=== PATIENT | female | born 1985 | race Two or more races ===

== ENCOUNTER 2023-01-12 08:23 | Inpatient (IN) | payer MEDICAID, SELFPAY ==
[2023-01-12] VITALS (8 sets, daily range): BP systolic 103–116; BP diastolic 62–79; PULSE 59–95; RESP 16–25; TEMP 36.4–37.2; O2SAT 98–100; BMI 15.7
--- NOTE | ~2023-01-12 | CT_ITS ---
EXAMINATION: EXAMINATION: CT ABDOMEN AND PELVIS WITH CONTRAST CLINICAL INFORMATION: ABD pain, nausea, diarrhea, hx crohns COMPARISON: None. TECHNIQUE: Multidetector volumetric imaging was performed from the superior aspect of the liver through the pubic symphysis following administration of 85 mL Omnipaque 300 intravenous contrast. Sagittal and coronal reformatted images were obtained on the technologist workstation.. This CT examination was performed using dose optimization techniques as appropriate, variously including the following: *Automated exposure control *Adjustment of mA and/or kV according to patient size (this includes techniques or standardized protocols for targeted exams where dose is matched to indication/reason for exam; i.e. extremities or head) *Use of iterative reconstruction technique DLP: 226 mGy-cm FINDINGS: LUNG BASES: Minimal dependent right basilar atelectasis. LIVER, GALLBLADDER, AND BILIARY TREE: The liver is normal in size, shape, and attenuation. Incidental perfusional change adjacent to the falciform ligament and segment 4 of the liver of no clinical significance. No focal hepatic lesion or biliary ductal dilatation is present. The gallbladder is contracted but otherwise unremarkable with no evidence of radiopaque gallstones, gallbladder wall thickening, or obvious pericholecystic inflammatory changes. PANCREAS: There is subtle heterogeneous hypoattenuation between the head of the pancreas and adjacent duodenum. Sequela of groove pancreatitis could have this appearance and clinical correlation with amylase and lipase levels would be recommended. Pancreatic duct measures up to 4 mm in maximal diameter SPLEEN: Unremarkable. ADRENAL GLANDS: Unremarkable. KIDNEYS AND URETERS: The kidneys are normal in size, shape, and attenuation. No hydronephrosis, hydroureter, or calculi seen. No perinephric stranding. BLADDER: Unremarkable. GASTROINTESTINAL TRACT: Postoperative changes are seen with a right lower quadrant ileostomy. There is some mucosal enhancement within the bowel extending up to the ostomy site for relatively long segment extending from the ostomy into the right pelvis but I do not appreciate any definitive small bowel dilatation or obstructive obstruction. The rectum is not able to be clearly defined suggesting likely prior prostatectomy but this could be clinically correlated. Free fluid and uterus have fallen into the deep pelvis which limits assessment of this area. Patient is likely status post total colectomy and I do not appreciate any definitive: On the study although decompressed bowel loops do limit assessment. Correlation with patient's surgical history would be needed. ABDOMINAL WALL: Right lower quadrant ileostomy. LYMPHOVASCULAR STRUCTURES: No lymphadenopathy. The aorta is unremarkable. Circumaortic left renal vein. PELVIC VISCERA: Unremarkable. OSSEOUS STRUCTURES: Unremarkable. CT/CT abdomen pelvis w IV con IMPRESSION: 1. Patient is status post total colectomy with right lower quadrant ileostomy. There is abnormal mucosal enhancement within the small bowel extending up to the ostomy site but I do not appreciate any evidence for upstream obstruction. Patient is likely status post total colectomy with no definitive residual: Able to be delineated on the study. There is free fluid and uterus in the deep pelvis which limits assessment of this area. 2. There is abnormal heterogeneous hypoattenuation between the head of the pancreas and adjacent duodenum. Sequela of groove pancreatitis could have this appearance and clinical correlation with amylase and lipase levels would be recommended. I do not appreciate any discrete peripancreatic fluid collection or pancreatic parenchymal calcifications. There is mild prominence to the pancreatic duct measuring up to 4 mm in maximal diameter. Unfortunately I do not have prior images to compare to.
--- NOTE | ~2023-01-12 | XR_ITS ---
EXAMINATION: XR CHEST CLINICAL INFORMATION: Port identification COMPARISON: None available. TECHNIQUE: Frontal view of the chest was obtained. FINDINGS: A right-sided CT compatible Port-A-Cath is in place with the deep of the catheter projecting over the expected location of the superior cavoatrial junction. No evidence of pneumothorax. The lungs are symmetrically adequately expanded. The lungs are essentially appear clear without evidence of focal consolidation or changes of congestion. No evidence of pleural effusions. Cardiomediastinal silhouette is normal. Visualized upper abdomen and visualized osseous structures grossly appear unremarkable. XR/XR chest 1V IMPRESSION: Right-sided CT compatible Port-A-Cath tip terminates over the expected location of the superior cavoatrial junction. No pneumothorax. No acute pulmonary process.
--- NOTE | ~2023-01-12 | XR_ITS ---
EXAMINATION: XR ABDOMEN KUB CLINICAL INDICATION: Constipation, evaluate for obstruction. COMPARISON: CT abdomen/pelvis 01/12/2023. TECHNIQUE: AP view of the abdomen. 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 Stable nonspecific prominence of some loops of small bowel in the lower abdomen and pelvis compared to the CT from 01/12/2023. Unchanged gastric distention. No acute osseous findings. No abnormal soft tissue calcifications. Lung bases are clear. XR/XR KUB IMPRESSION: 1. Total colectomy with right lower quadrant ileostomy. 2. Stable nonspecific prominence of some loops of small bowel in the lower abdomen and pelvis. 3. Unchanged gastric distention.
--- NOTE | 2023-01-12 09:08 | ED.ABDPAIN ---
HPI - Abdominal Pain General Chief Complaint: Abdominal Pain Stated Complaint: Surgery post op pain Time Seen by Provider: 01/12/23 08:48 Source: patient Mode of arrival: ambulatory Limitations: language barrier ( Turkish-speaking medical billing manager utilized) History of Present Illness HPI narrative: patient is a 37-year-old female who presents to the emergency department for evaluation of abdominal pain. Patient moved here recently from [facility] where she was previously residing. Her prior care has been at [facility], followed by the gastroenterology office. She has a longstanding history of Crohn's disease with bowel obstructions and a colostomy. States that she has been on Remicade in the past but most recently on Cimzia, although she has not taken this for the past 3-4 months. Reporting that in August and September she was in [place]. She return to [place] in October and states that she underwent a surgery for bowel obstruction on 11/05/2022. She presents with increasing Diffuse abdominal pain, multiple watery stools daily 5-10, chills, nausea, and increasing weight loss though she cannot quantify exact amount or over how much time. Denies hematochezia, melena. denies known fever, sick contacts, chest pain, shortness of breath, difficulty breathing, numbness or tingling of her extremities, genitourinary symptoms. Related Data Home Medications Medication Instructions Recorded Confirmed oxycodone 5 mg tablet 5 mg PO QID PRN PHARMACY 01/12/23 01/12/23 zolpidem 5 mg tablet 5 mg PO BEDTIME PRN Insomnia 01/12/23 Allergies Allergy/AdvReac Type Severity Reaction Status Date / Time vancomycin Allergy Anaphylaxis Verified 01/12/23 08:38 Review of Systems Review of Systems Yes all other systems are reviewed and are negative FORMERLY [facility], [facility] Past Medical History Attestation statement: The following information was validated with the patient. Source: old records reviewed Medical History (Updated 01/12/23 @ 18:14 by Khadra Porter CNP) Colostomy in place History of small bowel obstruction Crohn's disease Social History Social History Patient Tobacco Use Status: Current everyday Tobacco user Advance Directives: No Advance Directives Information Provided: Yes Physical Exam ED Vital Signs: Vital Signs - 24 hr 01/12/23 08:39 01/12/23 11:29 01/12/23 12:58 Temperature 98.1 F 99.0 F 98.4 F Pulse Rate 95 87 70 Respiratory Rate 16 16 16 Blood Pressure 112/69 112/72 103/62 Pulse Oximetry 98 100 99 Oxygen Delivery Method Room Air Room Air Room Air 01/12/23 14:25 Temperature 98.6 F Pulse Rate 77 Respiratory Rate 16 Blood Pressure 116/79 Pulse Oximetry 99 Oxygen Delivery Method Room Air BMI result Body Mass Index 15.7 Appearance: Alert.?Oriented to person, place and time. No acute distress.?Normal affect. Eyes: Pupils equal, round and reactive to light.? ENT: Pharynx normal.?? Neck: Normal inspection.? Neck supple.?? CVS: Heart sounds normal. Normal heart rate and rhythm.? Pulses normal.?? Respiratory: No respiratory distress.? Lung sounds clear to auscultation bilaterally?? Abdomen: Soft flat, with surgical scars. Right-sided ileostomy with watery output. Diffuse tenderness upon palpation. Normoactive bowel sounds. No pulsatile mass.?? Skin: Skin warm and dry.? Normal skin color.? Extremities: No lower extremity edema. Neuro: Moves all extremities spontaneously. Sensation intact bilaterally Ambulates with normal steady gait. Procedures EJ/Peripheral Line Arm R: Time Out Performed: Yes Skin Cleansed in Sterile Fashion: Yes Size (gauge): 20 IV Secured and Dressing Applied: Yes Patient Tolerated Procedure: well Additional Comments: US guided access Course Reevaluation(s) Reevaluation #1: CBC reveals no evidence of leukocytosis, microcytic anemia with hemoglobin and hematocrit 9.9 and 35.2, unaware baseline, no current reports of active bleeding. CMP is overall unremarkable. Lipase within normal limits. HCG is negative. Mildly elevated CRP at 0.82, with ESR normal at 16. No lactic acidosis. CT of the abdomen and pelvis is pending at this time. Time: 13:43 Reevaluation #2: CT of the abdomen and pelvis revealing ileostomy with abnormal closely enhancement within the small bowel a without evidence of obstruction, hypoattenuation between head of the pancreas and adjacent duodenum which may be attributed to sequela of pancreatitis although lipase levels are normal i suspect less likely acute pancreatitis. I consulted with gastroenterology; Dr. Higgins recommends obtaining GI panel, C diff, fecal procal, and single dose of Solu-Medrol pending studies prior to continuing solumedrol and re-evaluation with admission. Time: 15:21 Reevaluation #3: spoke with hospitalist service; Dr. Babcock who accepts patient for admission to medicine service, fore adamaris suh. Patient agreeable with plan of care. Time: 16:07 Medical Decision Making Medical Decision Making MDM Narrative: Patient is a 37-year-old female with past medical history of Crohn's disease and anemia presenting to the emergency department for evaluation of increasing abdominal pain with nausea diarrhea and weight loss. She has recently moved to the area and has not yet established care with a new pipe caulker. Plan to attempt to obtain records from [facility], though with being the weekend I anticipate that there may be some difficulty in obtaining these records today. Will obtain CBC to evaluate for leukocytosis/ anemia, CMP and lipase to evaluate for abnormal electrolytes /abnormal renal function/ abnormal hepatic/biliary function, ESR and CRP, CT of the abdomen and pelvis and Urinalysis. Patient received 1 L normal saline IV fluid, Zofran IV for nausea, Dilaudid IV for pain as she reports that morphine has not previously alleviated her pain. Differential Diagnosis Differential Diagnoses: The differential diagnosis associated with the presentation includes (Crohn's flare, bowel obstruction, colitis, gastroenteritis, viral syndrome) Admission/Observation Consideration of admission/observation: Escalation of care including admission/observation considered (I considered admission for abdominal pain, see course narrative for further detail) Consult Healthcare Provider Management of the patient was discussed with: Hospitalist (see course narrative) and Business Insurance Agent (see course narrative) Lab Data [facility] Lab Attestation statement: I reviewed the patient's lab results. (See course narrative for further detail) 01/12/23 10:54 01/12/23 11:23 Labs: Lab Results 01/12/23 01/12/23 01/12/23 Range/Units 10:54 10:55 11:23 WBC 8.3 (4.8-10.8) X10*3/uL RBC 5.23 (4.20-5.50) X10*6/uL Hgb 9.9 L (12.0-16.0) g/dl Hct 35.2 L (37.0-47.0) % MCV 67.3 L (80.0-98.0) fL MCH 18.9 L (27.0-33.0) pg MCHC 28.1 L (31.0-35.0) g/dl RDW 25.7 H (11.0-16.0) % Plt Count 337 (160-400) X10*3/uL MPV Not Reportable Immature Gran % (Auto) 0.1 (0.0-0.4) % Neut % (Auto) 66.7 (45-73) % Lymph % (Auto) 24.1 (20-40) % [place] % (Auto) 6.6 (2-11) % Eos % (Auto) 2.0 (0-4) % Baso % (Auto) 0.5 (0-2) % Lymph # (Auto) 2.0 (1.2-4.9) X10*3/uL [place] # (Auto) 0.6 (0.1-1.2) X10*3/uL Eos # (Auto) 0.2 (0.0-0.4) X10*3/uL Baso # (Auto) 0.0 (0.0-0.2) X10*3/uL Abs Immat Gran (auto) 0.01 (0.00-0.03) X10*3/uL Absolute Neuts (auto) 5.6 (2.0-8.3) x10*3/uL Absolute Nucleated RBC 0.000 (0.0-0.012) X10*3/uL Nucleated RBC % (auto) 0.0 (0.0-0.2) /100WBC ESR 16 (0-20) MM/HR Sodium 142 (135-145) mmol/L Potassium 3.6 (3.3-5.1) mmol/L Chloride 110 H (96-108) mmol/L Carbon Dioxide 24 (22-29) mmol/L Anion Gap 12 (12-20) BUN 7 L (9-16) mg/dL Creatinine 0.57 (0.5-1.4) mg/dL Estim Creat Clear Calc 84.0 Estimated GFR > 60 Random Glucose 84 (60-115) mg/dL Lactic Acid 1.9 (0.5-2.0) mmol/L Calcium 10.0 (8.4-10.2) mg/dL Total Bilirubin 0.3 (0.0-1.0) mg/dL AST 18 (5-31) U/L ALT 10 (0-31) U/L Alkaline Phosphatase 78 (39-117) U/L C-Reactive Protein 0.82 H (< or = 0.50) mg/dL Total Protein 9.0 H (6.5-8.0) g/dL Albumin 4.5 (3.5-5.0) g/dL Amylase 85 (28-100) U/L Lipase 58 (8-78) U/L Beta HCG, Quant < 2 mIU/mL Independent Interpretation I performed an independent interpretation of an: Plain X-Ray Radiology Impression Discussion of test interpretation with radiology: I have reviewed the radiologist's reading. Radiologist Impression: XR/XR chest 1V IMPRESSION: Right-sided CT compatible Port-A-Cath tip terminates over the expected location of the superior cavoatrial junction. No pneumothorax. No acute pulmonary process. CT/CT abdomen pelvis w IV con IMPRESSION: 1. Patient is status post total colectomy with right lower quadrant ileostomy. There is abnormal mucosal enhancement within the small bowel extending up to the ostomy site but I do not appreciate any evidence for upstream obstruction. Patient is likely status post total colectomy with no definitive residual: Able to be delineated on the study. There is free fluid and uterus in the deep pelvis which limits assessment of this area. 2. There is abnormal heterogeneous hypoattenuation between the head of the pancreas and adjacent duodenum. Sequela of groove pancreatitis could have this appearance and clinical correlation with amylase and lipase levels would be recommended. I do not appreciate any discrete peripancreatic fluid collection or pancreatic parenchymal calcifications. There is mild prominence to the pancreatic duct measuring up to 4 mm in maximal diameter. Unfortunately I do not have prior images to compare to. Medications Administered Generic Name Dose Route Start Last Admin Trade Name Freq PRN Reason Stop Dose Admin Heparin Sodium (Porcine) 5,000 unit 01/12/23 16:30 01/12/23 16:41 Heparin Sodium,Porcine 5,000 Unit/Ml Vial SUBCUT 5,000 unit Q12H MATHIEU Administration Hydromorphone HCl 1 mg 01/12/23 16:26 01/12/23 16:42 Hydromorphone Hcl 1 Mg/Ml Syringe IVPUSH 1 mg Q4H PRN Administration Pain, Severe (Pain Scale 7-10) Protocol Sodium Chloride 1,000 mls @ 75 mls/hr 01/12/23 16:30 01/12/23 16:41 Ns IVCONT 75 mls/hr .[id number] MATHIEU Administration Discontinued Medications Generic Name Dose Route Start Last Admin Trade Name Jose PRN Reason Stop Dose Admin Hydromorphone HCl 1 mg 01/12/23 09:05 01/12/23 11:33 Hydromorphone Hcl 1 Mg/Ml Syringe IVPUSH 01/12/23 09:06 1 mg ONCE ONE Administration Protocol Hydromorphone HCl 0.5 mg 01/12/23 13:52 01/12/23 13:58 Hydromorphone Hcl 0.5 Mg/0.5 Ml Syringe IVPUSH 01/12/23 13:53 0.5 mg ONCE ONE Administration Protocol Sodium Chloride 1,000 mls @ 999 mls/hr 01/12/23 08:45 01/12/23 12:48 Ns IV 01/12/23 09:45 Infused .Q1H1M MATHIEU Infusion Iohexol 85 ml 01/12/23 12:56 01/12/23 12:57 Iohexol 350 Mg/Ml 75 Ml Infus..Btl IV 01/12/23 12:57 85 ml ONCE ONE Administration Methylprednisolone Sodium Succinate 60 mg 01/12/23 15:57 01/12/23 16:41 Methylprednisolone Sod Succ 125 Mg/2 Ml Vial IVPUSH 01/12/23 15:58 60 mg ONCE ONE Administration Ondansetron HCl 4 mg 01/12/23 09:05 01/12/23 11:33 Ondansetron Hcl 4 Mg/2 Ml Vial IVPUSH 01/12/23 09:06 4 mg ONCE ONE Administration Discharge Plan Discharge Clinical Impression: Exacerbation of Crohn's disease Patient Disposition: Admitted As Inpatient
--- NOTE | 2023-01-12 10:10 | PC.NURSE ---
awaiting xray to identify the port, pt is difficult stick.
[2023-01-12 11:02] LABS: MANUAL DIFF FLAG NO
--- NOTE | 2023-01-12 11:07 | PC.NURSE ---
multiple attempts to access port, iv attempt unsuccessful. provider at bedside for ultrasound guided iv
[2023-01-12 11:10] LABS: Basophils Percent Auto 0.5 % (0-2); Eosinophils Absolute Auto 0.2 X10*3/uL (0.0-0.4); Hematocrit 35.2 % (37.0-47.0); Hemoglobin 9.9 g/dl (12.0-16.0); Imm Gran Abs Auto 0.01 X10*3/uL (0.00-0.03); Imm Gran Pct Auto 0.1 % (0.0-0.4); Lymphocytes Percent Auto 24.1 % (20-40); Mean Corpuscular HGB Conc 28.1 g/dl (31.0-35.0); Mean Corpuscular Hemoglobin 18.9 pg (27.0-33.0); Mean Corpuscular Volume 67.3 fL (80.0-98.0); Monocytes Absolute Auto 0.6 X10*3/uL (0.1-1.2); Monocytes Percent Auto 6.6 % (2-11); Neutrophils Absolute Auto 5.6 x10*3/uL (2.0-8.3); Neutrophils Percent Auto 66.7 % (45-73); Platelet Count 337 X10*3/uL (160-400); Red Blood Count 5.23 X10*6/uL (4.20-5.50); Red Cell Distribution Width 25.7 % (11.0-16.0); White Blood Count 8.3 X10*3/uL (4.8-10.8)
[2023-01-12 11:17] LABS: Lactic Acid 1.9 mmol/L (0.5-2.0)
[2023-01-12] MEDS: ondansetron HCL 4 MG/2 ML VIAL IVPUSH (11:33)
[2023-01-12] MEDS: HYDROmorphone HCl 1 MG/ML SYRINGE IVPUSH ×3 (11:33→20:50)
[2023-01-12] MEDS: 0.9 % Sodium Chloride 1,000 ML 999 ML IV (11:33)
--- NOTE | 2023-01-12 11:36 | PC.NURSE ---
ultrasound guided iv established, medicated per the MAR with fluids infusing
[2023-01-12 11:49] LABS: Erythrocyte Sedimentation Rate 16 MM/HR (0-20)
[2023-01-12 11:55] LABS: Alanine Aminotransferase 10 U/L (0-31); Albumin Level 4.5 g/dL (3.5-5.0); Alkaline Phosphatase 78 U/L (39-117); Anion Gap 12 (12-20); Aspartate Amino Transferase 18 U/L (5-31); Bilirubin Total 0.3 mg/dL (0.0-1.0); Blood Urea Nitrogen 7 mg/dL (9-16); C Reactive Protein 0.82 mg/dL (< or = 0.50); Carbon Dioxide 24 mmol/L (22-29); Chloride 110 mmol/L (96-108); Estimated Glomerular Filt Rate > 60; Glucose Random 84 mg/dL (60-115); Lipase 58 U/L (8-78); Potassium 3.6 mmol/L (3.3-5.1); Sodium 142 mmol/L (135-145)
[2023-01-12 11:57] LABS: HCG Quantitative < 2 mIU/mL
--- NOTE | 2023-01-12 12:48 | PC.NURSE ---
fluids have completed infusion. at CT scan at this time
[2023-01-12] MEDS: iohexoL 350 MG/ML 75 ML INFUS..BTL 85 ML IV (12:57)
[2023-01-12] MEDS: HYDROmorphone HCl 0.5 MG/0.5 ML SYRINGE IVPUSH (13:58)
--- NOTE | 2023-01-12 15:46 | PC.NURSE ---
continues to rest quietly in room, pt adamantly requesting to eat - provider stated no food or drinks at this time. call romo within reach.
[2023-01-12 15:54] LABS: Amylase 85 U/L (28-100)
--- NOTE | 2023-01-12 16:16 | PM.IMHP ---
History of Present Illness Date of Service: 01/12/23 Chief Complaint: Abdominal pain and diarrhea 37-year-old woman with a history of Crohn's disease and is status post colectomy and colostomy. She recently moved from [facility] and had been on Remicade at 1 point but most recently Cimzia. She does report that she has not taken it in the last 3 months. Her last surgery was in October where she was diagnosed with a bowel obstruction. Today she reports increased diffuse abdominal pain with at least 5-10 watery stools a day. She also reports chills, nausea and poor appetite with weight loss. She mostly has chronic abd pain. She is also currently homeless. No fever leukocytosis noted, labs within acceptable limits. Abdominal CT showing since possibly some sequela pancreatitis but has a normal lipase. Chest x-ray shows no consolidation or effusion. In the ER she was given a dose of Solu-Medrol, Dilaudid, Zofran and IV fluids. She will be admitted for further management and treatment of acute on chronic Crohn's flare Review of Systems Review of Systems: Denies any recent fever chills or decrease in appetite respiratory denies any shortness of breath coverage production cardiovascular denies chest pain gastrointestinal see HPI genitourinary denies any dysuria frequency or hematuria musculoskeletal denies any joint pain or swelling neuropsych denies any weakness or seizures all other systems reviewed are negative [facility] Medical History (Updated 01/12/23 @ 18:14 by Khadra Porter CNP) Colostomy in place History of small bowel obstruction Crohn's disease Social History Household Members: None Housing: Homeless Do you presently have visiting nurse or other home services: No Patient Tobacco Use Status: Current everyday Tobacco user Cigarettes Per Day: 7 Patient Interested in Nicotine Replacement: No Use of substances other than those prescribed or required for medical reasons: No Substance Use Type: Marijuana Last Used Substance: Weeks (ago) Last Used Substance Other:: 2 weeks ago, marijuana Currently Displaying Signs/Symptoms of Drug Intoxication Withdrawal: No Have you been hit, kicked, punched, or otherwise hurt by someone within the past year? If so, by whom?: No Is there a partner from a previous relationship who is making you feel unsafe now?: No Are you made to feel afraid or neglected: No Advance Directives: No Advance Directives Information Provided: Yes Do you have thoughts of harming others: None Do you have a plan to hurt others: No Plan Nutrition Risks: No Nutritional Risk Patient : No service: No Meds Allergies Allergy/AdvReac Type Severity Reaction Status Date / Time vancomycin Allergy Anaphylaxis Verified 01/12/23 08:38 Home Medications Medication Instructions Recorded Confirmed Last Taken Type oxycodone 5 mg tablet 5 mg PO QID PRN PHARMACY 01/12/23 01/12/23 12/29/22 History zolpidem 5 mg tablet 5 mg PO BEDTIME PRN Insomnia 01/12/23 12/29/22 History Physical Exam Vital Signs and Narrative: Vital Signs: Last Vital Signs Temp 98.6 F 01/12/23 14:25 Pulse 77 01/12/23 14:25 Resp 16 01/12/23 14:25 BP 116/79 01/12/23 14:25 Pulse Ox 99 01/12/23 14:25 O2 Del Method Room Air 01/12/23 14:25 BMI result Body Mass Index 15.7 Appearing in no acute distress head is normocephalic atraumatic eyes pupils are PERRLA sclera is anicteric mouth throat mucous membranes are intact and moist neck is supple no lymphadenopathy, no JVD noted lung sounds are clear to auscultation heart regular rate rhythm, clear S1, S2 positive bowel sounds, abdomen is soft, diffuse tenderness, colostomy neuro patient is alert x3, no focal deficits Results Labs 01/13/23 09:36 01/13/23 09:36 Labs: Laboratory Results - last 24 hr 01/12/23 01/12/23 01/12/23 10:54 10:55 11:23 MCV 67.3 L MCH 18.9 L MCHC 28.1 L RDW 25.7 H Plt Count 337 MPV Not Reportable Immature Gran % (Auto) 0.1 Neut % (Auto) 66.7 Lymph % (Auto) 24.1 [place] % (Auto) 6.6 Eos % (Auto) 2.0 Baso % (Auto) 0.5 Lymph # (Auto) 2.0 [place] # (Auto) 0.6 Eos # (Auto) 0.2 Baso # (Auto) 0.0 Abs Immat Gran (auto) 0.01 Absolute Neuts (auto) 5.6 Absolute Nucleated RBC 0.000 Nucleated RBC % (auto) 0.0 ESR 16 Anion Gap 12 Estim Creat Clear Calc 84.0 Estimated GFR > 60 Random Glucose 84 Lactic Acid 1.9 Calcium 10.0 Total Bilirubin 0.3 AST 18 ALT 10 Alkaline Phosphatase 78 C-Reactive Protein 0.82 H Total Protein 9.0 H Albumin 4.5 Amylase 85 Lipase 58 Beta HCG, Quant < 2 Imaging Radiologist's Impressions: Impressions Chest X-Ray 01/12/23 10:13 IMPRESSION: Right-sided CT compatible Port-A-Cath tip terminates over the expected location of the superior cavoatrial junction. No pneumothorax. No acute pulmonary process. Abdomen/Pelvis CT 01/12/23 12:57 IMPRESSION: 1. Patient is status post total colectomy with right lower quadrant ileostomy. There is abnormal mucosal enhancement within the small bowel extending up to the ostomy site but I do not appreciate any evidence for upstream obstruction. Patient is likely status post total colectomy with no definitive residual: Able to be delineated on the study. There is free fluid and uterus in the deep pelvis which limits assessment of this area. 2. There is abnormal heterogeneous hypoattenuation between the head of the pancreas and adjacent duodenum. Sequela of groove pancreatitis could have this appearance and clinical correlation with amylase and lipase levels would be recommended. I do not appreciate any discrete peripancreatic fluid collection or pancreatic parenchymal calcifications. There is mild prominence to the pancreatic duct measuring up to 4 mm in maximal diameter. Unfortunately I do not have prior images to compare to. Assessment and Plan (1) Exacerbation of Crohn's disease: Status: Acute Plan 37-year-old woman admitted with acute on chronic abdominal pain likely secondary to Crohn's flare Possible acute on chronic Crohn's flare previously on Cimzia, but not for 3 months Continue IV Solu-Medrol 60 mg daily stool studies ordered and results are pending GI consultation pending IV fluids Clear liquid diet so if able to tolerate for now Pain management Microcytic anemia No signs of acute blood loss Monitor H&H DVT prophylaxis with heparin Full code Patient requires 2 inpatient midnights for treatment of acute on chronic Crohn's flare requiring pain management with IV narcotics and IV steroids Time Spent With Patient Time: Total time managing care of this patient today ____ minutes. Quality Stroke Does the patient have a stroke diagnosis?: No VTE Prior VTE?: No VTE Risk Level:: Medical - moderate - high VTE Device Contraindication: Treatment Not Indicated VTE Drug Contraindication: N/A - Med Ordered
[2023-01-12] MEDS: 0.9 % Sodium Chloride 1,000 ML 75 ML IVCONT (16:41)
[2023-01-12] MEDS: Heparin Sodium,Porcine 5,000 UNIT/ML VIAL 5000 UNIT SUBCUT (16:41)
[2023-01-12] MEDS: methylPREDNISolone Sod Succ 125 MG/2 ML VIAL 60 MG IVPUSH (16:41)
--- NOTE | 2023-01-12 17:08 | PC.NURSE ---
medicated per the MAR for pain, normal saline infusing 75ml/hr. pt educated on need to be on clear liquid diets for the time being, refusing and eating a sub that her friend brought her. call romo within reach awaiting bed assignment
--- NOTE | 2023-01-12 17:10 | PHA.MEDREC ---
Pharmacy Consult ? Medication Reconciliation Pharmacy has completed the medication reconciliation.Patient knew medication but said stop most meds months ago and only taking oxycodone and zolpidem now
--- NOTE | 2023-01-12 19:57 | PC.NURSE ---
report given to taiwo Fraser
[2023-01-13] MEDS: HYDROmorphone HCl 1 MG/ML SYRINGE IVPUSH ×4 (00:50→13:11)
--- NOTE | 2023-01-13 01:06 | PC.NURSE ---
Pt reports pyoderma r/t Crohn's disease to RLE extending from below the knee to ankle. Pt states dressing was changed this morning and refusing full assessment or dressing change at this time. Scant drainage noted on dressing. Pt agreeable to dressing change in the morning.
[2023-01-13 03:53] VITALS: BP 112/66; PULSE 60; RESP 18; TEMP 36.6; O2SAT 99
[2023-01-13] MEDS: Heparin Sodium,Porcine 5,000 UNIT/ML VIAL 5000 UNIT SUBCUT (04:59)
[2023-01-13] MEDS: 0.9 % Sodium Chloride 1,000 ML 75 ML IVCONT (05:00)
[2023-01-13 06:20] LABS: CDiff Gene PCR POSITIVE (Negative)
[2023-01-13 06:51] LABS: CDIFF Internal ctrl Dots and bkg OK (V); CDiff Toxin Negative (Negative)
[2023-01-13 07:27] VITALS: BP 112/56; PULSE 61; RESP 20; TEMP 37.3; O2SAT 99
[2023-01-13] MEDS: methylPREDNISolone Sod Succ 125 MG/2 ML VIAL 60 MG IVPUSH (09:08)
[2023-01-13] MEDS: 0.9 % Sodium Chloride Flush 3 ML SYRINGE IVFLUSH ×3 (09:08→23:47)
--- NOTE | 2023-01-13 09:08 | HO.PM.IMPN ---
Subjective Subjective Date of Service: 01/13/23 Review of Systems Follow up crohns flare still with some abd pain and diarrhea no nausea and vomiting Physical Exam Vital Signs: Vital Signs: Last Vital Signs Temp 99.1 F 01/13/23 07:27 Pulse 61 01/13/23 07:27 Resp 20 01/13/23 07:27 BP 112/56 L 01/13/23 07:27 Pulse Ox 99 01/13/23 07:27 O2 Del Method Room Air 01/13/23 07:27 BMI result Body Mass Index 15.7 Appearing in no acute distress lung sounds are clear to auscultation heart regular rate rhythm, clear S1, S2 positive bowel sounds, abdomen is soft, nontender neuro patient is alert x3, no focal deficits Objective Data Active Medications Acetaminophen (Acetaminophen 325 Mg Tablet) 650 mg PO Q6H PRN PRN Reason: Pain, Mild (Pain Scale 1-3) Heparin Sodium (Porcine) (Heparin Sodium,Porcine 5,000 Unit/Ml Vial) 5,000 unit SUBCUT Q12H [facility] Last Admin: 01/13/23 04:59 Dose: 5,000 unit Documented By: FLORENCE Hydromorphone HCl (Hydromorphone Hcl 1 Mg/Ml Syringe) 1 mg IVPUSH Q4H PRN; Protocol PRN Reason: Pain, Severe (Pain Scale 7-10) Last Admin: 01/13/23 09:06 Dose: 1 mg Documented By: VITO Sodium Chloride (Ns) 1,000 mls @ 75 mls/hr IVCONT .[id number] [facility] Last Admin: 01/13/23 05:00 Dose: 75 mls/hr Documented By: FLORENCE Methylprednisolone Sodium Succinate (Methylprednisolone Sod Succ 125 Mg/2 Ml Vial) 60 mg IVPUSH DAILY [facility] Ondansetron HCl (Ondansetron Hcl 4 Mg/2 Ml Vial) 4 mg IVPUSH Q8H PRN PRN Reason: Nausea and Vomiting Sodium Chloride (0.9 % Sodium Chloride Flush 3 Ml Syringe) 3 ml IVFLUSH QSHIFT [facility] Last Admin: 01/13/23 00:04 Dose: Not Given Documented By: FLORENCE Non-Admin Reason: IV Running Labs 01/13/23 09:36 01/13/23 09:36 Labs: Laboratory Results - last 24 hr 01/12/23 01/12/23 01/12/23 10:54 10:55 11:23 MCV 67.3 L MCH 18.9 L MCHC 28.1 L RDW 25.7 H Plt Count 337 MPV Not Reportable Immature Gran % (Auto) 0.1 Neut % (Auto) 66.7 Lymph % (Auto) 24.1 Reynolds % (Auto) 6.6 Eos % (Auto) 2.0 Baso % (Auto) 0.5 Lymph # (Auto) 2.0 [place] # (Auto) 0.6 Eos # (Auto) 0.2 Baso # (Auto) 0.0 Abs Immat Gran (auto) 0.01 Absolute Neuts (auto) 5.6 Absolute Nucleated RBC 0.000 Nucleated RBC % (auto) 0.0 ESR 16 Anion Gap 12 Estim Creat Clear Calc 84.0 Estimated GFR > 60 Random Glucose 84 Lactic Acid 1.9 Calcium 10.0 Total Bilirubin 0.3 AST 18 ALT 10 Alkaline Phosphatase 78 C-Reactive Protein 0.82 H Total Protein 9.0 H Albumin 4.5 Amylase 85 Lipase 58 Beta HCG, Quant < 2 C. difficile Tox B Gene C. difficile Toxin A&B C. difficile Interpret 01/13/23 04:50 MCV MCH MCHC RDW Plt Count MPV Immature Gran % (Auto) Neut % (Auto) Lymph % (Auto) Reynolds % (Auto) Eos % (Auto) Baso % (Auto) Lymph # (Auto) Reynolds # (Auto) Eos # (Auto) Baso # (Auto) Abs Immat Gran (auto) Absolute Neuts (auto) Absolute Nucleated RBC Nucleated RBC % (auto) ESR Anion Gap Estim Creat Clear Calc Estimated GFR Random Glucose Lactic Acid Calcium Total Bilirubin AST ALT Alkaline Phosphatase C-Reactive Protein Total Protein Albumin Amylase Lipase Beta HCG, Quant C. difficile Tox B Gene POSITIVE A* C. difficile Toxin A&B Negative C. difficile Interpret SEE NOTE Assessment and Plan (1) Exacerbation of Crohn's disease: Status: Acute Plan 37-year-old woman admitted with acute on chronic abdominal pain likely secondary to Crohn's flare Possible acute on chronic Crohn's flare previously on Cimzia, but not for 3 months Continue IV Solu-Medrol 60 mg daily stool studies ordered and results are pending GI consultation pending IV fluids patient insisiting on eating solid food, reg diet started Pain management CDIFF allergy to vancomycin add flagyl 500mg TID for 10 days Microcytic anemia No signs of acute blood loss Monitor H&H DVT prophylaxis with heparin Attending Dr. Sinha Full code Continue hospitalization for treatment of acute on chronic Crohn's flare requiring pain management with IV narcotics and IV steroids Time Spent With Patient Time: Total time managing care of this patient today ____ minutes. Quality Stroke Does the patient have a stroke diagnosis?: No VTE Prior VTE?: No VTE Risk Level:: Medical - moderate - high VTE Device Contraindication: Treatment Not Indicated VTE Drug Contraindication: N/A - Med Ordered
--- NOTE | 2023-01-13 09:35 | MHC.CM.PN ---
EMR REVIEWED, PT ADMITTED W/CHROHNS FLARE, CM MET W/PT VIA BILLET STRAIGHTENER, PT REQUESTING ASSISTANCE W/HALF-WAY/HOUSING/INSURNACE, PT THRIVE ASSESSMENT POSITIVE, PT PROVIDED W/[employer] PAMPHLET/BOOKLET, REFERRAL PLACED TO FS FOR ASSISTANCE W/MH, [facility]YER GIVEN W/[facility]MG PROVIDERS/SPECIALISTS, PT ALSO INTERESTED IN WOUND CLINIC HOWEVER PT WILL NOT BE ABLE TO BE REFERRED UNTIL FIRST NEW PCP APPT. PT REPORTS SHE DOES RECEIVE SS DISABILITY SO SHE DOES HAVE A MONTHLY INCOME HOWEVER REQUESTING HELP W/HOUSING AND WAS INSTRUCTED TO CALL OR VISIT DEPT OF TRANSITIONAL ASSISTANCE TO GET ON WAIT LIST FOR HOUSING, CM DISCUSSED [address] AND [facility] HOWEVER PT WANTS TO STAY IN [place] IF POSSIBLE, PT REPORTS SHE CONTACTED ONE HALF-WAY IN [place] HOWEVER THE HALF-WAY WAS FOR WOMEN W/CHILDREN ONLY. PT DOES NOT HAVE A PCP, HCP, ASSISTANCE OFFERED TO COMPLETE.
[2023-01-13 09:53] LABS: MANUAL DIFF FLAG NO
[2023-01-13 10:04] LABS: Basophils Percent Auto 0.3 % (0-2); Eosinophils Percent Auto 0.1 % (0-4); Hematocrit 30.9 % (37.0-47.0); Hemoglobin 8.9 g/dl (12.0-16.0); Imm Gran Abs Auto 0.02 X10*3/uL (0.00-0.03); Imm Gran Pct Auto 0.2 % (0.0-0.4); Lymphocytes Absolute Auto 3.3 X10*3/uL (1.2-4.9); Lymphocytes Percent Auto 35.2 % (20-40); Mean Corpuscular HGB Conc 28.8 g/dl (31.0-35.0); Monocytes Absolute Auto 0.7 X10*3/uL (0.1-1.2); Monocytes Percent Auto 6.9 % (2-11); Neutrophils Absolute Auto 5.4 x10*3/uL (2.0-8.3); Neutrophils Percent Auto 57.3 % (45-73); Platelet Count 379 X10*3/uL (160-400); Red Blood Count 4.68 X10*6/uL (4.20-5.50); Red Cell Distribution Width 25.1 % (11.0-16.0); White Blood Count 9.4 X10*3/uL (4.8-10.8)
[2023-01-13 10:22] LABS: Anion Gap 10 (12-20); Blood Urea Nitrogen 6 mg/dL (9-16); Calcium 9.7 mg/dL (8.4-10.2); Carbon Dioxide 23 mmol/L (22-29); Chloride 111 mmol/L (96-108); Estimated Glomerular Filt Rate > 60; Glucose Random 83 mg/dL (60-115); Sodium 140 mmol/L (135-145)
[2023-01-13] MEDS: metroNIDAZOLE 500 MG TABLET PO ×2 (11:08→17:11)
[2023-01-13 11:28] LABS: Adenovirus F 40/41 Not Detected (Not Detect.); Astrovirus Not Detected (Not Detect.); Campylobacter Not Detected (Not Detect.); Cryptosporidium Not Detected (Not Detect.); Cyclospora cayetanensis Not Detected (Not Detect.); E. coli EAEC Not Detected (Not Detect.); E. coli EPEC Not Detected (Not Detect.); E. coli ETEC Not Detected (Not Detect.); E. coli STEC Not Detected (Not Detect.); Entamoeba histolytica Not Detected (Not Detect.); Giardia lamblia Not Detected (Not Detect.); Norovirus GI/GII Not Detected (Not Detect.); Plesiomonas shigelloides Not Detected (Not Detect.); Rotavirus A Not Detected (Not Detect.); Salmonella Not Detected (Not Detect.); Sapovirus Not Detected (Not Detect.); Shigella sp./EIEC Not Detected (Not Detect.); Vibrio Not Detected (Not Detect.); Vibrio Cholerae Not Detected (Not Detect.); Yersinia enterocolitica Not Detected (Not Detect.)
[2023-01-13 11:50] VITALS: BMI 15.7
--- NOTE | 2023-01-13 11:55 | MHC.CLN ---
PT IS MODERATELY MALNOURISHED PT WITH MILDLY DEPLETED BODY FAT IN TRICEP AREA AND MILD DEPLETION OF MUSCLE MASS WITH POOR PO <50% X 7 DAYS IN ADDITION TO POOR SOCIO-ECONOMIC STATUS (HOMELESSNESS) DIET RX: REGULAR-MAY CONSIDER BLAND DIET R/T ACUTE ILLNESS RECOMMEND ADDING ENSURE MAX TO INCREASE PO SUPP TO PROVIDE 300KCLAS, 60G PROTEIN MONITOR PO INTAKE CLOSELY SEE ALSO FULL CLINICAL NUTRITION ASSESSMENT
[2023-01-13 13:15] LABS: Appearance Urine Clear; Color Urine Yellow; Glucose Urine UA Negative (Negative); Leukocyte Esterase Urine Trace (Negative); Nitrite Urine Negative (Negative); Specific Gravity - Urine 1.025 (1.005-1.025); UMIC TRIGGER UACC YES; Urine Blood Negative (Negative); Urine Ketones Negative (Negative); Urine Protein Trace mg/dL (Neg-Trace)
[2023-01-13 13:25] LABS: Amphetamine Screen Urine Not Detected (Not Detect); Barbiturates, Urine Not Detected (Not Detect); Benzodiazepines Screen Urine Not Detected (Not Detect); Cannabinoid Screen Urine POSITIVE (Not Detect); Cocaine Screen Urine Not Detected (Not Detect); Fentanyl, urine POSITIVE (Not Detect); Opiate Screen Urine POSITIVE (Not Detect); Phencyclidine Screen Urine Not Detected (Not Detect)
[2023-01-13 13:43] LABS: Bacteria Urine None Seen (None Seen); Hyaline Casts Urine 0-2 /LPF (0-2); RBC Urine 0-2 /HPF (0-2); WBC Urine 0-5 /HPF (0-5)
[2023-01-13 15:17] VITALS: BP 118/70; PULSE 55; RESP 20; TEMP 36.6; O2SAT 100
[2023-01-13] MEDS: HYDROmorphone HCl 1 MG/ML SYRINGE 0.5 MG IVPUSH ×2 (17:11→21:50)
[2023-01-13 19:12] VITALS: BP 143/69; PULSE 66; RESP 20; TEMP 37.1; O2SAT 99
[2023-01-13 23:19] VITALS: BP 123/60; PULSE 50; RESP 18; TEMP 36.5; O2SAT 99
[2023-01-14] MEDS: HYDROmorphone HCl 1 MG/ML SYRINGE 0.5 MG IVPUSH (01:58)
[2023-01-14] MEDS: metroNIDAZOLE 500 MG TABLET PO ×3 (01:59→18:28)
[2023-01-14 03:32] VITALS: BP 170/88; PULSE 58; RESP 18; TEMP 37.2; O2SAT 99
[2023-01-14] MEDS: HYDROmorphone HCl 1 MG/ML SYRINGE IVPUSH ×5 (03:51→20:23)
[2023-01-14 07:57] VITALS: BP 114/68; PULSE 69; RESP 20; TEMP 36.8; O2SAT 100
[2023-01-14] MEDS: methylPREDNISolone Sod Succ 125 MG/2 ML VIAL 60 MG IVPUSH (08:13)
--- NOTE | 2023-01-14 08:15 | HO.WOUNDCONS ---
History of Present Illness Data of Consult Service Date: 01/14/23 Requesting physician: Claire Valdes Primary Care Provider: None Physician HPI Reason for consult: pyoderma [id number]: This is a 37 year female who just moved here from [facility] and has a history of Chron's disease and pyoderma. With the move, she is no longer taking her biologic (TNF-i?) and has painful ulcers on her right leg. They are draining through her dressing. The ulcers are incredibly painful such that she does allows dressing removal. This is also consistent with pyoderma. Review of Systems Review of Systems: No leg swelling. No fever reported. Her appetite is better. [facility] Medical History (Updated 01/14/23 @ 11:59 by JOSE Rhodes) Colostomy in place History of small bowel obstruction Crohn's disease Social History Household Members: None Housing: Homeless Do you presently have visiting nurse or other home services: No Patient Tobacco Use Status: Current everyday Tobacco user Cigarettes Per Day: 7 Patient Interested in Nicotine Replacement: No Use of substances other than those prescribed or required for medical reasons: No Substance Use Type: Marijuana Last Used Substance: Weeks (ago) Last Used Substance Other:: 2 weeks ago, marijuana Currently Displaying Signs/Symptoms of Drug Intoxication Withdrawal: No Have you been hit, kicked, punched, or otherwise hurt by someone within the past year? If so, by whom?: No Is there a partner from a previous relationship who is making you feel unsafe now?: No Are you made to feel afraid or neglected: No Advance Directives: No Advance Directives Information Provided: Yes Do you have thoughts of harming others: None Do you have a plan to hurt others: No Plan Nutrition Risks: No Nutritional Risk Patient : No service: No Meds Allergies Allergy/AdvReac Type Severity Reaction Status Date / Time vancomycin Allergy Anaphylaxis Verified 01/12/23 08:38 Active Medications: Current Medications Acetaminophen (Acetaminophen 325 Mg Tablet) 650 mg PO Q6H PRN PRN Reason: Pain, Mild (Pain Scale 1-3) Heparin Sodium (Porcine) (Heparin Sodium,Porcine 5,000 Unit/Ml Vial) 5,000 unit SUBCUT Q12H [facility] Last Admin: 01/14/23 03:51 Dose: Not Given Hydromorphone HCl (Hydromorphone Hcl 1 Mg/Ml Syringe) 1 mg IVPUSH Q4H PRN; Protocol PRN Reason: Pain, Severe (Pain Scale 7-10) Methylprednisolone Sodium Succinate (Methylprednisolone Sod Succ 125 Mg/2 Ml Vial) 60 mg IVPUSH DAILY [facility] Last Admin: 01/13/23 09:08 Dose: 60 mg Metronidazole (Metronidazole 500 Mg Tablet) 500 mg PO Q8H [facility] Last Admin: 01/14/23 01:59 Dose: 500 mg Ondansetron HCl (Ondansetron Hcl 4 Mg/2 Ml Vial) 4 mg IVPUSH Q8H PRN PRN Reason: Nausea and Vomiting Sodium Chloride (0.9 % Sodium Chloride Flush 3 Ml Syringe) 3 ml IVFLUSH [facility] Last Admin: 01/13/23 23:47 Dose: 3 ml Sodium Chloride (0.9 % Sodium Chloride Flush 3 Ml Syringe) 3 ml IVFLUSH [facility] Last Admin: 01/13/23 23:48 Dose: Not Given Home Medications Medication Instructions Recorded Confirmed Last Taken Type oxycodone 5 mg tablet 5 mg PO QID PRN PHARMACY 01/12/23 01/12/23 12/29/22 History zolpidem 5 mg tablet 5 mg PO BEDTIME PRN Insomnia 01/12/23 12/29/22 History Physical Exam Vital Signs and Narrative: Vital Signs: Last Vital Signs Temp 98.2 F 01/14/23 07:57 Pulse 69 01/14/23 07:57 Resp 20 01/14/23 07:57 BP 114/68 01/14/23 07:57 Pulse Ox 100 01/14/23 07:57 O2 Del Method Room Air 01/14/23 07:57 BMI result Body Mass Index 15.7 Appears underweight. Lacks gastroc bulking bilaterally, will not allow me to remove the right leg dressing. She is adamant because of pain that I not touch her right leg. Drainage is seen weeping through the most proximal and lateral aspect of the dressing. Dorsalis pedis pulses are palpable. No open ulcers on the left leg. Results Labs 01/13/23 09:36 01/13/23 09:36 Labs: Laboratory Results - last 24 hr 01/13/23 01/13/23 01/13/23 04:50 09:36 13:00 MCV 66.0 L MCH 19.0 L MCHC 28.8 L RDW 25.1 H Plt Count 379 MPV Not Reportable Immature Gran % (Auto) 0.2 Neut % (Auto) 57.3 Lymph % (Auto) 35.2 [place] % (Auto) 6.9 Eos % (Auto) 0.1 Baso % (Auto) 0.3 Lymph # (Auto) 3.3 [place] # (Auto) 0.7 Eos # (Auto) 0.0 Baso # (Auto) 0.0 Abs Immat Gran (auto) 0.02 Absolute Neuts (auto) 5.4 Absolute Nucleated RBC 0.000 Nucleated RBC % (auto) 0.0 Anion Gap 10 L Estim Creat Clear Calc 87.0 Estimated GFR > 60 Random Glucose 83 Calcium 9.7 Urine Color Urine Appearance Urine pH Ur Specific [place] Urine Protein Urine Glucose (UA) Urine Ketones Urine Blood Urine Nitrite Ur Leukocyte Esterase Urine RBC Urine WBC Ur Squamous Epith Cells Urine Bacteria Hyaline Casts Stl C. cayetanensis PCR Not Detected Stool Rotavirus A PCR Not Detected Stl Adenov F 40/41 PCR Not Detected Stool Astrovirus (PCR) Not Detected Stool Campylobacter PCR Not Detected Stool Cryptosporidium PCR Not Detected Stl Sh Tox Pr E STEC PCR Not Detected Stool E coli O157 PCR Not applicable Stl Enterotoxigenic E PCR Not Detected Stool EPEC (PCR) Not Detected Stool EAEC (PCR) Not Detected Stl E. histolytica PCR Not Detected Stool Giardia Lamblia PCR Not Detected Stl P. shigelloides PCR Not Detected Stool Salmonella PCR Not Detected Stool Sapovirus (PCR) Not Detected Stl Shigella/EIEC PCR Not Detected St Y.enterocolitica PCR Not Detected Stool Vibrio (PCR) Not Detected Stl Vibrio cholerae PCR Not Detected Stl Norovirus GI/GII PCR Not Detected Urine Opiates Screen POSITIVE H Urine Fentanyl Screen POSITIVE H Ur Barbiturates Screen Not Detected Ur Phencyclidine Scrn Not Detected Ur Amphetamines Screen Not Detected U Benzodiazepines Scrn Not Detected Urine Cocaine Screen Not Detected U Marijuana (THC) Screen POSITIVE H 01/13/23 13:04 MCV MCH MCHC RDW Plt Count MPV Immature Gran % (Auto) Neut % (Auto) Lymph % (Auto) [place] % (Auto) Eos % (Auto) Baso % (Auto) Lymph # (Auto) [place] # (Auto) Eos # (Auto) Baso # (Auto) Abs Immat Gran (auto) Absolute Neuts (auto) Absolute Nucleated RBC Nucleated RBC % (auto) Anion Gap Estim Creat Clear Calc Estimated GFR Random Glucose Calcium Urine Color Yellow Urine Appearance Clear Urine pH 6.0 Ur Specific [place] 1.025 Urine Protein Trace Urine Glucose (UA) Negative Urine Ketones Negative Urine Blood Negative Urine Nitrite Negative Ur Leukocyte Esterase Trace H Urine RBC 0-2 Urine WBC 0-5 Ur Squamous Epith Cells 6-10 Urine Bacteria None Seen Hyaline Casts 0-2 Stl C. cayetanensis PCR Stool Rotavirus A PCR Stl Adenov F 40/41 PCR Stool Astrovirus (PCR) Stool Campylobacter PCR Stool Cryptosporidium PCR Stl Sh Tox Pr E STEC PCR Stool E coli O157 PCR Stl Enterotoxigenic E PCR Stool EPEC (PCR) Stool EAEC (PCR) Stl E. histolytica PCR Stool Giardia Lamblia PCR Stl P. 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 She is likely having a flare of pyoderma in the right leg while off of this medication type. The history, clinical picture and pain with drainage on the right leg support pyoderma diagnosis. Would suggest topical lidocaine ointment applied to the open ulcers for relief of severe pain. Effects of lidocaine with wound healing are well understood (to be negative), however pain with this can be incapacitating. We often do not debride pyoderma because ulcerations tend to exacerbate with this approach. Consider alginate but know that with dressing changes, irrigation will be required. Unclear how much she will be able to tolerate topically due to the painful leg ulcerations associated with pyoderma.. Time Spent With Patient Time: Total time managing care of this patient today ____ minutes.
[2023-01-14] MEDS: 0.9 % Sodium Chloride Flush 3 ML SYRINGE IVFLUSH ×3 (08:17→20:23)
--- NOTE | 2023-01-14 08:27 | PM.GICN ---
History of Present Illness Data of Consult Service Date: 01/14/23 Requesting physician: Claire Valdes Primary Care Provider: None Physician HPI Reason for consult: crohns flare 37-year-old woman with a history of Crohn's disease status post colectomy with ostomy 2012 who I am seeing for assessment. Patient had received most of her care for IBD in [facility], had been on remicade at one point but developed allergy type reaction so was changed to cimzia which she said was working very well for her. She moved her few weeks back and has been out of cimzia and living with different friends. Of note also had surgeyr few months back for ?bowel obstruction She said she had crohsn for 22 yrs altogether and had pyoderma with it as well. She had been c/o chills, nausea and poor appetite with weight loss as well as diffuse abdominal pain with diarrheal stools. She was pos for c diff and placed on flagyl, also received Solu-Medrol, Dilaudid, Zofran and IV fluids. No fever leukocytosis noted, labs with microcytic anemia (no baseline), mild raised CRP, raised TP level, pos c diff PCR, normal lipase IMAGING: Abdominal CT : Sausage shaped pancreas, prominent PD, thickened bowel on left with faecal loading Chest x-ray: no consolidation or effusion. Review of Systems Review of Systems: Constitutional : No Weight loss, No Fever, No Chills ENT/Mouth : No sore throat, No Rhinorrhea Eyes: No Swelling, No Redness Cardiovascular : No Chest Pain, No SOB, No Edema Respiratory : No Cough, No Sputum, No Wheezing Gastrointestinal : see HPI Genitourinary : NO Dysuria, No Urinary Frequency, No Hematuria, No Urgency Musculoskeletal : No joint pain, No Myalgias, No Joint Swelling Skin : No Skin Lesions, No rash Neuro : + Weakness, No Numbness, No Dizziness, No Headache Psych : No Anxiety/Panic, No Depression Heme/Lymph: No Bruising, No Lymphadenopathy Endocrine : No Polyuria, No Polydipsia All other systems reviewed and are negative. [facility] Past Medical History Medical History (Updated 01/14/23 @ 19:48 by Elbert Stark MD) Colostomy in place History of small bowel obstruction Crohn's disease Social History Social History Household Members: None Housing: Homeless Do you presently have visiting nurse or other home services: No Patient Tobacco Use Status: Current everyday Tobacco user Cigarettes Per Day: 7 Patient Interested in Nicotine Replacement: No Use of substances other than those prescribed or required for medical reasons: No Substance Use Type: Marijuana Last Used Substance: Weeks (ago) Last Used Substance Other:: 2 weeks ago, marijuana Currently Displaying Signs/Symptoms of Drug Intoxication Withdrawal: No Have you been hit, kicked, punched, or otherwise hurt by someone within the past year? If so, by whom?: No Is there a partner from a previous relationship who is making you feel unsafe now?: No Are you made to feel afraid or neglected: No Advance Directives: No Advance Directives Information Provided: Yes Do you have thoughts of harming others: None Do you have a plan to hurt others: No Plan Nutrition Risks: No Nutritional Risk Patient : No service: No Meds Allergies Allergy/AdvReac Type Severity Reaction Status Date / Time vancomycin Allergy Anaphylaxis Verified 01/12/23 08:38 Active Medications: Current Medications Acetaminophen (Acetaminophen 325 Mg Tablet) 650 mg PO Q6H PRN PRN Reason: Pain, Mild (Pain Scale 1-3) Heparin Sodium (Porcine) (Heparin Sodium,Porcine 5,000 Unit/Ml Vial) 5,000 unit SUBCUT Q12H [facility] Last Admin: 01/14/23 03:51 Dose: Not Given Hydromorphone HCl (Hydromorphone Hcl 1 Mg/Ml Syringe) 1 mg IVPUSH Q4H PRN; Protocol PRN Reason: Pain, Severe (Pain Scale 7-10) Last Admin: 01/14/23 08:22 Dose: 1 mg Methylprednisolone Sodium Succinate (Methylprednisolone Sod Succ 125 Mg/2 Ml Vial) 60 mg IVPUSH DAILY [facility] Last Admin: 01/14/23 08:13 Dose: 60 mg Metronidazole (Metronidazole 500 Mg Tablet) 500 mg PO Q8H [facility] Last Admin: 01/14/23 01:59 Dose: 500 mg Ondansetron HCl (Ondansetron Hcl 4 Mg/2 Ml Vial) 4 mg IVPUSH Q8H PRN PRN Reason: Nausea and Vomiting Sodium Chloride (0.9 % Sodium Chloride Flush 3 Ml Syringe) 3 ml IVFLUSH QSHIFT [facility] Last Admin: 01/14/23 08:17 Dose: 3 ml Sodium Chloride (0.9 % Sodium Chloride Flush 3 Ml Syringe) 3 ml IVFLUSH QSHIFT [facility] Last Admin: 01/14/23 08:17 Dose: Not Given Home Medications Medication Instructions Recorded Confirmed Last Taken Type oxycodone 5 mg tablet 5 mg PO QID PRN PHARMACY 01/12/23 01/12/23 12/29/22 History zolpidem 5 mg tablet 5 mg PO BEDTIME PRN Insomnia 01/12/23 12/29/22 History Physical Exam Vital Signs: Vital Signs: Last Vital Signs Temp 98.2 F 01/14/23 07:57 Pulse 69 01/14/23 07:57 Resp 20 01/14/23 07:57 BP 114/68 01/14/23 07:57 Pulse Ox 100 01/14/23 07:57 O2 Del Method Room Air 01/14/23 07:57 BMI result Body Mass Index 15.7 EXAM: GENERAL: The patient is frail and malnourished appearing VITAL SIGNS:see workflow HEENT: Nonicteric sclerae, PERRLA, EOMI. Oropharynx clear. Moist mucous membranes. Conjunctivae appear pale. No thyroid mass. CHEST: Chest wall is nontender. HEART: Regular rate and rhythm without murmurs. LUNGS: Clear to auscultation bilaterally. ABDOMEN: Soft, positive bowel sounds, nontender, no organomegaly.no flank tenderness--stoma looks normal and healthy, normal appearing output SKIN: No rash, no excessive bruising, petechiae, or purpura. NEUROLOGIC: Cranial nerves II-XII intact without motor/sensory deficit. Psych: Appearance: grossly normal Results Labs 01/13/23 09:36 01/13/23 09:36 Labs: Short CBC 01/13/23 Range/Units 09:36 WBC 9.4 (4.8-10.8) X10*3/uL Hgb 8.9 L (12.0-16.0) g/dl Hct 30.9 L (37.0-47.0) % Plt Count 379 (160-400) X10*3/uL BMP 01/13/23 09:36 Sodium 140 Potassium 4.0 Chloride 111 H Carbon Dioxide 23 BUN 6 L Creatinine 0.55 Calcium 9.7 Urine 01/13/23 Range/Units 13:04 Urine Color Yellow Urine Appearance Clear Urine pH 6.0 (5.0-9.0) Ur Specific [place] 1.025 (1.005-1.025) Urine Protein Trace (Neg-Trace) mg/dL Urine Glucose (UA) Negative (Negative) mg/dL Imaging CT scan - abdomen: Attestation: I personally reviewed and interpreted this imaging study as follows: (thickened bowel, fecal loading, bulky pancreas ) Assessment and Plan (1) Exacerbation of Crohn's disease: Qualifiers: Digestive disease complication type: without complication Qualified Code(s): K50.90 - Crohn's disease, unspecified, without complications Status: Acute (2) Malnutrition: Qualifiers: Malnutrition type: protein-calorie malnutrition Protein-calorie malnutrition severity: moderate Qualified Code(s): E44.0 - Moderate protein-calorie malnutrition Status: Acute (3) Microcytic anemia: Status: Acute Plan 1/ Crohns disease -may have exacerbation due to combination of C diff and untreated IBD 2/ Anemia, maybe related to anemia of chronic disease, active crohns and malnutrition, social issues 3/ Fecal loading 4/ Bulky pancreas, 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 check TB spot, Hep b,C and HIV Time Spent With Patient Time: Total time managing care of this patient today ____ minutes. Procedures Date of Service Date of Service: 01/14/23
--- NOTE | 2023-01-14 09:23 | P.PNIM_ITS ---
Subjective Subjective Date of Service: 01/14/23 Review of Systems Follow up crohns flare still with some abd pain and diarrhea no nausea and vomiting Physical Exam 2 Vital Signs: Vital Signs: Last Vital Signs Temp 98.2 F 01/14/23 07:57 Pulse 69 01/14/23 07:57 Resp 20 01/14/23 07:57 BP 114/68 01/14/23 07:57 Pulse Ox 100 01/14/23 07:57 O2 Del Method Room Air 01/14/23 07:57 BMI result Body Mass Index 15.7 Appearing in no acute distress lung sounds are clear to auscultation heart regular rate rhythm, clear S1, S2 positive bowel sounds, abdomen is soft, RUQ tenderness neuro patient is alert x3, no focal deficits Objective Data Active Medications Acetaminophen (Acetaminophen 325 Mg Tablet) 650 mg PO Q6H PRN PRN Reason: Pain, Mild (Pain Scale 1-3) Heparin Sodium (Porcine) (Heparin Sodium,Porcine 5,000 Unit/Ml Vial) 5,000 unit SUBCUT Q12H [facility] Last Admin: 01/14/23 03:51 Dose: Not Given Documented By: CHARLENE Non-Admin Reason: Patient Refused Hydromorphone HCl (Hydromorphone Hcl 1 Mg/Ml Syringe) 1 mg IVPUSH Q4H PRN; Protocol PRN Reason: Pain, Severe (Pain Scale 7-10) Last Admin: 01/14/23 08:22 Dose: 1 mg Documented By: SANDY Methylprednisolone Sodium Succinate (Methylprednisolone Sod Succ 125 Mg/2 Ml Vial) 60 mg IVPUSH DAILY [facility] Last Admin: 01/14/23 08:13 Dose: 60 mg Documented By: SANDY Metronidazole (Metronidazole 500 Mg Tablet) 500 mg PO Q8H [facility] Last Admin: 01/14/23 01:59 Dose: 500 mg Documented By: CHARLENE Ondansetron HCl (Ondansetron Hcl 4 Mg/2 Ml Vial) 4 mg IVPUSH Q8H PRN PRN Reason: Nausea and Vomiting Sodium Chloride (0.9 % Sodium Chloride Flush 3 Ml Syringe) 3 ml IVFLUSH [facility] Last Admin: 01/14/23 08:17 Dose: 3 ml Documented By: SANDY Sodium Chloride (0.9 % Sodium Chloride Flush 3 Ml Syringe) 3 ml IVFLUSH QSCTFT [facility] Last Admin: 01/14/23 08:17 Dose: Not Given Documented By: SANDY Non-Admin Reason: Previously Administered Labs 01/13/23 09:36 01/13/23 09:36 Labs: Laboratory Results - last 24 hr 01/13/23 01/13/23 01/13/23 04:50 09:36 13:00 MCV 66.0 L MCH 19.0 L MCHC 28.8 L RDW 25.1 H Plt Count 379 MPV Not Reportable Immature Gran % (Auto) 0.2 Neut % (Auto) 57.3 Lymph % (Auto) 35.2 [place] % (Auto) 6.9 Eos % (Auto) 0.1 Baso % (Auto) 0.3 Lymph # (Auto) 3.3 [place] # (Auto) 0.7 Eos # (Auto) 0.0 Baso # (Auto) 0.0 Abs Immat Gran (auto) 0.02 Absolute Neuts (auto) 5.4 Absolute Nucleated RBC 0.000 Nucleated RBC % (auto) 0.0 Anion Gap 10 L Estim Creat Clear Calc 87.0 Estimated GFR > 60 Random Glucose 83 Calcium 9.7 Urine Color Urine Appearance Urine pH Ur Specific [place] Urine Protein Urine Glucose (UA) Urine Ketones Urine Blood Urine Nitrite Ur Leukocyte Esterase Urine RBC Urine WBC Ur Squamous Epith Cells Urine Bacteria Hyaline Casts Stl C. cayetanensis PCR Not Detected Stool Rotavirus A PCR Not Detected Stl Adenov F 40/41 PCR Not Detected Stool Astrovirus (PCR) Not Detected Stool Campylobacter PCR Not Detected Stool Cryptosporidium PCR Not Detected Stl Sh Tox Pr E STEC PCR Not Detected Stool E coli O157 PCR Not applicable Stl Enterotoxigenic E PCR Not Detected Stool EPEC (PCR) Not Detected Stool EAEC (PCR) Not Detected Stl E. histolytica PCR Not Detected Stool Giardia Lamblia PCR Not Detected Stl P. shigelloides PCR Not Detected Stool Salmonella PCR Not Detected Stool Sapovirus (PCR) Not Detected Stl Shigella/EIEC PCR Not Detected St Y.enterocolitica PCR Not Detected Stool Vibrio (PCR) Not Detected Stl Vibrio cholerae PCR Not Detected Stl Norovirus GI/GII PCR Not Detected Urine Opiates Screen POSITIVE H Urine Fentanyl Screen POSITIVE H Ur Barbiturates Screen Not Detected Ur Phencyclidine Scrn Not Detected Ur Amphetamines Screen Not Detected U Benzodiazepines Scrn Not Detected Urine Cocaine Screen Not Detected U Marijuana (THC) Screen POSITIVE H 01/13/23 13:04 MCV MCH MCHC RDW Plt Count MPV Immature Gran % (Auto) Neut % (Auto) Lymph % (Auto) [place] % (Auto) Eos % (Auto) Baso % (Auto) Lymph # (Auto) [place] # (Auto) Eos # (Auto) Baso # (Auto) Abs Immat Gran (auto) Absolute Neuts (auto) Absolute Nucleated RBC Nucleated RBC % (auto) Anion Gap Estim Creat Clear Calc Estimated GFR Random Glucose Calcium Urine Color Yellow Urine Appearance Clear Urine pH 6.0 Ur Specific [place] 1.025 Urine Protein Trace Urine Glucose (UA) Negative Urine Ketones Negative Urine Blood Negative Urine Nitrite Negative Ur Leukocyte Esterase Trace H Urine RBC 0-2 Urine WBC 0-5 Ur Squamous Epith Cells 6-10 Urine Bacteria None Seen Hyaline Casts 0-2 Stl C. cayetanensis PCR Stool Rotavirus A PCR Stl Adenov F 40/41 PCR Stool Astrovirus (PCR) Stool Campylobacter PCR Stool Cryptosporidium PCR Stl Sh Tox Pr E STEC PCR Stool E coli O157 PCR Stl Enterotoxigenic E PCR Stool EPEC (PCR) Stool EAEC (PCR) Stl E. histolytica PCR Stool Giardia Lamblia PCR Stl P. shigelloides PCR Stool Salmonella PCR Stool Sapovirus (PCR) Stl Shigella/EIEC PCR St Y.enterocolitica PCR Stool Vibrio (PCR) Stl Vibrio cholerae PCR Stl Norovirus GI/GII PCR Urine Opiates Screen Urine Fentanyl Screen Ur Barbiturates Screen Ur Phencyclidine Scrn Ur Amphetamines Screen U Benzodiazepines Scrn Urine Cocaine Screen U Marijuana (THC) Screen Assessment and Plan (1) Exacerbation of Crohn's disease: Status: Acute Plan 37-year-old woman admitted with acute on chronic abdominal pain likely secondary to Crohn's flare Acute on chronic Crohn's flare pain mostly to RUQ ABD pelvic CT showing some sequelae of possible pancreatitis previously on Cimzia, but not for 3 months, will have to be started outpatient stool studies neg GI consultation>Switch Solu-Medrol to prednisone 40 mg daily, 4 week taper, treatment for constipation patient insisting on eating solid food, reg diet started Pain management Severe constipation Noted on CT scan MiraLax b.i.d. and senna side b.i.d. CDIFF allergy to vancomycin flagyl 500mg TID for 10 days Microcytic anemia No signs of acute blood loss Monitor H&H DVT prophylaxis with heparin Attending Dr. Sinha Full code Continue hospitalization for treatment of acute on chronic Crohn's flare requiring pain management with IV narcotics and IV steroids Time Spent With Patient Time: Total time managing care of this patient today ____ minutes. Quality Stroke Does the patient have a stroke diagnosis?: No VTE Prior VTE?: No VTE Risk Level:: Medical - moderate - high VTE Device Contraindication: Treatment Not Indicated VTE Drug Contraindication: N/A - Med Ordered
[2023-01-14 12:00] VITALS: BP 130/75; PULSE 53; RESP 16; TEMP 36.9; O2SAT 98
[2023-01-14 15:42] VITALS: BP 123/75; PULSE 53; RESP 22; TEMP 36.7; O2SAT 100
[2023-01-14 19:59] VITALS: BP 140/86; PULSE 56; RESP 53; TEMP 36.8; O2SAT 100
[2023-01-14 23:21] VITALS: BP 132/77; PULSE 45; RESP 18; TEMP 36.6; O2SAT 99
[2023-01-15] MEDS: HYDROmorphone HCl 1 MG/ML SYRINGE IVPUSH ×6 (00:43→19:55)
[2023-01-15] MEDS: metroNIDAZOLE 500 MG TABLET PO ×2 (00:43→09:47)
[2023-01-15 04:00] VITALS: PULSE 47; RESP 20; TEMP 36.1; O2SAT 100
[2023-01-15 07:18] VITALS: BP 121/81; PULSE 51; RESP 17; TEMP 36.6; O2SAT 100
[2023-01-15] MEDS: predniSONE 20 MG TABLET 40 MG PO (08:48)
[2023-01-15] MEDS: 0.9 % Sodium Chloride Flush 3 ML SYRINGE IVFLUSH ×3 (08:49→19:56)
[2023-01-15 08:50] LABS: Hematocrit 32.1 % (37.0-47.0); Hemoglobin 9.3 g/dl (12.0-16.0); Mean Corpuscular Hemoglobin 18.9 pg (27.0-33.0); Mean Corpuscular Volume 65.1 fL (80.0-98.0); Platelet Count 337 X10*3/uL (160-400); Red Blood Count 4.93 X10*6/uL (4.20-5.50); Red Cell Distribution Width 25.2 % (11.0-16.0); White Blood Count 7.2 X10*3/uL (4.8-10.8)
[2023-01-15 09:17] LABS: Alanine Aminotransferase 9 U/L (0-31); Albumin Level 3.6 g/dL (3.5-5.0); Alkaline Phosphatase 54 U/L (39-117); Anion Gap 11 (12-20); Aspartate Amino Transferase 14 U/L (5-31); Bilirubin Direct 0.1 mg/dL (0.0-0.5); Bilirubin Total 0.3 mg/dL (0.0-1.0); Blood Urea Nitrogen 9 mg/dL (9-16); Calcium 9.1 mg/dL (8.4-10.2); Carbon Dioxide 23 mmol/L (22-29); Chloride 110 mmol/L (96-108); Creatinine Clr Calc Pharmacy 82.5; Estimated Glomerular Filt Rate > 60; Glucose Random 78 mg/dL (60-115); Iron 14 mcg/dL (30-160); Magnesium 1.8 mg/dL (1.6-2.6); Percent Iron Saturation 4 % (15-50); Potassium 3.4 mmol/L (3.3-5.1); Sodium 141 mmol/L (135-145); Total Iron Binding Capacity 342 mcg/dL (228-428); Total Protein 7.1 g/dL (6.5-8.0); Unsaturated Iron Binding 328 ug/dL
[2023-01-15 09:31] LABS: Ferritin 9 ng/mL (10-122)
[2023-01-15 09:43] LABS: Folate 10.5 ng/mL (> or = 4.0); Vitamin B12 413 pg/mL (200-900)
[2023-01-15 10:23] LABS: HBS Num1 98.84 mIU/mL (0-7.99); HBc Num1 0.12 S/CO (0.00-0.79); HBsAGNum1 0.35 S/CO (0.00-0.99); HIV AB/AG Nonreactive (Nonreactive); HIV Num 1 0.06 S/CO (0.00-0.99); Hepatitis B Core Antibody Nonreactive (Nonreactive); Hepatitis B Surface Antigen Negative (Negative); ~HepC Num1 0.11 S/CO (0.00-0.79); ~Hepatitis B Surface Antibody REACTIVE (Nonreactive); ~Hepatitis C Antibody Nonreactive (Nonreactive)
--- NOTE | 2023-01-15 10:34 | HO.PM.IMPN ---
Subjective Subjective Date of Service: 01/15/23 Interval History: still with high output, nausea Physical Exam Vital Signs: Vital Signs: Last Vital Signs Temp 97.9 F 01/15/23 07:18 Pulse 51 01/15/23 07:18 Resp 17 01/15/23 07:18 BP 121/81 01/15/23 07:18 Pulse Ox 100 01/15/23 07:18 O2 Del Method Room Air 01/15/23 07:18 BMI result Body Mass Index 15.7 Appearing in no acute distress lung sounds are clear to auscultation heart regular rate rhythm, clear S1, S2 positive bowel sounds, abdomen is soft, RUQ tenderness neuro patient is alert x3, no focal deficits Objective Data Active Medications Acetaminophen (Acetaminophen 325 Mg Tablet) 650 mg PO Q6H PRN PRN Reason: Pain, Mild (Pain Scale 1-3) Enoxaparin Sodium (Enoxaparin Sodium 40 Mg/0.4 Ml Syringe) 40 mg SUBCUT Q24H [facility] Last Admin: 01/15/23 08:47 Dose: Not Given Documented By: MARCUS Non-Admin Reason: Patient Refused Hydromorphone HCl (Hydromorphone Hcl 1 Mg/Ml Syringe) 1 mg IVPUSH Q4H PRN; Protocol PRN Reason: Pain, Severe (Pain Scale 7-10) Last Admin: 01/15/23 08:48 Dose: 1 mg Documented By: MARCUS Lidocaine (Lidocaine 5 % Ointment 35 Gm) 1 appl TOPICAL Q6H PRN; Protocol PRN Reason: Pain, Mild (Pain Scale 1-3) Metronidazole (Metronidazole 500 Mg Tablet) 500 mg PO Q8H [facility] Last Admin: 01/15/23 09:47 Dose: 500 mg Documented By: SANDY Ondansetron HCl (Ondansetron Hcl 4 Mg/2 Ml Vial) 4 mg IVPUSH Q8H PRN PRN Reason: Nausea and Vomiting Polyethylene Glycol (Polyethylene Glycol 3350 17 Gm Powd.Pack) 17 gm PO BID [facility] Last Admin: 01/15/23 08:48 Dose: Not Given Documented By: MARCUS Non-Admin Reason: Patient Refused Prednisone (Prednisone 20 Mg Tablet) 40 mg PO DAILY [facility] Last Admin: 01/15/23 08:48 Dose: 40 mg Documented By: HO.GINLEYM Senna (Sennosides 8.6 Mg Tablet) 17.2 mg PO BID [facility] Last Admin: 01/15/23 08:48 Dose: Not Given Documented By: MARCUS Non-Admin Reason: Patient Refused Sodium Chloride (0.9 % Sodium Chloride Flush 3 Ml Syringe) 3 ml IVFLUSH QSHIFT [facility] Last Admin: 01/15/23 08:49 Dose: 3 ml Documented By: MARCUS Sodium Chloride (0.9 % Sodium Chloride Flush 3 Ml Syringe) 3 ml IVFLUSH [facility] Last Admin: 01/15/23 08:49 Dose: Not Given Documented By: MARCUS Non-Admin Reason: duplicate order Labs 01/15/23 08:24 01/15/23 08:24 Labs: Laboratory Results - last 24 hr 01/15/23 08:24 MCV 65.1 L MCH 18.9 L MCHC 29.0 L RDW 25.2 H Plt Count 337 MPV Not Reportable Absolute Nucleated RBC 0.000 Nucleated RBC % (auto) 0.0 Anion Gap 11 L Estim Creat Clear Calc 82.5 Estimated GFR > 60 Random Glucose 78 Calcium 9.1 D Magnesium 1.8 Iron 14 L TIBC 342 % Saturation 4 L Unsat Iron Binding 328 Ferritin 9 L Total Bilirubin 0.3 Direct Bilirubin 0.1 AST 14 ALT 9 Alkaline Phosphatase 54 Total Protein 7.1 Albumin 3.6 Vitamin B12 413 Folate 10.5 Assessment and Plan (1) Exacerbation of Crohn's disease: Status: Acute Plan 37F [facility] crohns disease s/p colectomy, complicated by pyoderma gangrenosum, presented with abd pain, weight loss, high output ileostomy Acute on chronic Crohn's flare ABD pelvic CT showing some sequelae of possible pancreatitis previously on Cimzia, but not for 3 months GI appreciated, prednisone 40 mg daily, 4 week taper, treatment for constipation, screen for immunosuppressant contraindications, check vitamin deficiencies Pain management moderate protein calorie 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 Quality Stroke Does the patient have a stroke diagnosis?: No VTE Prior VTE?: No VTE Risk Level:: Medical - moderate - high VTE Device Contraindication: Treatment Not Indicated VTE Drug Contraindication: N/A - Med Ordered
--- NOTE | 2023-01-15 11:12 | MHC.CLN ---
F/U PO INTAKE 25/75% [id number] DIET RX: REGULAR-MAY CONSIDER BLAND DIET R/T ACUTE ILLNESS PT RECEIVING ENSURE MAX TO INCREASE PO PROVIDES 300KCALS, 60G PROTEIN MONITOR PO INTAKE CLOSELY AND ENCOURAGE SUPPLEMENT
[2023-01-15] MEDS: Iron Sucrose Complex 200 MG in 0.9 % Sodium Chloride 100 ML 440 MG IV (11:55)
[2023-01-15 12:00] VITALS: BP 117/81; PULSE 60; RESP 18; TEMP 36.9; O2SAT 99
[2023-01-15 14:59] VITALS: BP 137/60; PULSE 60; RESP 20; TEMP 36.7; O2SAT 98
--- NOTE | 2023-01-15 16:05 | MHC.CM.PN ---
EMR reviewed and per MD rounds, pt is not medically cleared for D/C today due to continued abdominal pain and poor PO tolerance. CM will continue to follow.
[2023-01-15 19:06] VITALS: BP 114/73; PULSE 66; RESP 20; TEMP 37.1; O2SAT 98
[2023-01-15 21:26] VITALS: BP 136/71; PULSE 55; RESP 16; TEMP 36.2; O2SAT 100
[2023-01-16] VITALS: BP 115/63; PULSE 45; RESP 16; TEMP 36; O2SAT 99
[2023-01-16] MEDS: HYDROmorphone HCl 1 MG/ML SYRINGE IVPUSH ×5 (00:07→23:53)
[2023-01-16 03:20] VITALS: BP 110/67; PULSE 53; RESP 16; TEMP 35.8; O2SAT 99
[2023-01-16 07:46] VITALS: BP 122/72; PULSE 51; RESP 12; TEMP 36.8; O2SAT 100
[2023-01-16] MEDS: HYDROmorphone HCl 1 MG/ML SYRINGE 0.5 MG IVPUSH ×2 (08:21→12:33)
[2023-01-16] MEDS: 0.9 % Sodium Chloride Flush 3 ML SYRINGE IVFLUSH (08:22)
[2023-01-16] MEDS: predniSONE 20 MG TABLET 40 MG PO (08:22)
[2023-01-16 10:00] LABS: Hematocrit 28.5 % (37.0-47.0); Hemoglobin 8.3 g/dl (12.0-16.0); Mean Corpuscular HGB Conc 29.1 g/dl (31.0-35.0); Mean Corpuscular Hemoglobin 18.8 pg (27.0-33.0); PLT CLUMP 1; Red Blood Count 4.42 X10*6/uL (4.20-5.50)
[2023-01-16 10:01] LABS: Mean Corpuscular Volume 64.5 fL (80.0-98.0); White Blood Count 7.9 X10*3/uL (4.8-10.8)
[2023-01-16 10:10] LABS: Anion Gap 13 (12-20); Blood Urea Nitrogen 6 mg/dL (9-16); Calcium 8.6 mg/dL (8.4-10.2); Carbon Dioxide 22 mmol/L (22-29); Chloride 110 mmol/L (96-108); Creatinine Clr Calc Pharmacy 81.1; Estimated Glomerular Filt Rate > 60; Glucose Fasting 100 mg/dL (60-99); Potassium 3.3 mmol/L (3.3-5.1); Sodium 142 mmol/L (135-145)
[2023-01-16 10:20] LABS: Platelet Count 320 X10*3/uL (160-400)
[2023-01-16 11:51] VITALS: BP 117/58; PULSE 62; RESP 16; TEMP 36.5; O2SAT 100
[2023-01-16] MEDS: oxyCODONE HCl Immed Release 5 MG TABLET PO (12:49)
--- NOTE | 2023-01-16 14:13 | P.PNIM_ITS ---
Subjective Subjective Date of Service: 01/16/23 Interval History: complaining of pain still high output from ostomy tolerating diet Review of Systems Review of Systems: Yes all other systems are reviewed and are negative Physical Exam 2 Vital Signs: Vital Signs: Last Vital Signs Temp 97.7 F 01/16/23 11:51 Pulse 62 01/16/23 11:51 Resp 16 01/16/23 11:51 BP 117/58 L 01/16/23 11:51 Pulse Ox 100 01/16/23 11:51 O2 Del Method Room Air 01/16/23 11:51 BMI result Body Mass Index 15.7 Const: Other: Constitutional : Awake, interactive, not in distress Neck : Normal inspection, Supple Cardiovascular : RRR, no JVP, no lower extremity edema Respiratory : good bilateral air entry, no crackles, wheezes or rhonchi Gastrointestinal: soft, lax, Normal bowel sounds, generalized tenderness more in LLQ, semi-fluid output in her ostomy bag Skin : Warm, Dry Neurological : Alert & oriented x3, No focal deficit Objective Data Active Medications Acetaminophen (Acetaminophen 325 Mg Tablet) 650 mg PO Q6H PRN PRN Reason: Pain, Mild (Pain Scale 1-3) Enoxaparin Sodium (Enoxaparin Sodium 40 Mg/0.4 Ml Syringe) 40 mg SUBCUT Q24H [facility] Last Admin: 01/16/23 08:22 Dose: Not Given Documented By: YOSHI Non-Admin Reason: Patient Refused Hydromorphone HCl (Hydromorphone Hcl 1 Mg/Ml Syringe) 0.5 mg IVPUSH Q4H PRN; Protocol PRN Reason: Pain, Severe (Pain Scale 7-10) Last Admin: 01/16/23 12:33 Dose: 0.5 mg Documented By: YOSHI Lidocaine (Lidocaine 5 % Ointment 35 Gm) 1 appl TOPICAL Q6H PRN; Protocol PRN Reason: Pain, Mild (Pain Scale 1-3) Ondansetron HCl (Ondansetron Hcl 4 Mg/2 Ml Vial) 4 mg IVPUSH Q8H PRN PRN Reason: Nausea and Vomiting Oxycodone HCl (Oxycodone Hcl Immed Release 5 Mg Tablet) 5 mg PO Q6H PRN PRN Reason: Pain, Severe (Pain Scale 7-10) Last Admin: 01/16/23 12:49 Dose: 5 mg Documented By: YOSHI Prednisone (Prednisone 20 Mg Tablet) 40 mg PO DAILY [facility] Last Admin: 01/16/23 08:22 Dose: 40 mg Documented By: YOSHI Sodium Chloride (0.9 % Sodium Chloride Flush 3 Ml Syringe) 3 ml IVFLUSH QSHIFT [facility] Last Admin: 01/16/23 08:22 Dose: 3 ml Documented By: YOSHI Sodium Chloride (0.9 % Sodium Chloride Flush 3 Ml Syringe) 3 ml IVFLUSH QSHIFT [facility] Last Admin: 01/16/23 08:27 Dose: Not Given Documented By: YOSHI Non-Admin Reason: Duplicate Order Labs 01/16/23 09:37 01/16/23 09:37 Labs: Laboratory Results - last 24 hr 01/16/23 09:37 MCV 64.5 L MCH 18.8 L MCHC 29.1 L RDW 25.0 H Plt Count 320 MPV Not Reportable Absolute Nucleated RBC 0.000 Nucleated RBC % (auto) 0.0 Anion Gap 13 Estim Creat Clear Calc 81.1 Estimated GFR > 60 Fasting Glucose 100 H Calcium 8.6 Assessment and Plan (1) Exacerbation of Crohn's disease: Status: Acute (2) Malnutrition: Status: Acute (3) CHINMAY (iron deficiency anemia): Status: Acute Plan 37F PMH crohns disease s/p colectomy, complicated by pyoderma gangrenosum, presented with abd pain, weight loss, high output ileostomy Acute on chronic Crohn's flare ABD pelvic CT showing some sequelae of possible pancreatitis previously on Cimzia, but not for 3 months GI appreciated, prednisone 40 mg daily, 4 week taper, treatment for constipation, screen for immunosuppressant contraindications, check vitamin deficiencies IVF today encourage PO intake Pain management moderate 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 Quality Stroke Does the patient have a stroke diagnosis?: No VTE Prior VTE?: No VTE Risk Level:: Medical - moderate - high VTE Device Contraindication: Treatment Not Indicated VTE Drug Contraindication: N/A - Med Ordered
[2023-01-16] MEDS: Dextrose 5 % and Lactated Ring 1,000 ML 100 ML IVCONT ×2 (15:34→23:58)
[2023-01-16 15:48] VITALS: BP 109/76; PULSE 60; RESP 18; TEMP 36.6; O2SAT 99
[2023-01-16 19:26] VITALS: BP 128/70; PULSE 56; RESP 14; TEMP 36.2; O2SAT 100
[2023-01-17] VITALS: BP 128/58; PULSE 62; RESP 16; TEMP 36.1; O2SAT 100
[2023-01-17] MEDS: HYDROmorphone HCl 1 MG/ML SYRINGE IVPUSH ×2 (03:57→08:08)
[2023-01-17 04:00] VITALS: BP 128/58; PULSE 62; RESP 16; TEMP 36.1; O2SAT 100
[2023-01-17 07:50] VITALS: BP 119/72; PULSE 59; RESP 16; TEMP 36.6; O2SAT 100
[2023-01-17] MEDS: 0.9 % Sodium Chloride Flush 3 ML SYRINGE IVFLUSH ×4 (08:07→23:58)
[2023-01-17] MEDS: predniSONE 20 MG TABLET 40 MG PO (08:07)
[2023-01-17 11:21] VITALS: BP 136/71; PULSE 86; RESP 16; TEMP 36.8; O2SAT 100
[2023-01-17] MEDS: oxyCODONE HCl Immed Release 5 MG TABLET PO ×2 (11:37→18:15)
[2023-01-17] MEDS: HYDROmorphone HCl 1 MG/ML SYRINGE 0.5 MG IVPUSH ×3 (11:38→19:57)
[2023-01-17 11:43] LABS: Hematocrit 35.1 % (37.0-47.0); Mean Corpuscular HGB Conc 28.5 g/dl (31.0-35.0); Mean Corpuscular Hemoglobin 18.7 pg (27.0-33.0); Mean Corpuscular Volume 65.7 fL (80.0-98.0); Platelet Count 369 X10*3/uL (160-400); Red Blood Count 5.34 X10*6/uL (4.20-5.50); White Blood Count 7.5 X10*3/uL (4.8-10.8)
[2023-01-17 11:51] LABS: Anion Gap 12 (12-20); Blood Urea Nitrogen 4 mg/dL (9-16); Calcium 9.2 mg/dL (8.4-10.2); Carbon Dioxide 25 mmol/L (22-29); Chloride 107 mmol/L (96-108); Estimated Glomerular Filt Rate > 60; Glucose Random 91 mg/dL (60-115); Potassium 3.9 mmol/L (3.3-5.1); Sodium 140 mmol/L (135-145)
--- NOTE | 2023-01-17 12:42 | MHC.CM.PN ---
Per MD rounds no discharge today. Patient continues with abdominal pain. DP to [facility]. C assist with transport at discharge.
--- NOTE | 2023-01-17 13:06 | HO.PM.IMPN ---
Subjective Subjective Date of Service: 01/17/23 Interval History: seen and evaluated complaining of pain still high output from ostomy tolerating diet well Review of Systems Review of Systems: Yes all other systems are reviewed and are negative Physical Exam Vital Signs: Vital Signs: Last Vital Signs Temp 98.2 F 01/17/23 11:21 Pulse 86 01/17/23 11:21 Resp 16 01/17/23 11:21 BP 136/71 01/17/23 11:21 Pulse Ox 100 01/17/23 11:21 O2 Del Method Room Air 01/17/23 11:21 BMI result Body Mass Index 15.7 Const: Other: Constitutional : Awake, interactive, not in distress Neck : Normal inspection, Supple Cardiovascular : RRR, no JVP, no lower extremity edema Respiratory : good bilateral air entry, no crackles, wheezes or rhonchi Gastrointestinal: soft, lax, Normal bowel sounds, generalized tenderness more in LLQ, semi-fluid output in her ostomy bag Skin : Warm, Dry Neurological : Alert & oriented x3, No focal deficit Objective Data Active Medications Acetaminophen (Acetaminophen 325 Mg Tablet) 650 mg PO Q6H PRN PRN Reason: Pain, Mild (Pain Scale 1-3) Enoxaparin Sodium (Enoxaparin Sodium 40 Mg/0.4 Ml Syringe) 40 mg SUBCUT Q24H [facility] Last Admin: 01/17/23 08:07 Dose: Not Given Documented By: YOSHI Non-Admin Reason: Patient Refused Hydromorphone HCl (Hydromorphone Hcl 1 Mg/Ml Syringe) 0.5 mg IVPUSH Q4H PRN; Protocol PRN Reason: Pain, Severe (Pain Scale 7-10) Last Admin: 01/17/23 11:38 Dose: 0.5 mg Documented By: YOSHI Lidocaine (Lidocaine 5 % Ointment 35 Gm) 1 appl TOPICAL Q6H PRN; Protocol PRN Reason: Pain, Mild (Pain Scale 1-3) Ondansetron HCl (Ondansetron Hcl 4 Mg/2 Ml Vial) 4 mg IVPUSH Q8H PRN PRN Reason: Nausea and Vomiting Oxycodone HCl (Oxycodone Hcl Immed Release 5 Mg Tablet) 5 mg PO Q6H PRN PRN Reason: Pain, Severe (Pain Scale 7-10) Last Admin: 01/17/23 11:37 Dose: 5 mg Documented By: YOSHI Prednisone (Prednisone 20 Mg Tablet) 40 mg PO DAILY [facility] Last Admin: 01/17/23 08:07 Dose: 40 mg Documented By: YOSHI Sodium Chloride (0.9 % Sodium Chloride Flush 3 Ml Syringe) 3 ml IVFLUSH QSHIFT [facility] Last Admin: 01/17/23 08:07 Dose: 3 ml Documented By: YOSHI Sodium Chloride (0.9 % Sodium Chloride Flush 3 Ml Syringe) [facility] Last Admin: 01/17/23 08:07 Dose: Not Given Documented By: YOSHI Non-Admin Reason: Duplicate Order Labs 01/17/23 11:22 01/17/23 11:22 Labs: Laboratory Results - last 24 hr 01/16/23 01/17/23 09:37 11:22 MCV 65.7 L MCH 18.7 L MCHC 28.5 L RDW 26.0 H Plt Count 369 MPV Not Reportable Absolute Nucleated RBC 0.000 Nucleated RBC % (auto) 0.0 Smear Path Review SEE NOTE Anion Gap 12 Estim Creat Clear Calc 76.0 Estimated GFR > 60 Random Glucose 91 Calcium 9.2 D Assessment and Plan (1) Exacerbation of Crohn's disease: Status: Acute (2) 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 Quality Stroke Does the patient have a stroke diagnosis?: No VTE Prior VTE?: No VTE Risk Level:: Medical - moderate - high VTE Device Contraindication: Treatment Not Indicated VTE Drug Contraindication: N/A - Med Ordered
--- NOTE | 2023-01-17 13:47 | MHC.CLN ---
F/U PO INTAKE 100% X 4 MEALS DIET RX: REGULAR-MAY CONSIDER BLAND DIET R/T ACUTE ILLNESS PT RECEIVING ENSURE MAX TO INCREASE PO PROVIDES 300KCALS, 60G PROTEIN MONITOR PO INTAKE CLOSELY AND ENCOURAGE SUPPLEMENT
[2023-01-17] MEDS: Mesalamine 250 MG CAPSULE.ER 500 MG PO ×2 (14:55→19:58)
[2023-01-17 15:35] VITALS: BP 103/65; PULSE 81; RESP 16; TEMP 36.7; O2SAT 100
[2023-01-17 17:32] LABS: TS Negative Control Passed; TS Panel A 0; TS Panel B 0; TS Positive Control Passed; TSpotTB Negative (Negative)
[2023-01-17 19:53] VITALS: BP 109/65; PULSE 68; RESP 18; TEMP 36.6; O2SAT 99
[2023-01-18] VITALS: BP 114/69; PULSE 69; RESP 18; TEMP 36.7; O2SAT 99
[2023-01-18] MEDS: HYDROmorphone HCl 1 MG/ML SYRINGE 0.5 MG IVPUSH ×4 (00:01→12:10)
[2023-01-18] MEDS: oxyCODONE HCl Immed Release 5 MG TABLET PO (01:42)
[2023-01-18 03:49] LABS: Zinc 52 mcg/dL (60-130)
[2023-01-18 03:58] VITALS: BP 123/95; PULSE 75; RESP 18; TEMP 36.4; O2SAT 100
[2023-01-18 07:34] VITALS: BP 117/67; PULSE 76; RESP 16; TEMP 36; O2SAT 100
[2023-01-18] MEDS: 0.9 % Sodium Chloride Flush 3 ML SYRINGE IVFLUSH (08:12)
[2023-01-18] MEDS: predniSONE 20 MG TABLET 40 MG PO (08:13)
[2023-01-18] MEDS: Mesalamine 250 MG CAPSULE.ER 500 MG PO (08:13)
--- NOTE | 2023-01-18 10:58 | PM.DS ---
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 She recently moved from [facility] and had been on Remicade at 1 point but most recently Cimzia. She does report that she has not taken it in the last 3 months. Her last surgery was in October where she was diagnosed with a bowel obstruction. Today she reports increased diffuse abdominal pain with at least 5-10 watery stools a day. She also reports chills, nausea and poor appetite with weight loss. She mostly has chronic abd pain. She is also currently homeless. No fever leukocytosis noted, labs within acceptable limits. Abdominal CT showing since possibly some sequela pancreatitis but has a normal lipase. Chest x-ray shows no consolidation or effusion. In the ER she was given a dose of Solu-Medrol, Dilaudid, Zofran and IV fluids. She will be admitted for further management and treatment of acute on chronic Crohn's flare Hospital course # Acute Crohn's flare up based on clinical presentaiton and Abd & pelvic CT findings. Treated with IV fluids, steroids and antibiotics at admission. Evaluated by GI who recommended prednisone 40 mg daily, 4 week taper. Started on Pentasa with improvement in her symptoms over the course of hospital stay. Antibiotics discontinued as she was found to be a CDiff colonizer. ostomy output decreased and became more formed by the time of discharge. Improved PO intake and Pain management with Oxycodone. # moderate protein calorie malnutrition due to malabsorption. started on Ensure and encourage to increase protein intake. # chronic iron deficiency anemia Improved to 10 w Iron supplement. To continue Ferrous sulphate on discharge. # Pyoderma gangrenosum evaluated by wound team who recommended local care and follow up as outpatient. Start Pentasa 500 mg three times a day Prednisone tapering dose over the next 4 weeks Oxycodone as needed for pain Follow up with Dr Stark as outpatient for further evaluation and treatment options Time Spent with Patient Time attestation: Total time managing care of this patient today ____ minutes. Discharge coordination time: Greater than 30 minutes Quality: Safe Use of Opioids Does Pt have an Active Cancer Diagnosis on the Problem List?: No Quality: Stroke Does the patient have a stroke diagnosis?: No Physical Exam Vital Signs: Vital Signs: Last Vital Signs Temp 96.8 F 01/18/23 07:34 Pulse 76 01/18/23 07:34 Resp 16 01/18/23 07:34 BP 117/67 01/18/23 07:34 Pulse Ox 100 01/18/23 07:34 O2 Del Method Room Air 01/18/23 07:34 BMI result Body Mass Index 15.7 Const: Other: Constitutional : Awake, interactive, not in distress Neck : Normal inspection, Supple Cardiovascular : RRR, no JVP, no lower extremity edema Respiratory : good bilateral air entry, no crackles, wheezes or rhonchi Gastrointestinal: soft, lax, Normal bowel sounds, mild generalized tenderness with no surgical signs, Formed stool in her ostomy bag Skin : Warm, Dry Neurological : Alert & oriented x3, No focal deficit DS: Data Data Completed and Pending Labs on day of discharge: Laboratory Results - last 24 hr 01/15/23 01/16/23 01/17/23 08:24 09:37 11:22 WBC 7.5 RBC 5.34 D Hgb 10.0 L D Hct 35.1 L D MCV 65.7 L MCH 18.7 L MCHC 28.5 L RDW 26.0 H Plt Count 369 MPV Not Reportable Absolute Nucleated RBC 0.000 Nucleated RBC % (auto) 0.0 Smear Path Review SEE NOTE Sodium 140 Potassium 3.9 Chloride 107 Carbon Dioxide 25 Anion Gap 12 BUN 4 L Creatinine 0.63 Estim Creat Clear Calc 76.0 Estimated GFR > 60 Random Glucose 91 Calcium 9.2 D Zinc 52 L TB Test (T-Spot) Com Negative TB Test Nil Control Passed TB Test Panel A 0 TB Test Panel B 0 TB Test Positive Cntrl Passed Imaging CT scan - abdomen: Radiologist's impression: ITS Impressions Chest X-Ray 01/12/23 10:13 IMPRESSION: Right-sided CT compatible Port-A-Cath tip terminates over the expected location of the superior cavoatrial junction. No pneumothorax. No acute pulmonary process. Abdomen/Pelvis CT 01/12/23 12:57 IMPRESSION: 1. Patient is status post total colectomy with right lower quadrant ileostomy. There is abnormal mucosal enhancement within the small bowel extending up to the ostomy site but I do not appreciate any evidence for upstream obstruction. Patient is likely status post total colectomy with no definitive residual: Able to be delineated on the study. There is free fluid and uterus in the deep pelvis which limits assessment of this area. 2. There is abnormal heterogeneous hypoattenuation between the head of the pancreas and adjacent duodenum. Sequela of groove pancreatitis could have this appearance and clinical correlation with amylase and lipase levels would be recommended. I do not appreciate any discrete peripancreatic fluid collection or pancreatic parenchymal calcifications. There is mild prominence to the pancreatic duct measuring up to 4 mm in maximal diameter. Unfortunately I do not have prior images to compare to. KUB X-Ray 01/17/23 19:35 IMPRESSION: 1. Total colectomy with right lower quadrant ileostomy. 2. Stable nonspecific prominence of some loops of small bowel in the lower abdomen and pelvis. 3. Unchanged gastric distention. Discharge Plan Discharge Anticipated Discharge Date/Time: 01/18/23 10:48 Patient Disposition: Home, Self-Care Discharge Diagnosis: Crohns disease exacerbation Referrals: Physician,None [Primary Care Provider] - 1 Week Discharge Medications: New Pentasa 250 mg Capsule, Extended Release 500 mg PO TID Qty: 90 1RF lidocaine 5 % Ointment 1 appl topical Q6H PRN (Reason: Pain, Mild (Pain Scale 1-3)) 7 Days Qty: 50 1RF Protocol: Apply to: Apply to: right lateral proximal leg ulcers prednisone 10 mg tablet See Taper PO DIRECTED Qty: 70 0RF Taper: Prednisone 40 mg daily for 7 Days and 0 Hour 30 mg daily for 7 Days and 0 Hour 20 mg daily for 7 Days and 0 Hour 10 mg daily for 7 Days and 0 Hour Rx Instructions: see taper instructions ferrous sulfate 324 mg (65 mg iron) tablet,delayed release (DR/EC) 324 mg PO DAILY Qty: 30 0RF Continued oxycodone 5 mg tablet 5 mg PO QID PRN (Reason: PHARMACY) Qty: 20 0RF zolpidem 5 mg tablet 5 mg PO BEDTIME PRN (Reason: Insomnia) Qty: 15 0RF Discharge Orders: Discharge Order (Routine); Ordered 01/18/23 Ordered By: Michelle Barraza Diet: Advance to usual diet Activity on Discharge: As tolerated Stand Alone Forms: Patient Portal Discharge page Care Plan Goals: Read below Health Concerns: Read below Plan of Treatment: Read below Assessment: Start Pentasa 500 mg three times a day Prednisone tapering dose over the next 4 weeks Oxycodone as needed for pain Follow up with Dr Stark as outpatient for further evaluation and treatment options Discharge Date/Time: 01/18/23 13:29
[2023-01-18 11:54] VITALS: BP 122/83; PULSE 85; RESP 16; TEMP 36.7; O2SAT 100
--- NOTE | 2023-01-18 13:47 | MHC.CM.PN ---
Addendum entered by Odilia Pruett 01/18/23 13:57: PT IS ALSO AWARE SHE CANNOT RECEIVE CARE AT THE WOUND CLINIC UNTIL SHE SECURES A PCP CM PROVIDED INFORMATION ON [facility] WALK IN/PCP SERVICES PT REPORTS A PLAN TO MAKE AN APPT WITH A NEW PCP ON FRIDAY AND THEN FOLLOW UP WITH WOUND CLINIC Original Note: PT TO DC TODAY, SHE IS UNWILLING TO LEAVE [place] SO CANNOT ACCESS AN INDIVIDUAL GROUP HOME SHE DOES HAVE THE RESOURCES PROVIDED ON ADMISSION PT DID NOT KNOW HER INSURANCE NUMBER TO USE AT THE PHARMACY, IT WAS PROVIDED TO HER SHE HAS ARRANGED HER OWN TRANSPORTATION
[2023-01-19 23:59] LABS: Calprotectin, Fecal 121 mcg/g
[2023-01-21 18:13] LABS: Vitamin B1 13 nmol/L (8-30)
== END 2023-01-18 13:29 | disposition home or self-care (01) | DRG 245 ==
LOC: HO.ED 16:08 → HO.EDOVER 16:29 → HO.IMC 19:48 → HO.S3 01-15 20:12
PROVIDERS: Internal Medicine; Nurse Practitioner Family; Admitting Provider Nurse Practitioner Acute Care; Emergency Provider Student in an Organized Health Care Education/Training Program; Visit Provider Student in an Organized Health Care Education/Training Program
DX: K50.90 Crohn's disease, unspecified, without complications (principal); E44.0 Moderate protein-calorie malnutrition; D63.8 Anemia in other chronic diseases classified elsewhere; D50.9 Iron deficiency anemia, unspecified; F17.210 Nicotine dependence, cigarettes, uncomplicated; Z59.02 Unsheltered homelessness; L88 Pyoderma gangrenosum; Z22.1 Carrier of other intestinal infectious diseases; Z68.1 Body mass index [BMI] 19.9 or less, adult; Z71.6 Tobacco abuse counseling; Z93.3 Colostomy status; Z91.148 Patient's other noncompliance with medication regimen for other reason; Z79.899 Other long term (current) drug therapy
CPT/HCPCS: 36415; 71045; 74018; 74177; 80048; 80053; 80076; 80307; 81001; 82150; 82607; 82728; 82746; 83540; 83605; 83690; 83735; 83993; 84425; 84630; 84702; 85025; 85027; 85652; 86140; 86481; 86704; 86706; 86803; 87324; 87340; 87389; 87493; 87507; 99285; J1170; J1643; J1756; J2405; J2930; Q9967

== ENCOUNTER → 2023-01-12 16:24 | Outpatient (BNV) | payer MEDICAID, SELFPAY | PROVIDERS: Admitting Provider Nurse Practitioner Acute Care; Emergency Provider Student in an Organized Health Care Education/Training Program; Visit Provider Internal Medicine Gastroenterology | DX: K50.90 Crohn's disease, unspecified, without complications (principal); E44.0 Moderate protein-calorie malnutrition; D50.9 Iron deficiency anemia, unspecified | CPT/HCPCS: 99222 ==

== ENCOUNTER → 2023-01-12 16:24 | Outpatient (BNV) | payer MEDICAID, OTHER, SELFPAY | PROVIDERS: Admitting Provider Nurse Practitioner Acute Care; Emergency Provider Student in an Organized Health Care Education/Training Program; Visit Provider Nurse Practitioner Acute Care | DX: K50.90 Crohn's disease, unspecified, without complications (principal) | CPT/HCPCS: 99223; 99232; 99233; 99239 ==

== ENCOUNTER 2023-01-21 19:57 | Emergency (ER) | payer OTHER, SELFPAY ==
[2023-01-21 20:19] VITALS: BP 100/73; PULSE 113; RESP 18; TEMP 36.9; O2SAT 99; BMI 16.4
--- NOTE | 2023-01-21 20:20 | ED.GENADULT ---
HPI - General Adult General Chief complaint: Abdominal Pain Stated complaint: Chron's disease, abdominal pain Time Seen by Provider: 01/21/23 22:31 Source: patient Mode of arrival: ambulatory Limitations: no limitations History of Present Illness HPI narrative: Patient is 37 years old just discharge from the hospital on 01/18 for Crohn's disease it is post ileostomy, C diff positive on Flagyl comes here as she need for pain medication having nausea and vomiting and having loose bowels with blood in the ileostomy bag patient seems to be very anxious asking for the pain medication but not vomiting in the ER taking p.o. fluids patient is supposed to follow-up with bilingual student tutor as outpatient Related Data Previous Rx's Medication Instructions Recorded ferrous sulfate 324 mg (65 mg 324 mg PO DAILY #30 tabs 01/18/23 iron) tablet,delayed release lidocaine 5 % topical ointment 1 appl topical Q6H PRN Pain, Mild 01/18/23 (Pain Scale 1-3) 7 days #50 grams mesalamine 250 mg capsule,extended 500 mg (2 x 250 mg) PO TID #90 caps 01/18/23 release (Pentasa) oxycodone 5 mg tablet 5 mg PO QID PRN PHARMACY #20 tabs 01/18/23 prednisone 10 mg tablet See Taper PO DIRECTED #70 tabs 01/18/23 zolpidem 5 mg tablet 5 mg PO BEDTIME PRN Insomnia #15 01/18/23 tabs hydromorphone 2 mg tablet 2 mg PO Q6H PRN pain #14 tabs 01/21/23 (Dilaudid) ondansetron 4 mg disintegrating 4 mg PO Q6-8H PRN nausea and 01/21/23 tablet vomiting #14 tabs Allergies Allergy/AdvReac Type Severity Reaction Status Date / Time vancomycin Allergy Anaphylaxis Verified 01/12/23 08:38 Review of Systems Review of Systems: Yes all other systems are reviewed and are negative PMFSH Past Medical History Medical History Colostomy in place History of small bowel obstruction Crohn's disease Social History Social History Household Members: None Housing: Homeless Do you presently have visiting nurse or other home services: No Alcohol intake: never Patient Tobacco Use Status: Current everyday Tobacco user Cigarettes Per Day: 7 Smoked in Last 30 Days: Yes Use of substances other than those prescribed or required for medical reasons: Yes Substance Use Type: Marijuana Advance Directives: No Advance Directives Information Provided: No Patient : No service: No Physical Exam ED Vital Signs: Vital Signs - 24 hr 01/21/23 20:19 01/21/23 22:17 Temperature 98.5 F 98.2 F Pulse Rate 113 H 96 Respiratory Rate 18 18 Blood Pressure 100/73 101/62 Pulse Oximetry 99 99 Oxygen Delivery Method Room Air Room Air BMI result Body Mass Index 16.4 Appearance: Alert. Oriented X3. No acute distress. Eyes: PERRLA, No Nystagmus ENT: Pharynx normal. Oral Mucosa moist Neck: Normal inspection. Neck supple. CVS: Normal heart rate and rhythm. Pulses normal. Respiratory: No respiratory distress. Equal air entry bilateral, no wheezing/rales/rhonchi Abdomen: Soft and nontender. Bowel sounds are present, no mass palpable, no CVA tenderness ileostomy bag in place Skin: Skin warm and dry. Normal skin color. Normal skin turgor. Extremities: No lower extremity edema. No calf tenderness Neuro: Oriented X 3. Course Course Course Narrative: This is an RME: Additional HPI, ROS, PE not included below will be deferred to primary provider. 37 y o female PMH Crohn's presenting for blood in stool, vomiting, fatigue and lower abdominal pain radiating to back x2 days. Ileostomy in place, done in [place] 10 years ago. She had an obstruction 2 months ago. Seen here Friday, sxs worsening since. Reporting difficulty w urination as well. Plan -- labs, UA Medications Administered Discontinued Medications Generic Name Dose Route Start Last Admin Trade Name Freq PRN Reason Stop Dose Admin Hydromorphone HCl 2 mg 01/21/23 22:57 01/21/23 23:04 Hydromorphone Hcl 2 Mg/Ml Vial IM 01/21/23 22:58 2 mg ONCE ONE Administration Protocol Prochlorperazine Edisylate 10 mg 01/21/23 22:57 01/21/23 23:04 Prochlorperazine Edisylate 10 Mg/2 Ml Vial IM 01/21/23 22:58 10 mg ONCE ONE Administration Medical Decision Making Medical Decision Making MDM Narrative: Patient is stable labs normal ESR after taking pain medication patient was drinking fluids in the ER walking around seems to be patient narcotic dependent discharge patient home on Dilaudid tablet advised to follow-up with pain clinic and bilingual student tutor Differential Diagnosis Differential Diagnoses: The differential diagnosis associated with the presentation includes Colitis/Crohn flare-up/obstruction Lab Data [facility] Lab Attestation statement: I reviewed the patient's lab results. 01/21/23 22:03 01/21/23 22:03 Labs: Lab Results 01/21/23 Range/Units 22:03 WBC 10.6 (4.8-10.8) X10*3/uL RBC 5.72 H (4.20-5.50) X10*6/uL Hgb 10.9 L (12.0-16.0) g/dl Hct 38.1 (37.0-47.0) % MCV 66.6 L (80.0-98.0) fL MCH 19.1 L (27.0-33.0) pg MCHC 28.6 L (31.0-35.0) g/dl RDW 27.7 H (11.0-16.0) % Plt Count 340 (160-400) X10*3/uL MPV Not Reportable Immature Gran % (Auto) 0.2 (0.0-0.4) % Neut % (Auto) 56.5 (45-73) % Lymph % (Auto) 30.1 (20-40) % [place] % (Auto) 9.4 (2-11) % Eos % (Auto) 3.4 (0-4) % Baso % (Auto) 0.4 (0-2) % Lymph # (Auto) 3.2 (1.2-4.9) X10*3/uL [place] # (Auto) 1.0 (0.1-1.2) X10*3/uL Eos # (Auto) 0.4 (0.0-0.4) X10*3/uL Baso # (Auto) 0.0 (0.0-0.2) X10*3/uL Abs Immat Gran (auto) 0.02 (0.00-0.03) X10*3/uL Absolute Neuts (auto) 6.0 (2.0-8.3) x10*3/uL Absolute Nucleated RBC 0.000 (0.0-0.012) X10*3/uL Nucleated RBC % (auto) 0.0 (0.0-0.2) /100WBC Smear Tech's Comments VERIFIED ESR 7 (0-20) MM/HR Sodium 141 (135-145) mmol/L Potassium 3.5 (3.3-5.1) mmol/L Chloride 107 (96-108) mmol/L Carbon Dioxide 28 (22-29) mmol/L Anion Gap 10 L (12-20) BUN 9 (9-16) mg/dL Creatinine 0.60 (0.5-1.4) mg/dL Estim Creat Clear Calc 83.2 Estimated GFR > 60 Random Glucose 90 (60-115) mg/dL Calcium 9.7 (8.4-10.2) mg/dL Magnesium 2.3 (1.6-2.6) mg/dL Total Bilirubin 0.3 (0.0-1.0) mg/dL AST 15 (5-31) U/L ALT 12 (0-31) U/L Alkaline Phosphatase 59 (39-117) U/L Total Protein 7.9 (6.5-8.0) g/dL Albumin 4.1 (3.5-5.0) g/dL Lipase 62 (8-78) U/L Discharge Plan Discharge Clinical Impression: Abdominal pain, chronic, generalized, Crohn's disease Patient Disposition: Home, Self-Care Instructions: Crohn Disease (ED), Chronic Abdominal Pain (ED) Additional Instructions: Drink plenty of fluids Take medication as prescribed Follow-up with pain clinic in [place] Prescriptions: New hydromorphone [Dilaudid] 2 mg tablet 2 mg PO Q6H PRN (Reason: pain) Qty: 14 0RF Rx Instructions: Partial Fill upon patient request. ondansetron 4 mg tablet,disintegrating 4 mg PO Q6-8H PRN (Reason: nausea and vomiting) Qty: 14 0RF No Action Pentasa 250 mg Capsule, Extended Release 500 mg PO TID Qty: 90 1RF lidocaine 5 % Ointment 1 appl topical Q6H PRN (Reason: Pain, Mild (Pain Scale 1-3)) 7 Days Qty: 50 1RF Protocol: Apply to: Apply to: right lateral proximal leg ulcers prednisone 10 mg tablet See Taper PO DIRECTED Qty: 70 0RF Taper: Prednisone 40 mg daily for 7 Days and 0 Hour 30 mg daily for 7 Days and 0 Hour 20 mg daily for 7 Days and 0 Hour 10 mg daily for 7 Days and 0 Hour Rx Instructions: see taper instructions oxycodone 5 mg tablet 5 mg PO QID PRN (Reason: PHARMACY) Qty: 20 0RF ferrous sulfate 324 mg (65 mg iron) tablet,delayed release (DR/EC) 324 mg PO DAILY Qty: 30 0RF zolpidem 5 mg tablet 5 mg PO BEDTIME PRN (Reason: Insomnia) Qty: 15 0RF Referrals: Elbert Stark MD [Physician] - Soy Gorman MD [Physician] - 10 days
[2023-01-21 22:11] LABS: SCAN SMEAR FLAG 1
[2023-01-21 22:12] LABS: Basophils Percent Auto 0.4 % (0-2); Eosinophils Absolute Auto 0.4 X10*3/uL (0.0-0.4); Eosinophils Percent Auto 3.4 % (0-4); Hematocrit 38.1 % (37.0-47.0); Hemoglobin 10.9 g/dl (12.0-16.0); Imm Gran Abs Auto 0.02 X10*3/uL (0.00-0.03); Imm Gran Pct Auto 0.2 % (0.0-0.4); Lymphocytes Absolute Auto 3.2 X10*3/uL (1.2-4.9); Lymphocytes Percent Auto 30.1 % (20-40); MANUAL DIFF FLAG SCAN; Mean Corpuscular HGB Conc 28.6 g/dl (31.0-35.0); Mean Corpuscular Hemoglobin 19.1 pg (27.0-33.0); Mean Corpuscular Volume 66.6 fL (80.0-98.0); Monocytes Percent Auto 9.4 % (2-11); Neutrophils Percent Auto 56.5 % (45-73); Platelet Count 340 X10*3/uL (160-400); Red Blood Count 5.72 X10*6/uL (4.20-5.50); Red Cell Distribution Width 27.7 % (11.0-16.0); White Blood Count 10.6 X10*3/uL (4.8-10.8)
[2023-01-21 22:14] LABS: PLT ABN DIST 1
[2023-01-21 22:17] VITALS: BP 101/62; PULSE 96; RESP 18; TEMP 36.8; O2SAT 99
[2023-01-21 22:22] LABS: Alanine Aminotransferase 12 U/L (0-31); Albumin Level 4.1 g/dL (3.5-5.0); Alkaline Phosphatase 59 U/L (39-117); Anion Gap 10 (12-20); Aspartate Amino Transferase 15 U/L (5-31); Bilirubin Total 0.3 mg/dL (0.0-1.0); Blood Urea Nitrogen 9 mg/dL (9-16); Calcium 9.7 mg/dL (8.4-10.2); Carbon Dioxide 28 mmol/L (22-29); Chloride 107 mmol/L (96-108); Creatinine Clr Calc Pharmacy 83.2; Estimated Glomerular Filt Rate > 60; Glucose Random 90 mg/dL (60-115); Lipase 62 U/L (8-78); Magnesium 2.3 mg/dL (1.6-2.6); Potassium 3.5 mmol/L (3.3-5.1); Sodium 141 mmol/L (135-145); Total Protein 7.9 g/dL (6.5-8.0)
--- NOTE | 2023-01-21 22:34 | PC.NURSE ---
Pt A&Ox4, reports 10/10 constant all over ABD pain radiating to bilateral flank with N/V since yesterday. Pt has ileostomy and reports more frequent loose stool with blood seen yesterday . Pt reports burning/pain with urination. Pt reports all over ABD tenderness, + bowel sounds. Pt reports she is a difficult stick and needs an IV with ultrasound guided. Provider made aware.
[2023-01-21 23:00] LABS: SLIDE REVIEW VERIFIED
[2023-01-21] MEDS: Prochlorperazine Edisylate 10 MG/2 ML VIAL IM (23:04)
[2023-01-21] MEDS: HYDROmorphone HCl 2 MG/ML VIAL IM (23:04)
[2023-01-21 23:22] LABS: Erythrocyte Sedimentation Rate 7 MM/HR (0-20)
--- NOTE | 2023-01-21 23:39 | PC.NURSE ---
pt had no episodes of vomiting, given apple juice for PO trial and gram crackers, Pt tolerated well.
== END 2023-01-21 23:42 | disposition home or self-care (01) ==
PROVIDERS: Physician Assistant; Emergency Provider Internal Medicine
DX: K50.90 Crohn's disease, unspecified, without complications (principal); R11.2 Nausea with vomiting, unspecified; R10.9 Unspecified abdominal pain; Z79.899 Other long term (current) drug therapy
CPT/HCPCS: 36415; 80053; 83690; 83735; 85025; 85652; 96372; 99284; J1170

== ENCOUNTER 2023-01-27 08:38 | Inpatient (IN) | payer OTHER, SELFPAY ==
--- NOTE | ~2023-01-27 | CT_ITS ---
EXAMINATION: CT ABDOMEN AND PELVIS WITHOUT CONTRAST CLINICAL INFORMATION: Abdominal pain. COMPARISON: 01/12/2023 TECHNIQUE: Multidetector volumetric imaging was performed from the superior aspect of the liver through the pubic symphysis. Sagittal and coronal reformatted images were obtained on the technologist's workstation. This CT examination was performed using dose optimization techniques as appropriate, variously including the following: *Automated exposure control *Adjustment of mA and/or kV according to patient size (this includes techniques or standardized protocols for targeted exams where dose is matched to indication/reason for exam; i.e. extremities or head) *Use of iterative reconstruction technique DLP: 239 mGy-cm FINDINGS: LUNG BASES: The visualized lung bases are unremarkable. LIVER, GALLBLADDER, AND BILIARY TREE: The noncontrast liver is normal in size and contour. No biliary ductal dilatation is present. Gallstones. PANCREAS: Unremarkable. SPLEEN: Unremarkable. ADRENAL GLANDS: Unremarkable. KIDNEYS AND URETERS: The kidneys are symmetric in size. No hydronephrosis or perinephric stranding. BLADDER: Unremarkable. GASTROINTESTINAL TRACT: Postoperative changes are seen with a right lower quadrant ileostomy. There is bowel wall thickening and fluid distention. The rectum is not clearly identified suggesting prior surgical resection. Patient is likely status post total colectomy. Correlation with patient's surgical history is recommended. ABDOMINAL WALL: No significant hernia is appreciated. LYMPH NODES: No bulky abdominal or pelvic lymphadenopathy. VASCULAR: Normal caliber abdominal aorta. PELVIC VISCERA: Uterus is anteverted. No large adnexal masses are appreciated. OSSEOUS STRUCTURES: No destructive bone lesions. CT/CT abdomen pelvis wo IV con IMPRESSION: Generalized bowel wall thickening and fluid distention concerning for underlying inflammatory process. Advise clinical correlation. Cholelithiasis.
[2023-01-27 08:44] VITALS: BP 100/71; PULSE 124; RESP 17; TEMP 36.5; O2SAT 100; BMI 15.6
--- NOTE | 2023-01-27 09:02 | ECG_ITS ---
Test Reason : tachycardia Blood Pressure : / mmHG Vent. Rate : 106 BPM Atrial Rate : 106 BPM P-R Int : 114 ms QRS Dur : 074 ms QT Int : 334 ms P-R-T Axes : 044 002 001 degrees QTc Int : 443 ms Sinus tachycardia Right atrial enlargement Abnormal ECG No previous ECGs available Referred By: Generic ED Physician Electronically Signed By:JOSE DANIEL ALEXANDER
--- NOTE | 2023-01-27 10:01 | ED_ITS ---
HPI - General Adult General Chief complaint: General Medical Stated complaint: Abd pain Time Seen by Provider: 01/27/23 09:57 Source: patient Mode of arrival: ambulatory Limitations: no limitations History of Present Illness HPI narrative: Increased abdominal pain with a lot of diarrhea. Patient has a colostomy secondary to chrohns disease. She was seen last week and ct showed inflammation of the small bowels. She is having diarrhea up to 10 times a day filling up her ileostomy bag. Onset (ago): month(s) Related Data Previous Rx's Medication Instructions Recorded ferrous sulfate 324 mg (65 mg 324 mg PO DAILY #30 tabs 01/18/23 iron) tablet,delayed release mesalamine 250 mg capsule,extended 500 mg (2 x 250 mg) PO TID #90 caps 01/18/23 release (Pentasa) prednisone 10 mg tablet See Taper PO DIRECTED #70 tabs 01/18/23 ondansetron 4 mg disintegrating 4 mg PO Q6-8H PRN nausea and 01/21/23 tablet vomiting #14 tabs Allergies Allergy/AdvReac Type Severity Reaction Status Date / Time vancomycin Allergy Anaphylaxis Verified 01/12/23 08:38 Review of Systems 2 Review of Systems: Yes all other systems are reviewed and are negative Neurologic: Denies Sensory deficit (Neuro) PMFSH Past Medical History Medical History (Updated 01/27/23 @ 14:10 by Yuri Stanton MD) CHINMAY (iron deficiency anemia) Microcytic anemia Malnutrition 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 History of small bowel obstruction Crohn's disease Surgical History (Updated 01/27/23 @ 15:31 by Claire Valdes NP) H/O colectomy Social History Social History Household Members: None Housing: Homeless Do you presently have visiting nurse or other home services: No Alcohol intake: never Patient Tobacco Use Status: Current everyday Tobacco user Cigarettes Per Day: 7 Substance Use Type: Marijuana Advance Directives: No Advance Directives Information Provided: Yes service: No Physical Exam ED Vital Signs: Vital Signs - 24 hr 01/27/23 08:44 01/27/23 11:42 01/27/23 13:27 Temperature 97.7 F Pulse Rate 124 H 88 87 Respiratory Rate 17 14 19 Blood Pressure 100/71 102/63 97/61 Pulse Oximetry 100 99 99 Oxygen Delivery Method Room Air Room Air Room Air BMI result Body Mass Index 15.6 Const Other: ill appearing, cachectic Orientation/consciousness: oriented to person and patient oriented x3 Limitations: no limitations HENMT Head: Yes normal to inspection Ears: external ears normal General nose exam: Normal external nose present Mouth: Normal oral and palatal mucosa present and oropharynx normal Throat: Yes posterior oropharynx normal Eyes General: appearance normal, both eyes and all related structures Neck Neck: Yes normal visual inspection Chest Chest palpation & inspection: normal inspection of the chest Resp Auscultation: clear to auscultation bilaterally Cardio Jugular venous distension: no JVD Rate: regular rate Rhythm: regular rhythm Heart sounds: S1 normal heart sound present and S2 normal heart sound present GI Other: scaphoid multiple scars, ileostomy bag, diffuse tenderness General: Yes no CVA tenderness Back/Spine/Pelvis Back: no CVA tenderness Skin Other: severe foul smelling wound to right lower extremity Neuro General: oriented to person and patient oriented x3 Cranial nerves: Yes CN's II-XII intact bilaterally Motor exam (neuro): 5/5 motor strength present throughout Sensory Exam: No Sensory deficit (Neuro) Extrem General: Yes normal to inspection Psych Appearance: grossly normal Course Reevaluation(s) Reevaluation #1: Discussed with GI and wound care will admit Time: 14:06 Medications Administered Discontinued Medications Generic Name Dose Route Start Last Admin Trade Name Freq PRN Reason Stop Dose Admin Hydromorphone HCl 1 mg 01/27/23 10:12 01/27/23 11:19 Hydromorphone Hcl 1 Mg/Ml Syringe IVPUSH 01/27/23 10:13 1 mg ONCE ONE Administration Protocol Hydromorphone HCl 1 mg 01/27/23 12:59 01/27/23 13:28 Hydromorphone Hcl 1 Mg/Ml Syringe IVPUSH 01/27/23 13:00 1 mg ONCE ONE Administration Protocol Sodium Chloride 1,000 mls @ 250 mls/hr 01/27/23 10:15 01/27/23 11:22 Ns IVCONT 01/27/23 14:14 250 mls/hr .Q4H MATHIEU Administration Ondansetron HCl 4 mg 01/27/23 10:12 01/27/23 11:22 Ondansetron Hcl 4 Mg/2 Ml Vial IVPUSH 01/27/23 10:13 4 mg ONCE ONE Administration Medical Decision Making Differential Diagnosis Differential Diagnoses: The differential diagnosis associated with the presentation includes (crohns flair, abdominal perforation, malnourished, pyoderma gangrenosum) Admission/Observation Consideration of admission/observation: Escalation of care including admission/observation considered (upon arrival patient considered for admission) Consult Healthcare Provider Management of the patient was discussed with: Hospitalist and Marketing Automation Specialist (GI and wound care) Lab Data MDM Lab Attestation statement: I reviewed the patient's lab results. 01/27/23 11:15 01/27/23 11:15 Labs: Lab Results 01/27/23 Range/Units 11:15 WBC 12.7 H (4.8-10.8) X10*3/uL RBC 6.53 H (4.20-5.50) X10*6/uL Hgb 12.4 (12.0-16.0) g/dl Hct 42.9 (37.0-47.0) % MCV 65.7 L (80.0-98.0) fL MCH 19.0 L (27.0-33.0) pg MCHC 28.9 L (31.0-35.0) g/dl RDW 28.8 H (11.0-16.0) % Plt Count 402 H (160-400) X10*3/uL MPV Not Reportable Immature Gran % (Auto) 0.3 (0.0-0.4) % Neut % (Auto) 70.5 (45-73) % Lymph % (Auto) 22.9 (20-40) % [place] % (Auto) 4.7 (2-11) % Eos % (Auto) 1.3 (0-4) % Baso % (Auto) 0.3 (0-2) % Lymph # (Auto) 2.9 (1.2-4.9) X10*3/uL [place] # (Auto) 0.6 (0.1-1.2) X10*3/uL Eos # (Auto) 0.2 (0.0-0.4) X10*3/uL Baso # (Auto) 0.0 (0.0-0.2) X10*3/uL Abs Immat Gran (auto) 0.04 H (0.00-0.03) X10*3/uL Absolute Neuts (auto) 9.0 H (2.0-8.3) x10*3/uL Absolute Nucleated RBC 0.000 (0.0-0.012) X10*3/uL Nucleated RBC % (auto) 0.0 (0.0-0.2) /100WBC ESR 16 (0-20) MM/HR Sodium 141 (135-145) mmol/L Potassium 4.1 (3.3-5.1) mmol/L Chloride 102 (96-108) mmol/L Carbon Dioxide 24 (22-29) mmol/L Anion Gap 19 (12-20) BUN 9 (9-16) mg/dL Creatinine 0.67 (0.5-1.4) mg/dL Estim Creat Clear Calc 70.9 Estimated GFR > 60 Random Glucose 83 (60-115) mg/dL Calcium 10.9 H D (8.4-10.2) mg/dL Total Bilirubin 0.4 (0.0-1.0) mg/dL AST 27 (5-31) U/L ALT 14 (0-31) U/L Alkaline Phosphatase 81 (39-117) U/L Total Protein 10.1 H (6.5-8.0) g/dL Albumin 5.0 (3.5-5.0) g/dL Independent Interpretation I performed an independent interpretation of an: EKG (sinus tachycardia rate 110, no st or twave changes) Tests considered The following testing was considered but not selected: CT of abdomen considered but patient with recent imaging Chronic Conditions Patient?s care impacted by: Other (crohns disease) Social Determinants Patient?s care significantly limited by Social Determinants of Health including: Low income Discharge Plan Discharge Clinical Impression: Pyoderma gangrenosum Crohn's disease Qualifiers: Gastrointestinal tract location: small intestine Digestive disease complication type: unspecified complication Qualified Code(s): K50.019 - Crohn's disease of small intestine with unspecified complications Patient Disposition: Admitted As Inpatient
[2023-01-27 11:18] LABS: MANUAL DIFF FLAG NO
[2023-01-27] MEDS: HYDROmorphone HCl 1 MG/ML SYRINGE IVPUSH ×4 (11:19→20:32)
[2023-01-27] MEDS: ondansetron HCL 4 MG/2 ML VIAL IVPUSH (11:22)
[2023-01-27] MEDS: 0.9 % Sodium Chloride 1,000 ML 250 ML IVCONT (11:22)
--- NOTE | 2023-01-27 11:23 | PC.NURSE ---
port accesssed and it does not flush or have blood return, ultrasound iv placed r ac, labs sent and medicated as ordered
[2023-01-27 11:24] LABS: Basophils Percent Auto 0.3 % (0-2); Eosinophils Absolute Auto 0.2 X10*3/uL (0.0-0.4); Eosinophils Percent Auto 1.3 % (0-4); Hematocrit 42.9 % (37.0-47.0); Hemoglobin 12.4 g/dl (12.0-16.0); Imm Gran Abs Auto 0.04 X10*3/uL (0.00-0.03); Imm Gran Pct Auto 0.3 % (0.0-0.4); Lymphocytes Absolute Auto 2.9 X10*3/uL (1.2-4.9); Lymphocytes Percent Auto 22.9 % (20-40); Mean Corpuscular HGB Conc 28.9 g/dl (31.0-35.0); Mean Corpuscular Volume 65.7 fL (80.0-98.0); Monocytes Absolute Auto 0.6 X10*3/uL (0.1-1.2); Monocytes Percent Auto 4.7 % (2-11); Neutrophils Percent Auto 70.5 % (45-73); Platelet Count 402 X10*3/uL (160-400); Red Blood Count 6.53 X10*6/uL (4.20-5.50); Red Cell Distribution Width 28.8 % (11.0-16.0); White Blood Count 12.7 X10*3/uL (4.8-10.8)
[2023-01-27 11:36] LABS: Alanine Aminotransferase 14 U/L (0-31); Alkaline Phosphatase 81 U/L (39-117); Anion Gap 19 (12-20); Aspartate Amino Transferase 27 U/L (5-31); Bilirubin Total 0.4 mg/dL (0.0-1.0); Blood Urea Nitrogen 9 mg/dL (9-16); Calcium 10.9 mg/dL (8.4-10.2); Carbon Dioxide 24 mmol/L (22-29); Chloride 102 mmol/L (96-108); Creatinine Clr Calc Pharmacy 70.9; Estimated Glomerular Filt Rate > 60; Glucose Random 83 mg/dL (60-115); Potassium 4.1 mmol/L (3.3-5.1); Sodium 141 mmol/L (135-145); Total Protein 10.1 g/dL (6.5-8.0)
[2023-01-27 11:42] VITALS: BP 102/63; PULSE 88; RESP 14; O2SAT 99
[2023-01-27 11:57] LABS: Erythrocyte Sedimentation Rate 16 MM/HR (0-20)
[2023-01-27 13:27] VITALS: BP 97/61; PULSE 87; RESP 19; O2SAT 99
--- NOTE | 2023-01-27 13:29 | PC.NURSE ---
medicated as ordered, r leg wounds recomended by wound care to be treated with viscous lidocaine but pt refused, she emptied her own colostomy, dilaudid helped the first time but only brief relief
--- NOTE | 2023-01-27 15:27 | P.HPHOSP_ITS ---
History of Present Illness Date of Service: 01/27/23 Chief Complaint: Abdominal pain 37 year old women with a hx of crohns disease presenting with abd pain and watery diarrhea that started 4 days ago. She reported having to empty her ileostomy at least 10 times. She also reported some LUQ abd pain radiating to left flank and back area. She reports a good appetite but has watery stools with every meal. She reported taking the mesalamine and prednisone at home. She also felt that the pyoderma gangrenosa to her RLE was getting worse and had more serosang drainage to it. [place] [facility] [place] and treated for the same. She did improve significantly and had been doing well up untill 4 days ago. In the ED, all of her labs were within normal limits, vital signs stable. Abdominal CT pending. She was given narcotic pain medication, IV fluids and antiemetics. She will be admitted for further management and treatment of diarrhea with abdominal pain. 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 History of small bowel obstruction Crohn's disease Surgical History (Updated 01/27/23 @ 15:31 by Claire Valdes NP) H/O colectomy Social History Household Members: None Housing: Apartment Do you presently have visiting nurse or other home services: No Alcohol intake: never Patient Tobacco Use Status: Current everyday Tobacco user Tobacco use type: Cigarette Cigarette Packs Per Day: 6 Cigarettes Per Day: 120.0 Smoked in Last 30 Days: No Patient Interested in Nicotine Replacement: No Use of substances other than those prescribed or required for medical reasons: No Substance Use Type: Marijuana Currently Displaying Signs/Symptoms of Drug Intoxication Withdrawal: No Have you been hit, kicked, punched, or otherwise hurt by someone within the past year? If so, by whom?: No Do you feel safe in your current relationship?: No Current Relationship Is there a partner from a previous relationship who is making you feel unsafe now?: No Are you made to feel afraid or neglected: No Advance Directives: No Advance Directives Information Provided: Yes Do you have thoughts of harming others: None Do you have a plan to hurt others: No Plan Recently lost weight without trying: Yes How much weight loss: 2-13 pounds Eating poorly because of decreased appetite: No Nutrition screen score: 3 Nutrition Risks: Poor intake 0-25% >4 days Patient : No : No Poor oral hygiene: No service: No Meds Allergies Allergy/AdvReac Type Severity Reaction Status Date / Time vancomycin Allergy Anaphylaxis Verified 01/12/23 08:38 Active Medications: Current Medications Acetaminophen (Acetaminophen 325 Mg Tablet) 650 mg PO Q6H PRN PRN Reason: Pain, Mild (Pain Scale 1-3) Hydromorphone HCl (Hydromorphone Hcl 1 Mg/Ml Syringe) 1 mg IVPUSH Q4H PRN; Protocol PRN Reason: Pain, Moderate(Pain Scale 4-6) Dextrose/Sodium Chloride (D5ns) 1,000 mls @ 100 mls/hr IVCONT .Q10H [facility] Methylprednisolone Sodium Succinate (Methylprednisolone Sod Succ 40 Mg/Ml Vial) 20 mg IVPUSH Q8H [facility] Ondansetron HCl (Ondansetron Hcl 4 Mg/2 Ml Vial) 4 mg IVPUSH Q8H PRN PRN Reason: Nausea and Vomiting Sodium Chloride (0.9 % Sodium Chloride Flush 3 Ml Syringe) 3 ml IVFLUSH QSHIFT [facility] Physical Exam 2 Vital Signs and Narrative: Vital Signs: Last Vital Signs Temp 97.7 F 01/27/23 08:44 Pulse 87 01/27/23 13:27 Resp 19 01/27/23 13:27 BP 97/61 01/27/23 13:27 Pulse Ox 99 01/27/23 13:27 O2 Del Method Room Air 01/27/23 13:27 BMI result Body Mass Index 15.6 Appearing in no acute distress head is normocephalic atraumatic eyes pupils are PERRLA sclera is anicteric mouth throat mucous membranes are intact and moist neck is supple no lymphadenopathy, no JVD noted lung sounds are clear to auscultation heart regular rate rhythm, clear S1, S2 positive bowel sounds, abdomen is soft, nontender neuro patient is alert x3, no focal deficits Skin large area of open skin with erythema and edema, no odor, serosang drainage Results Labs 01/27/23 11:15 01/27/23 11:15 Labs: Laboratory Results - last 24 hr 01/27/23 11:15 MCV 65.7 L MCH 19.0 L MCHC 28.9 L RDW 28.8 H Plt Count 402 H MPV Not Reportable Immature Gran % (Auto) 0.3 Neut % (Auto) 70.5 Lymph % (Auto) 22.9 [place] % (Auto) 4.7 Eos % (Auto) 1.3 Baso % (Auto) 0.3 Lymph # (Auto) 2.9 [place] # (Auto) 0.6 Eos # (Auto) 0.2 Baso # (Auto) 0.0 Abs Immat Gran (auto) 0.04 H Absolute Neuts (auto) 9.0 H Absolute Nucleated RBC 0.000 Nucleated RBC % (auto) 0.0 ESR 16 Anion Gap 19 Estim Creat Clear Calc 70.9 Estimated GFR > 60 Random Glucose 83 Calcium 10.9 H D Total Bilirubin 0.4 AST 27 ALT 14 Alkaline Phosphatase 81 Total Protein 10.1 H Albumin 5.0 Assessment and Plan (1) Pyoderma gangrenosum: Status: Acute Plan 37 year old women with hx of Crohns colitis admitted with watery diarrhea more than 10 times a day. Crohns disease with possible flare large amount of watery stools abd CT pending check Cdiff, if toxin positive treat, if neg give lomitil D5NS IV pain management solumedrol 20mg TID pyoderma gangrenosa acute on chronic Wound Care consult Severe protein calorie malnutrition able to eat but having watery stool with every meal ] may need to consider TPN due to malnutrition DVT prophylaxis with mech boots Full code 2 inpatient midnights for tx of crohns disease requiring close monitoring, IV fluids and parenteral nutrition Time Spent With Patient Time: Total time managing care of this patient today ____ minutes. Quality Stroke Does the patient have a stroke diagnosis?: No VTE Prior VTE?: No VTE Risk Level:: Medical - moderate - high VTE Device Contraindication: N/A - Device Ordered VTE Drug Contraindication: Treatment Not Indicated
--- NOTE | 2023-01-27 15:33 | PHA.MEDREC ---
Pharmacy Consult ? Medication Reconciliation Pharmacy has completed the medication reconciliation.Med rec complete, no issues.
[2023-01-27 15:57] LABS: HCG Quantitative < 2 mIU/mL
[2023-01-27] MEDS: methylPREDNISolone Sod Succ 40 MG/ML VIAL 20 MG IVPUSH ×2 (16:04→21:52)
[2023-01-27] MEDS: Dextrose 5 % and 0.9 % NaCl 1,000 ML 100 ML IVCONT (16:04)
[2023-01-27] MEDS: 0.9 % Sodium Chloride Flush 3 ML SYRINGE IVFLUSH (16:05)
[2023-01-27 16:23] VITALS: BP 96/54; PULSE 82; RESP 12; O2SAT 100
[2023-01-27 18:18] LABS: CDiff Gene PCR POSITIVE (Negative)
[2023-01-27 18:48] LABS: Amphetamine Screen Urine Not Detected (Not Detect); Barbiturates, Urine Not Detected (Not Detect); Benzodiazepines Screen Urine Not Detected (Not Detect); Cannabinoid Screen Urine POSITIVE (Not Detect); Cocaine Screen Urine Not Detected (Not Detect); Fentanyl, urine Not Detected (Not Detect); Opiate Screen Urine POSITIVE (Not Detect); Phencyclidine Screen Urine Not Detected (Not Detect)
[2023-01-27 19:09] LABS: CDiff Toxin Negative (Negative)
[2023-01-27 19:10] LABS: CDIFF Internal ctrl Dots and bkg OK (V)
--- NOTE | 2023-01-27 19:26 | PC.NURSE ---
report attempted at 192, RN not available at this time
--- NOTE | 2023-01-27 20:11 | PC.NURSE ---
report attempted again at 2010, no answer,
[2023-01-27 20:33] VITALS: BP 104/63; PULSE 78; RESP 16; O2SAT 99
--- NOTE | 2023-01-27 20:34 | PC.NURSE ---
pt has been calm and cooperative throughout entire shift, offers no complaints other than pain in R leg abdomen. Medicated with Q4h Diluadid per MAR. Pt is alert and oriented x4, skin pwd, respiraitons even and unlabored, ambulatory as needed. Pt empties ileostomy bag independently. Awaiting transport upstairs at this time
[2023-01-27 21:11] VITALS: BP 112/62; PULSE 80; RESP 18; O2SAT 99
[2023-01-27] MEDS: Mesalamine 250 MG CAPSULE.ER 500 MG PO (21:52)
[2023-01-28] MEDS: HYDROmorphone HCl 1 MG/ML SYRINGE IVPUSH ×7 (00:37→21:41)
[2023-01-28] MEDS: Dextrose 5 % and 0.9 % NaCl 1,000 ML 100 ML IVCONT ×2 (01:38→12:31)
[2023-01-28 07:18] VITALS: BP 96/60; PULSE 80; RESP 16; TEMP 36.4; O2SAT 100
[2023-01-28] MEDS: methylPREDNISolone Sod Succ 40 MG/ML VIAL 20 MG IVPUSH ×3 (07:25→22:30)
[2023-01-28] MEDS: Mesalamine 250 MG CAPSULE.ER 500 MG PO ×3 (08:32→21:46)
--- NOTE | 2023-01-28 09:49 | P.PNIM_ITS ---
Subjective Subjective Date of Service: 01/28/23 Interval History: seen and evaluated complaining of pain still high output from ostomy tolerating diet well Review of Systems Review of Systems: Yes all other systems are reviewed and are negative Physical Exam 2 Vital Signs: Vital Signs: Last Vital Signs Temp 97.6 F 01/28/23 07:18 Pulse 80 01/28/23 07:18 Resp 16 01/28/23 07:18 BP 96/60 01/28/23 07:18 Pulse Ox 100 01/28/23 07:18 O2 Del Method Room Air 01/28/23 07:18 BMI result Body Mass Index 15.6 Appearing in no acute distress lung sounds are clear to auscultation heart regular rate rhythm, clear S1, S2 positive bowel sounds, abdomen is soft, tenderness to left upper quadrant radiating to back, ileostomy present neuro patient is alert x3, no focal deficits Objective Data Active Medications Acetaminophen (Acetaminophen 325 Mg Tablet) 650 mg PO Q6H PRN PRN Reason: Pain, Mild (Pain Scale 1-3) Hydromorphone HCl (Hydromorphone Hcl 1 Mg/Ml Syringe) 1 mg IVPUSH Q4H PRN; Protocol PRN Reason: Pain, Moderate(Pain Scale 4-6) Last Admin: 01/28/23 08:32 Dose: 1 mg Documented By: RAJAN Dextrose/Sodium Chloride (D5ns) 1,000 mls @ 100 mls/hr IVCONT .Q10H [facility] Last Admin: 01/28/23 01:38 Dose: 100 mls/hr Documented By: SANTANA Mesalamine (Mesalamine 250 Mg Capsule.Er) 500 mg PO TID [facility] Last Admin: 01/28/23 08:32 Dose: 500 mg Documented By: RAJAN Methylprednisolone Sodium Succinate (Methylprednisolone Sod Succ 40 Mg/Ml Vial) 20 mg IVPUSH Q8H [facility] Last Admin: 01/28/23 07:25 Dose: 20 mg Documented By: RAJAN Ondansetron HCl (Ondansetron Hcl 4 Mg/2 Ml Vial) 4 mg IVPUSH Q8H PRN PRN Reason: Nausea and Vomiting Sodium Chloride (0.9 % Sodium Chloride Flush 3 Ml Syringe) 3 ml IVFLUSH QSHIFT [facility] Last Admin: 01/28/23 07:09 Dose: Not Given Documented By: RAJAN Non-Admin Reason: IV Running Labs 01/27/23 11:15 01/27/23 11:15 Labs: Laboratory Results - last 24 hr 01/27/23 01/27/23 01/27/23 11:15 16:43 18:36 MCV 65.7 L MCH 19.0 L MCHC 28.9 L RDW 28.8 H Plt Count 402 H MPV Not Reportable Immature Gran % (Auto) 0.3 Neut % (Auto) 70.5 Lymph % (Auto) 22.9 [place] % (Auto) 4.7 Eos % (Auto) 1.3 Baso % (Auto) 0.3 Lymph # (Auto) 2.9 [place] # (Auto) 0.6 Eos # (Auto) 0.2 Baso # (Auto) 0.0 Abs Immat Gran (auto) 0.04 H Absolute Neuts (auto) 9.0 H Absolute Nucleated RBC 0.000 Nucleated RBC % (auto) 0.0 ESR 16 Anion Gap 19 Estim Creat Clear Calc 70.9 Estimated GFR > 60 Random Glucose 83 Calcium 10.9 H D Total Bilirubin 0.4 AST 27 ALT 14 Alkaline Phosphatase 81 Total Protein 10.1 H Albumin 5.0 Beta HCG, Quant < 2 Urine Opiates Screen POSITIVE H Urine Fentanyl Screen Not Detected Ur Barbiturates Screen Not Detected Ur Phencyclidine Scrn Not Detected Ur Amphetamines Screen Not Detected U Benzodiazepines Scrn Not Detected Urine Cocaine Screen Not Detected U Marijuana (THC) Screen POSITIVE H C. difficile Tox B Gene POSITIVE A* C. difficile Toxin A&B Negative C. difficile Interpret SEE NOTE Assessment and Plan (1) Pyoderma gangrenosum: Status: Acute Plan 37 year old women with hx of Crohns colitis admitted with watery diarrhea more than 10 times a day. Crohns disease with possible flare large amount of watery stools abd CT> generalized bowel wall thickening and fluid distension concerning for underlying inflammatory process check Cdiff tox B gene positive D5NS IV pain management solumedrol 20mg TID GI consultation>treat for cdiff with dificid, add questran, start TPN for nutrition pyoderma gangrenosa acute on chronic Wound Care consult pending Severe protein calorie malnutrition able to eat but having watery stool with every meal start PPN today, picc line ordered then start TPN Nutrition/lead tinner following DVT prophylaxis with mech boots Attending Dr. Lema Full code Continued hopsital stay for tx of crohns flare Time Spent With Patient Time: Total time managing care of this patient today ____ minutes. Quality Stroke Does the patient have a stroke diagnosis?: No VTE Prior VTE?: No VTE Risk Level:: Medical - moderate - high VTE Device Contraindication: N/A - Device Ordered VTE Drug Contraindication: Treatment Not Indicated
--- NOTE | 2023-01-28 09:57 | MHC.CM.PN ---
pt stays with friends is independet [place] [facility]
--- NOTE | 2023-01-28 10:30 | PM.GICN ---
History of Present Illness Data of Consult Service Date: 01/28/23 Primary Care Provider: Unknown Physician HPI Reason for consult: diarrhea 37-year-old woman with a history of Crohn's disease status post colectomy with ostomy 2012 who I am seeing for assessment. [place] [facility] [place] with diarrhea and abdominal pain. She was pos for c diff pcr but neg toxin and was treated with steroid and mesalamine with plan to restart cimzia as o/p which she had been off for several months. Initially she apparenly told hospitalist she was doing well on the treatment regimen up till 4 d ago but to me patient said she never felt better at all and has been sick with ongoing high stoma output with diarrhea, and food just going thru her. she denies any bloody output has good appetite but losing weight. She has noted LUQ pain going into the left flank. Also noted increing worse d/c from a leg wound which she has been told in past is pyoderma gangrenosum. LABS: Rept c diff PCR pos, toxin neg, HGB 12, MCV -microcytic, nml LFT< BMP, TP elevated, raised WCC IMAGING: distended stomach with debris and thickened bowel, gallstones Review of Systems Review of Systems: Constitutional : + Weight loss, No Fever, No Chills ENT/Mouth : No sore throat, No Rhinorrhea Eyes: No Swelling, No Redness Cardiovascular : No Chest Pain, No SOB, No Edema Respiratory : No Cough, No Sputum, No Wheezing Gastrointestinal : see HPI Genitourinary : NO Dysuria, No Urinary Frequency, No Hematuria, No Urgency Musculoskeletal : No joint pain, No Myalgias, No Joint Swelling Skin : + Skin Lesions, No rash Neuro : + Weakness, No Numbness, No Dizziness, No Headache Psych : No Anxiety/Panic, No Depression Heme/Lymph: No Bruising, No Lymphadenopathy Endocrine : No Polyuria, No Polydipsia All other systems reviewed and are negative. 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 History of small bowel obstruction Crohn's disease Family History Pertinent family history: no FH of IBD Surgical History Surgical History (Updated 01/27/23 @ 15:31 by Claire Valdes NP) H/O colectomy Social History Social History Household Members: None Housing: Apartment Do you presently have visiting nurse or other home services: No Alcohol intake: never Patient Tobacco Use Status: Current everyday Tobacco user Tobacco use type: Cigarette Cigarette Packs Per Day: 6 Cigarettes Per Day: 120.0 Smoked in Last 30 Days: No Patient Interested in Nicotine Replacement: No Use of substances other than those prescribed or required for medical reasons: No Substance Use Type: Marijuana Currently Displaying Signs/Symptoms of Drug Intoxication Withdrawal: No Have you been hit, kicked, punched, or otherwise hurt by someone within the past year? If so, by whom?: No Do you feel safe in your current relationship?: No Current Relationship Is there a partner from a previous relationship who is making you feel unsafe now?: No Are you made to feel afraid or neglected: No Advance Directives: No Advance Directives Information Provided: Yes Do you have thoughts of harming others: None Do you have a plan to hurt others: No Plan Recently lost weight without trying: Yes How much weight loss: 2-13 pounds Eating poorly because of decreased appetite: No Nutrition screen score: 3 Nutrition Risks: Poor intake 0-25% >4 days Patient : No : No Poor oral hygiene: No service: No Meds Allergies Allergy/AdvReac Type Severity Reaction Status Date / Time vancomycin Allergy Anaphylaxis Verified 01/12/23 08:38 Active Medications: Current Medications Acetaminophen (Acetaminophen 325 Mg Tablet) 650 mg PO Q6H PRN PRN Reason: Pain, Mild (Pain Scale 1-3) Hydromorphone HCl (Hydromorphone Hcl 1 Mg/Ml Syringe) 1 mg IVPUSH Q4H PRN; Protocol PRN Reason: Pain, Moderate(Pain Scale 4-6) Last Admin: 01/28/23 08:32 Dose: 1 mg Dextrose/Sodium Chloride (D5ns) 1,000 mls @ 100 mls/hr IVCONT .Q10H [facility] Last Admin: 01/28/23 01:38 Dose: 100 mls/hr Mesalamine (Mesalamine 250 Mg Capsule.Er) 500 mg PO TID [facility] Last Admin: 01/28/23 08:32 Dose: 500 mg Methylprednisolone Sodium Succinate (Methylprednisolone Sod Succ 40 Mg/Ml Vial) 20 mg IVPUSH Q8H [facility] Last Admin: 01/28/23 07:25 Dose: 20 mg Ondansetron HCl (Ondansetron Hcl 4 Mg/2 Ml Vial) 4 mg IVPUSH Q8H PRN PRN Reason: Nausea and Vomiting Sodium Chloride (0.9 % Sodium Chloride Flush 3 Ml Syringe) 3 ml IVFLUSH QSHIFT [facility] Last Admin: 01/28/23 07:09 Dose: Not Given Physical Exam Vital Signs: Vital Signs: Last Vital Signs Temp 97.6 F 01/28/23 07:18 Pulse 80 01/28/23 07:18 Resp 16 01/28/23 07:18 BP 96/60 01/28/23 07:18 Pulse Ox 100 01/28/23 07:18 O2 Del Method Room Air 01/28/23 07:18 BMI result Body Mass Index 15.6 EXAM: GENERAL: The patient is thin VITAL SIGNS:see workflow HEENT: Nonicteric sclerae, PERRLA, EOMI. Oropharynx clear. Moist mucous membranes. Conjunctivae appear well perfused. No thyroid mass. CHEST: Chest wall is nontender. HEART: Regular rate and rhythm without murmurs. LUNGS: Clear to auscultation bilaterally. ABDOMEN: Soft, positive bowel sounds, nontender, no organomegaly.no flank tenderness SKIN: bandage on lower leg NEUROLOGIC: Cranial nerves II-XII intact without motor/sensory deficit. psych-nml Results Labs 01/27/23 11:15 01/27/23 11:15 Labs: Short CBC 01/27/23 Range/Units 11:15 WBC 12.7 H (4.8-10.8) X10*3/uL Hgb 12.4 (12.0-16.0) g/dl Hct 42.9 (37.0-47.0) % Plt Count 402 H (160-400) X10*3/uL BMP 01/27/23 11:15 Sodium 141 Potassium 4.1 Chloride 102 Carbon Dioxide 24 BUN 9 Creatinine 0.67 Calcium 10.9 H D Liver Function 01/27/23 Range/Units 11:15 Total Bilirubin 0.4 (0.0-1.0) mg/dL AST 27 (5-31) U/L ALT 14 (0-31) U/L Alkaline Phosphatase 81 (39-117) U/L Albumin 5.0 (3.5-5.0) g/dL Imaging CT scan - abdomen: Attestation: I personally reviewed and interpreted this imaging study as follows: (distended stomach, thickened bowel and gallstones) Assessment and Plan (1) Crohn's disease: Qualifiers: Digestive disease complication type: unspecified complication Gastrointestinal tract location: small intestine Qualified Code(s): K50.019 - Crohn's disease of small intestine with unspecified complications Status: Acute (2) Pyoderma gangrenosum: Status: Acute (3) Malnutrition: Qualifiers: Malnutrition type: protein-calorie malnutrition Protein-calorie malnutrition severity: moderate Qualified Code(s): E44.0 - Moderate protein-calorie malnutrition Status: Acute Plan 1/ Hx of crohns, suspected flare of disease vs c diff or short bowel syndrome, panc insuff 2/ severe protein calorie def due to 1/ above 3/ worsening pyoderma related to 1/ above PLAN: 1/ Recommence solumedrol IV 20 mg q8h for at least 72 hr 2/ add dificid 3/ can add cholestyramine, and creon, might add PPI as well 4/ might need to consider endoscopy for further assessment and bx to r/o CMV 5/ try to get her cimzia reapproved, control of her IBD will improve PG healing 6/ DVT prophylaxis, high risk of DVT 7/ low threshold for PPN or TPN due to her malnutrition Time Spent With Patient Time: Total time managing care of this patient today ____ minutes. Procedures Date of Service Date of Service: 01/28/23
[2023-01-28 11:25] VITALS: BMI 15.6
--- NOTE | 2023-01-28 11:32 | MHC.CLN ---
RE: CONSULT PT IS SEVERELY MALNOURISHED PT WITH MODERATELY DEPLETED BODY FAT IN TRICEP AREA AND MUSCLE MASS WITH POOR PO <50% X 7 DAYS IN ADDIITON TO POOR SOCIO-ECONOMIC STATUS (LIVES WITH FRIENDS) DIET RX: REGULAR-APPROPRIATE PT WITH APPETITE BUT C/O OF MULTIPLE BOUTS OF WATERY DIARRHEA AFTER MEALS DISCUSSED WITH MD TO START PPN R/T MALNUTRITION, CROHNS FLARE AND MALABSORPTION RECOMMEND PPN AT 45ML/HR TO PROVIDE 551 KCALS, 108G DEXTROSE, 46G PROTEIN (1.2G/KG) DISCUSSED WITH PHARMACY REPLETE LYTES NEEDED MONITOR PO INTAKE CLOSELY
[2023-01-28] MEDS: Fidaxomicin 200 MG TABLET PO ×2 (13:55→21:46)
[2023-01-28] MEDS: Lipase/Prot/Amylase 12/38/60K CAPSULE.DR 1 CAP PO ×2 (13:55→17:25)
[2023-01-28] MEDS: ondansetron HCL 4 MG/2 ML VIAL IVPUSH (14:58)
[2023-01-28 15:01] VITALS: BP 123/62; PULSE 66; RESP 16; TEMP 35.9; O2SAT 99
[2023-01-28 15:46] VITALS: BP 123/62; PULSE 66; RESP 16; TEMP 36.1; O2SAT 99
--- NOTE | 2023-01-28 15:53 | HO.WOUND ---
Wound Care Consult Reason for consult: Pyoderma Gangrenosum Patient is primarily Lao speaking but does speak some Syrian. She was in the bed at the time of consult. Patient has had these wounds on her right leg for a very long time and cares for them herself. Lidocaine ointment was ordered by one of the wound care providers while patient was in the ER to help with the pain but the patient refused for it to be used per the nurses note. Patient has stated that the ointment didn't work, but not sure which ointment she was referring too. Patient removed the dressing herself. Xeroform, ABD pads and kerlix removed. Patient showed a picture of the product she was using at home, which looked like regular nonadhesive pads. Moderate amount of serosanguineous drainage on dressing. Very odorous. Wound beds were large amounts of slough and eschar and small red tissue. Surrounding skin was dry and intact but scarred. Wound edges were attached from what could be assessed. Patient in pain when touched and only wants to do the dressing herself. Patient is very capable, did watch her do the dressing. Wounds are full thickness. The measurement of lower right leg was circumferential. Clustered area measured 17.5cm x 18cmx 0.3cm. Wounds cleansed with sea clens. Xeroform reapplied to areas. Covered with ABD pads and secured with kerlix and tape. Recommendation: Typically these wounds would need debridement but if these wounds are truly pyoderma than that would only make them worse. This type of wound typically is treated systemically but not sure if patient is or ever was being treated for this condition. Would recommend if patient is able to seek a provider that could help manage treatment for pyoderma. Otherwise for the localized treatment of the wounds, may continue to cleanse wound with sea clens wound cleanser. Apply xeroform to the wounds. Cover with ABD pads and secure with Kerlix and tape. Change dressing daily. If there are any changes or questions, please feel free and reconsult wound care.
[2023-01-28] MEDS: Cholestyramine (With Sugar) 4 GM POWD.PACK PO (17:26)
--- NOTE | 2023-01-28 17:31 | HO.PICC ---
PICC Line Insertion NPICC Diagnosis: crohns disease/ malnutrition Indication: TPN Pertinent Labs: reviewed Technique: Following informed consent including risks, benefits and alternatives and using sterile technique including cap and mask, sterile gown, glove and drape, the left arm was prepped and draped in the usual sterile fashion of full barrier technique with G. Following completion of Pinch Protocol the skin and soft tissues were anesthetized with 1% Lidocaine plain. Using ultrasound guidance, left brachial vein access was obtained by this RN, unable to pass guide wire.Dr Granados was able to access the left brachial vein . Over an 0.018 wire through peel-away sheath, a 5 FR triple lumen PASV PICC line was positioned. Catheter length is 41 cm internal length, 0 cm at the external monty, for a total trimmed length of 41 cm. The procedure was performed in S272. Tip verification was performed by Shameka Foster with Sherlock 3CG. Tip located in SVC. Ultrasound was used to document vein patency and for needle entry. A formal ultrasound picture and cardiac rhythm strip was recorded. [facility] has released the line for use and it is currently dressed with a StatLock, Tegaderm, and CHG disc. Verification has been performed for blood return and line patency. Arm Circumference: 19 cm Equipment: [employer] powerPICC SOLO Catheter Type: 5 FR triple lumen PASV PICC Lot #: [id number]
[2023-01-28 19:09] VITALS: BP 130/60; PULSE 64; RESP 16; TEMP 35.7; O2SAT 99
[2023-01-28] MEDS: Parenteral Nutrition 1,080 ML 45 ML IV (21:52)
--- NOTE | 2023-01-28 23:24 | P.CNID_ITS ---
History of Present Illness Data of Consult Service Date: 01/28/23 Requesting physician: Claire Valdes Primary Care Provider: Unknown Physician HPI Reason for consult: diarrhea,Cdiff She presents second time recently for profuse diarrhea,10x a day in colostomy. She has Cdiff rx only four days Vancomycin last stay since thought colonized with Cdiff only. She is getting Dificid. 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 History of small bowel obstruction Crohn's disease Family History Family history: reviewed and not pertinent Surgical History Surgical History H/O colectomy Social History Social History Household Members: None Housing: Apartment Do you presently have visiting nurse or other home services: No Alcohol intake: never Patient Tobacco Use Status: Current everyday Tobacco user Tobacco use type: Cigarette Cigarette Packs Per Day: 6 Cigarettes Per Day: 120.0 Smoked in Last 30 Days: No Patient Interested in Nicotine Replacement: No Use of substances other than those prescribed or required for medical reasons: No Substance Use Type: Marijuana Currently Displaying Signs/Symptoms of Drug Intoxication Withdrawal: No Have you been hit, kicked, punched, or otherwise hurt by someone within the past year? If so, by whom?: No Do you feel safe in your current relationship?: No Current Relationship Is there a partner from a previous relationship who is making you feel unsafe now?: No Are you made to feel afraid or neglected: No Advance Directives: No Advance Directives Information Provided: Yes Do you have thoughts of harming others: None Do you have a plan to hurt others: No Plan Recently lost weight without trying: Yes How much weight loss: 2-13 pounds Eating poorly because of decreased appetite: No Nutrition screen score: 3 Nutrition Risks: Poor intake 0-25% >4 days Patient : No : No Poor oral hygiene: No service: No Meds Allergies Allergy/AdvReac Type Severity Reaction Status Date / Time vancomycin Allergy Anaphylaxis Verified 01/12/23 08:38 Active Medications: Current Medications Acetaminophen (Acetaminophen 325 Mg Tablet) 650 mg PO Q6H PRN PRN Reason: Pain, Mild (Pain Scale 1-3) Lipase/Protease/Amylase (Lipase/Prot/Amylase //60k Capsule.Dr) 1 cap PO TIDWM [facility] Last Admin: 01/28/23 17:25 Dose: 1 cap Cholestyramine Resin (Cholestyramine (With Sugar) 4 Gm Powd.Pack) 4 gm PO BIDWM [facility] Last Admin: 01/28/23 17:26 Dose: 4 gm Fidaxomicin (Fidaxomicin 200 Mg Tablet) 200 mg PO BID [facility] Last Admin: 01/28/23 21:46 Dose: 200 mg Hydromorphone HCl (Hydromorphone Hcl 1 Mg/Ml Syringe) 1 mg IVPUSH Q3H PRN; Protocol PRN Reason: Pain, Moderate(Pain Scale 4-6) Last Admin: 01/28/23 21:41 Dose: 1 mg Dextrose/Sodium Chloride (D5ns) 1,000 mls @ 100 mls/hr IVCONT .Q10H [facility] Last Admin: 01/28/23 23:17 Dose: Not Given Nutrition (Parenteral) (Parenteral Nutrition) 1,080 mls @ 45 mls/hr IV .Q24H [facility]; Protocol Stop: 01/29/23 20:59 Last Admin: 01/28/23 21:52 Dose: 45 mls/hr Mesalamine (Mesalamine 250 Mg Capsule.Er) 500 mg PO TID [facility] Last Admin: 01/28/23 21:46 Dose: 500 mg Methylprednisolone Sodium Succinate (Methylprednisolone Sod Succ 40 Mg/Ml Vial) 20 mg IVPUSH Q8H [facility] Last Admin: 01/28/23 22:30 Dose: 20 mg Ondansetron HCl (Ondansetron Hcl 4 Mg/2 Ml Vial) 4 mg IVPUSH Q8H PRN PRN Reason: Nausea and Vomiting Last Admin: 01/28/23 14:58 Dose: 4 mg Pharmacy Consult (Consult Rx Parenteral Nutrition Ordering) 1 each MISCELLANE DAILY PRN PRN Reason: Consult order Sodium Chloride (0.9 % Sodium Chloride Flush 3 Ml Syringe) 3 ml IVFLUSH QSHIFT [facility] Last Admin: 01/28/23 14:46 Dose: Not Given Physical Exam 2 Vital Signs: Vital Signs: Last Vital Signs Temp 96.2 F L 01/28/23 19:09 Pulse 64 01/28/23 19:09 Resp 16 01/28/23 19:09 BP 130/60 01/28/23 19:09 Pulse Ox 99 01/28/23 19:09 O2 Del Method Room Air 01/28/23 19:09 BMI result Body Mass Index 15.6 Const: General: cooperative HEENT: Head: Yes normal to inspection Face and sinus: Yes normal facial exam Mouth: Normal oral and palatal mucosa present Teeth and gingiva: d entition normal Eyes: General: appearance normal, both eyes and all related structures P upils: Equal, round and reactive pupils present Resp: Effort & Inspection: normal respiratory effort Cardio: Rate: regular rate Rhythm: regular rhythm GI: Other: ostomy abdomen Palpation (GI): Soft to palpation and nontender : General: Yes no CVA tenderness Back/Spine/Pelvis: Back: no CVA tenderness Skin: General skin exam: no rashes or lesions noted Neuro: General: moves all extremities Cranial nerves: Yes Equal, round and reactive pupils present Extrem: General: Yes normal to inspection Psych: Appearance: grossly normal Results Labs 01/27/23 11:15 01/27/23 11:15 Assessment and Plan (1) Crohn's disease: Qualifiers: Digestive disease complication type: unspecified complication G astrointestinal tract location: small intestine Qualified Code(s): K50.019 - Crohn's disease of small intestine with unspecified complications Status: Acute (2) Clostridium difficile colitis: Status: Acute Probable real Cdiff and toxin isnt present enough to show on assay Plan Dificid for 10 days 200 mg bid and if not covered Vancomycin 125 mg po qid for 10 days and consider taper. See GI ?other source such as Crohns exacerbation. Of note she says she was on antibiotics two months ago when hospitalized in [place] with bowel obstruction so would give po Vancomycin whenever on antibiotics in future for course and two days after. See Addiction Medicine since has used fentanyl Time Spent With Patient Time: Total time managing care of this patient today ____ minutes.
[2023-01-29] MEDS: Dextrose 5 % and 0.9 % NaCl 1,000 ML 100 ML IVCONT ×3 (00:28→19:24)
[2023-01-29] MEDS: HYDROmorphone HCl 1 MG/ML SYRINGE IVPUSH ×8 (00:41→22:26)
[2023-01-29 04:29] VITALS: BP 127/57; PULSE 67; RESP 16; TEMP 36; O2SAT 98
[2023-01-29 06:52] LABS: Anion Gap 10 (12-20); Blood Urea Nitrogen 8 mg/dL (9-16); Calcium 9.3 mg/dL (8.4-10.2); Carbon Dioxide 24 mmol/L (22-29); Chloride 108 mmol/L (96-108); Creatinine Clr Calc Pharmacy 93.2; Estimated Glomerular Filt Rate > 60; Glucose Random 101 mg/dL (60-115); Potassium 4.1 mmol/L (3.3-5.1); Sodium 138 mmol/L (135-145)
[2023-01-29] MEDS: methylPREDNISolone Sod Succ 40 MG/ML VIAL 20 MG IVPUSH ×3 (07:16→22:23)
[2023-01-29] MEDS: Fidaxomicin 200 MG TABLET PO ×2 (07:17→19:22)
[2023-01-29] MEDS: Mesalamine 250 MG CAPSULE.ER 500 MG PO ×3 (07:17→19:21)
[2023-01-29] MEDS: Lipase/Prot/Amylase 12/38/60K CAPSULE.DR 1 CAP PO ×3 (07:17→17:33)
[2023-01-29] MEDS: 0.9 % Sodium Chloride Flush 3 ML SYRINGE IVFLUSH (07:23)
[2023-01-29 07:59] VITALS: BP 132/61; PULSE 66; RESP 18; TEMP 36.1; O2SAT 99
[2023-01-29 09:08] LABS: Albumin Level 3.5 g/dL (3.5-5.0); Magnesium 1.9 mg/dL (1.6-2.6); Triglycerides 61 mg/dL (<150)
--- NOTE | 2023-01-29 09:26 | MHC.CLN ---
F/U PT IS SEVERELY MALNOURISHED. DIET RX: REGULAR-APPROPRIATE. SUPPLEMENT ENSURE MAX PROTEIN BID (300 KCALS, 60 G PROTEIN). PICC LINE PLACED 01/28. TPN DUE TO MALNUTRITION, CROHNS FLARE, C-DIFF, AND MALABSORPTION. REVIEWED LABS; DISCUSSED WITH PHARMACY. RECOMMEND MAX GOAL RATE TPN: 60 G PROTEIN (1.55 G/KG) 180 G DEXTROSE ADD 35 G LIPIDS (.9 G/KG) TPN PLUS LIPIDS PROVIDES 1202 KCALS (31.1 G/KG). REPLETE LYTES NEEDED. MONITOR PO INTAKE CLOSELY.
--- NOTE | 2023-01-29 09:43 | MHC.CLN ---
Addendum entered by Xin Martinez, HEYDI 01/29/23 10:02: MAX GOAL RATE OF TPN IS 50 ML/HOUR. Original Note: F/U PT IS SEVERELY MALNOURISHED. DIET RX: REGULAR-APPROPRIATE. SUPPLEMENT ENSURE MAX PROTEIN BID (300 KCALS, 60 G PROTEIN). PICC LINE PLACED 01/28. TPN DUE TO MALNUTRITION, CROHNS FLARE, C-DIFF, AND MALABSORPTION. REVIEWED LABS; DISCUSSED WITH PHARMACY. RECOMMEND MAX GOAL RATE TPN: 60 G PROTEIN (1.55 G/KG) 180 G DEXTROSE ADD 35 G LIPIDS (.9 G/KG) TPN PLUS LIPIDS PROVIDES 1202 KCALS (31.1 KCAL/KG). REPLETE LYTES NEEDED. MONITOR PO INTAKE CLOSELY.
--- NOTE | 2023-01-29 10:37 | P.PNIM_ITS ---
Subjective Subjective Date of Service: 01/29/23 Interval History: seen and evaluated complaining of pain stool more formed in ostomy tolerating diet well, also on TPN Review of Systems Review of Systems: Yes all other systems are reviewed and are negative Physical Exam 2 Vital Signs: Vital Signs: Last Vital Signs Temp 96.9 F 01/29/23 07:59 Pulse 66 01/29/23 07:59 Resp 18 01/29/23 07:59 BP 132/61 01/29/23 07:59 Pulse Ox 99 01/29/23 07:59 O2 Del Method Room Air 01/29/23 07:59 BMI result Body Mass Index 15.6 Appearing in no acute distress. thin and frail lung sounds are clear to auscultation heart regular rate rhythm, clear S1, S2 positive bowel sounds, abdomen is soft, tender to LUQ neuro patient is alert x3, no focal deficits Objective Data Active Medications Acetaminophen (Acetaminophen 325 Mg Tablet) 650 mg PO Q6H PRN PRN Reason: Pain, Mild (Pain Scale 1-3) Lipase/Protease/Amylase (Lipase/Prot/Amylase 12/38/60k Capsule.Dr) 1 cap PO TIDWM [facility] Last Admin: 01/29/23 07:17 Dose: 1 cap Documented By: VALERIANO Cholestyramine Resin (Cholestyramine (With Sugar) 4 Gm Powd.Pack) 4 gm PO BIDWM [facility] Last Admin: 01/29/23 07:17 Dose: Not Given Documented By: VALERIANO Non-Admin Reason: Patient Refused Fidaxomicin (Fidaxomicin 200 Mg Tablet) 200 mg PO BID [facility] Last Admin: 01/29/23 07:17 Dose: 200 mg Documented By: VALERIANO Heparin Sodium (Porcine) (Heparin Sodium,Porcine Flush 50 Units/5 Ml Syringe) 50 units IVFLUSH QSHIFT [facility] Last Admin: 01/29/23 07:23 Dose: Not Given Documented By: VALERIANO Non-Admin Reason: Patient Refused Hydromorphone HCl (Hydromorphone Hcl 1 Mg/Ml Syringe) 1 mg IVPUSH Q3H PRN; Protocol PRN Reason: Pain, Moderate(Pain Scale 4-6) Last Admin: 01/29/23 10:17 Dose: 1 mg Documented By: VALERIANO Dextrose/Sodium Chloride (D5ns) 1,000 mls @ 100 mls/hr IVCONT .Q10H [facility] Last Admin: 01/29/23 10:21 Dose: 100 mls/hr Documented By: VALERIANO Nutrition (Parenteral) (Parenteral Nutrition) 1,080 mls @ 45 mls/hr IV .Q24H [facility]; Protocol Stop: 01/29/23 20:59 Last Admin: 01/28/23 21:52 Dose: 45 mls/hr Documented By: MILA Nutrition (Parenteral) (Parenteral Nutrition) 1,200 mls @ 50 mls/hr IV .Q24H [facility]; Protocol Stop: 01/30/23 20:59 Mesalamine (Mesalamine 250 Mg Capsule.Er) 500 mg PO TID [facility] Last Admin: 01/29/23 07:17 Dose: 500 mg Documented By: VALERIANO Methylprednisolone Sodium Succinate (Methylprednisolone Sod Succ 40 Mg/Ml Vial) 20 mg IVPUSH Q8H [facility] Last Admin: 01/29/23 07:16 Dose: 20 mg Documented By: VALERIANO Ondansetron HCl (Ondansetron Hcl 4 Mg/2 Ml Vial) 4 mg IVPUSH Q8H PRN PRN Reason: Nausea and Vomiting Last Admin: 01/28/23 14:58 Dose: 4 mg Documented By: RAJAN Pharmacy Consult (Consult Rx Parenteral Nutrition Ordering) 1 each MISCELLANE DAILY PRN PRN Reason: Consult order Sodium Chloride (0.9 % Sodium Chloride Flush 3 Ml Syringe) 3 ml IVFLUSH QSOKFT [facility] Last Admin: 01/29/23 06:43 Dose: Not Given Documented By: VALERIANO Non-Admin Reason: IV Running Sodium Chloride (0.9 % Sodium Chloride Flush 3 Ml Syringe) 3 ml IVFLUSH QSOKFT [facility] Last Admin: 01/29/23 07:23 Dose: 3 ml Documented By: VALERIANO Labs 01/27/23 11:15 01/29/23 06:14 Labs: Laboratory Results - last 24 hr 01/29/23 06:14 Hold Purple Top SEE NOTE Anion Gap 10 L Estim Creat Clear Calc 93.2 Estimated GFR > 60 Random Glucose 101 Calcium 9.3 D Magnesium 1.9 Albumin 3.5 Triglycerides 61 Assessment and Plan (1) Pyoderma gangrenosum: Status: Acute Plan 37 year old women with hx of Crohns colitis admitted with watery diarrhea more than 10 times a day. Crohns disease with flare abd CT> generalized bowel wall thickening and fluid distension concerning for underlying inflammatory process, ? gastroparesis vs gastric outlet obstruction Cdiff tox B gene positive, may be contributing to watery stools D5NS IV pain management solumedrol 20mg TID questran 4gm BID Pentasa 500mg TID GI consultation>treat for cdiff with dificid, add questran, start TPN for nutrition Plan for EGD in am, NPO after midnight CDIFF continue to treat with Dificid, may continue long taper with vancomycin ID following pyoderma gangrenosa acute on chronic Wound Care following> patient wants to do her own dressing and she is capable, cleans wound, apply xerform, abd pain and kerlix Severe protein calorie malnutrition able to eat but having watery stool with every meal s/p PICC line, now on TPN 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 Hutchison Full code Continued hospital stay for tx of crohns flare Time Spent With Patient Time: Total time managing care of this patient today ____ minutes. Quality Stroke Does the patient have a stroke diagnosis?: No VTE Prior VTE?: No VTE Risk Level:: Medical - moderate - high VTE Device Contraindication: N/A - Device Ordered VTE Drug Contraindication: Treatment Not Indicated
--- NOTE | 2023-01-29 12:01 | MHC.CM.PN ---
Per MD rounds no discharge today. Patient is being treated for Chron's Flair. Line placed yesterday for TPN. DP home self care. She will need assist with transportation.
[2023-01-29 16:00] VITALS: BP 139/66; PULSE 71; RESP 18; TEMP 36.3; O2SAT 100
--- NOTE | 2023-01-29 16:09 | P.PNID_ITS ---
Subjective Subjective Date of Service: 01/29/23 Critical Care Time (minutes): 15 Comment: patient reports improved diarrhea slightly Objective Data Labs 01/27/23 11:15 01/29/23 06:14 Labs: Laboratory Results - last 24 hr 01/29/23 06:14 Hold Purple Top SEE NOTE Sodium 138 Potassium 4.1 Chloride 108 Carbon Dioxide 24 Anion Gap 10 L BUN 8 L Creatinine 0.51 Estim Creat Clear Calc 93.2 Estimated GFR > 60 Random Glucose 101 Calcium 9.3 D Magnesium 1.9 Albumin 3.5 Triglycerides 61 Physical Exam 2 Vital Signs: Vital Signs: Last Vital Signs Temp 96.9 F 01/29/23 07:59 Pulse 66 01/29/23 07:59 Resp 18 01/29/23 07:59 BP 132/61 01/29/23 07:59 Pulse Ox 99 01/29/23 07:59 O2 Del Method Room Air 01/29/23 07:59 BMI result Body Mass Index 15.6 Const: General: cooperative HEENT: Head: Yes normal to inspection Face and sinus: Yes normal facial exam Mouth: Normal oral and palatal mucosa present Teeth and gingiva: d entition normal Eyes: General: appearance normal, both eyes and all related structures P upils: Equal, round and reactive pupils present Resp: Effort & Inspection: normal respiratory effort Cardio: Rate: regular rate Rhythm: regular rhythm GI: Palpation (GI): Soft to palpation and nontender : General: Yes no CVA tenderness Back/Spine/Pelvis: Back: no CVA tenderness Skin: General skin exam: no rashes or lesions noted Neuro: General: moves all extremities Cranial nerves: Yes Equal, round and reactive pupils present Extrem: General: Yes normal to inspection Psych: Appearance: grossly normal Assessment and Plan Assessment and plan (1) Clostridium difficile colitis: Problem details: She reports some improvement. Status: Acute Assessment and Plan: Cdiff Plan for Dificid 200 mg bid for 10 days If not covered po Vancomycin 250 qid for 10 days and then taper 125 tid one week,125 bid one week,125 daily one week,125 every other day for a week and then po Vancomycin 125 mg every ,W,Fri indefinitely. (2) Malnutrition: Status: Acute (3) Crohn's disease: Status: Acute (4) Pyoderma gangrenosum: Status: Acute Time Spent With Patient Time: Total time managing care of this patient today ____ minutes.
[2023-01-29 16:13] LABS: Glucose, Whole Blood 106 mg/dL (60-115)
[2023-01-29] MEDS: Heparin Sodium,Porcine Flush 50 UNITS/5 ML SYRINGE IVFLUSH (16:25)
[2023-01-29 16:54] LABS: CRP High Sensitivity >10.0 mg/L
[2023-01-29 20:03] VITALS: BP 162/81; PULSE 79; RESP 18; TEMP 36.9; O2SAT 99
[2023-01-29] MEDS: Parenteral Nutrition 1,200 ML 50 ML IV (21:32)
[2023-01-29 23:52] VITALS: BP 164/72; PULSE 56; RESP 16; TEMP 36.1; O2SAT 99
[2023-01-30] MEDS: HYDROmorphone HCl 1 MG/ML SYRINGE IVPUSH ×7 (01:29→21:05)
[2023-01-30] MEDS: Heparin Sodium,Porcine Flush 50 UNITS/5 ML SYRINGE IVFLUSH ×2 (01:29→17:56)
[2023-01-30] MEDS: 0.9 % Sodium Chloride Flush 3 ML SYRINGE IVFLUSH ×4 (01:30→15:09)
[2023-01-30] MEDS: Dextrose 5 % and 0.9 % NaCl 1,000 ML 100 ML IVCONT (04:45)
[2023-01-30] MEDS: methylPREDNISolone Sod Succ 40 MG/ML VIAL 20 MG IVPUSH (06:25)
[2023-01-30 06:50] LABS: Anion Gap 13 (12-20); Blood Urea Nitrogen 8 mg/dL (9-16); Calcium 9.2 mg/dL (8.4-10.2); Carbon Dioxide 20 mmol/L (22-29); Chloride 109 mmol/L (96-108); Creatinine Clr Calc Pharmacy 93.2; Estimated Glomerular Filt Rate > 60; Glucose Random 100 mg/dL (60-115); Potassium 4.4 mmol/L (3.3-5.1); Sodium 138 mmol/L (135-145)
[2023-01-30] MEDS: Mesalamine 250 MG CAPSULE.ER 500 MG PO ×3 (07:33→21:06)
[2023-01-30 07:44] VITALS: BP 136/80; PULSE 63; RESP 16; TEMP 36.7; O2SAT 100
[2023-01-30 09:27] LABS: Albumin Level 3.4 g/dL (3.5-5.0); Magnesium 2.1 mg/dL (1.6-2.6); Triglycerides 50 mg/dL (<150)
--- NOTE | 2023-01-30 09:44 | MHC.SHP ---
Pre-Procedural Eval Section A Date of Service: 01/30/23 The patient is an INPATIENT: Yes The History & Physical has been completed within 30 days and I have reviewed it.: Yes Section B Chief Complaint: Abdominal pain Allergies: Allergies Allergy/AdvReac Type Severity Reaction Status Date / Time vancomycin Allergy Anaphylaxis Verified 01/12/23 08:38 Plan Diagnosis/Plan: Unchanged I have reviewed the history and physical and performed a pertinent physical examination on my patient. No changes have occurred unless specified. egd with ileoscopy Time Spent With Patient Time: Total time managing care of this patient today ____ minutes.
--- NOTE | 2023-01-30 10:05 | PC.NURSE ---
report given from floor nurse to mark swift rn. patient going directly into endoscopy room for procedure per [facility] . urine is negative.
--- NOTE | 2023-01-30 10:22 | HO.ANESPROP2 ---
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 History of small bowel obstruction Crohn's disease Family History Family history of problems with anesthesia: No Surgical History Surgical History H/O colectomy History of Problems with Anesthesia: No Social History Social History Household Members: None Housing: Apartment Do you presently have visiting nurse or other home services: No Alcohol intake: never Patient Tobacco Use Status: Current everyday Tobacco user Tobacco use type: Cigarette Cigarette Packs Per Day: 6 Cigarettes Per Day: 120.0 Smoked in Last 30 Days: No Patient Interested in Nicotine Replacement: No Use of substances other than those prescribed or required for medical reasons: No Substance Use Type: Marijuana Currently Displaying Signs/Symptoms of Drug Intoxication Withdrawal: No Have you been hit, kicked, punched, or otherwise hurt by someone within the past year? If so, by whom?: No Do you feel safe in your current relationship?: No Current Relationship Is there a partner from a previous relationship who is making you feel unsafe now?: No Are you made to feel afraid or neglected: No Advance Directives: No Advance Directives Information Provided: Yes Do you have thoughts of harming others: None Do you have a plan to hurt others: No Plan Recently lost weight without trying: Yes How much weight loss: 2-13 pounds Eating poorly because of decreased appetite: No Nutrition screen score: 3 Nutrition Risks: Poor intake 0-25% >4 days Patient : No : No Poor oral hygiene: No service: No Meds Allergies Allergy/AdvReac Type Severity Reaction Status Date / Time vancomycin Allergy Anaphylaxis Verified 01/12/23 08:38 Active Medications: Current Medications Acetaminophen (Acetaminophen 325 Mg Tablet) 650 mg PO Q6H PRN PRN Reason: Pain, Mild (Pain Scale 1-3) Lipase/Protease/Amylase (Lipase/Prot/Amylase 12/38/60k Capsule.Dr) 1 cap PO TIDWM [facility] Last Admin: 01/30/23 08:41 Dose: Not Given Cholestyramine Resin (Cholestyramine (With Sugar) 4 Gm Powd.Pack) 4 gm PO BIDWM [facility] Last Admin: 01/30/23 07:14 Dose: Not Given Fidaxomicin (Fidaxomicin 200 Mg Tablet) 200 mg PO BID [facility] Last Admin: 01/30/23 07:33 Dose: 200 mg Heparin Sodium (Porcine) (Heparin Sodium,Porcine Flush 50 Units/5 Ml Syringe) 50 units IVFLUSH QSHIFT [facility] Last Admin: 01/30/23 07:44 Dose: Not Given Hydromorphone HCl (Hydromorphone Hcl 1 Mg/Ml Syringe) 1 mg IVPUSH Q3H PRN; Protocol PRN Reason: Pain, Moderate(Pain Scale 4-6) Last Admin: 01/30/23 07:33 Dose: 1 mg Dextrose/Sodium Chloride (D5ns) 1,000 mls @ 100 mls/hr IVCONT .Q10H [facility] Last Admin: 01/30/23 04:45 Dose: 100 mls/hr Nutrition (Parenteral) (Parenteral Nutrition) 1,200 mls @ 50 mls/hr IV .Q24H [facility]; Protocol Stop: 01/30/23 20:59 Last Admin: 01/29/23 21:32 Dose: 50 mls/hr Nutrition (Parenteral) (Parenteral Nutrition) 1,200 mls @ 50 mls/hr IV .Q24H [facility]; Protocol Stop: 01/31/23 20:59 Mesalamine (Mesalamine 250 Mg Capsule.Er) 500 mg PO TID [facility] Last Admin: 01/30/23 07:33 Dose: 500 mg Methylprednisolone Sodium Succinate (Methylprednisolone Sod Succ 40 Mg/Ml Vial) 20 mg IVPUSH Q8H [facility] Last Admin: 01/30/23 06:25 Dose: 20 mg Ondansetron HCl (Ondansetron Hcl 4 Mg/2 Ml Vial) 4 mg IVPUSH Q8H PRN PRN Reason: Nausea and Vomiting Last Admin: 01/28/23 14:58 Dose: 4 mg Pharmacy Consult (Consult Rx Parenteral Nutrition Ordering) 1 each MISCELLANE DAILY PRN PRN Reason: Consult order Sodium Chloride (0.9 % Sodium Chloride Flush 3 Ml Syringe) 3 ml IVFLUSH [facility] Last Admin: 01/30/23 07:14 Dose: Not Given Sodium Chloride (0.9 % Sodium Chloride Flush 3 Ml Syringe) 3 ml IVFLUSH [facility] Last Admin: 01/30/23 07:33 Dose: 3 ml Exam Exam Date and Time: January 30, 2023 1022 Height,Weight and Vital Signs: Height 5 ft 2 in Weight 38.7 kg Last Vital Signs Temp 98.0 F 01/30/23 07:44 Pulse 63 01/30/23 07:44 Resp 16 01/30/23 07:44 BP 136/80 01/30/23 07:44 Pulse Ox 100 01/30/23 07:44 O2 Del Method Room Air 01/30/23 07:44 Pertinent Lab Results Pertinent Lab Results: Laboratory Tests 01/27/23 01/27/23 01/27/23 11:15 16:43 18:36 WBC 12.7 H RBC 6.53 H Hgb 12.4 Hct 42.9 MCV 65.7 L MCH 19.0 L MCHC 28.9 L RDW 28.8 H Plt Count 402 H MPV Not Reportable Immature Gran % (Auto) 0.3 Neut % (Auto) 70.5 Lymph % (Auto) 22.9 [place] % (Auto) 4.7 Eos % (Auto) 1.3 Baso % (Auto) 0.3 Lymph # (Auto) 2.9 [place] # (Auto) 0.6 Eos # (Auto) 0.2 Baso # (Auto) 0.0 Abs Immat Gran (auto) 0.04 H Absolute Neuts (auto) 9.0 H Absolute Nucleated RBC 0.000 Nucleated RBC % (auto) 0.0 ESR 16 Hold Purple Top Sodium 141 Potassium 4.1 Chloride 102 Carbon Dioxide 24 Anion Gap 19 BUN 9 Creatinine 0.67 Estim Creat Clear Calc 70.9 Estimated GFR > 60 POC Glucose Random Glucose 83 Calcium 10.9 H D Magnesium Total Bilirubin 0.4 AST 27 ALT 14 Alkaline Phosphatase 81 C-React Prot High Sens >10.0 H Total Protein 10.1 H Albumin 5.0 Triglycerides Beta HCG, Quant < 2 Urine Test Urine Opiates Screen POSITIVE H Urine Fentanyl Screen Not Detected Ur Barbiturates Screen Not Detected Ur Phencyclidine Scrn Not Detected Ur Amphetamines Screen Not Detected U Benzodiazepines Scrn Not Detected Urine Cocaine Screen Not Detected U Marijuana (THC) Screen POSITIVE H C. difficile Tox B Gene POSITIVE A* C. difficile Toxin A&B Negative C. difficile Interpret SEE NOTE 01/29/23 01/29/23 01/30/23 06:14 16:09 06:23 WBC RBC Hgb Hct MCV MCH MCHC RDW Plt Count MPV Immature Gran % (Auto) Neut % (Auto) Lymph % (Auto) [place] % (Auto) Eos % (Auto) Baso % (Auto) Lymph # (Auto) [place] # (Auto) Eos # (Auto) Baso # (Auto) Abs Immat Gran (auto) Absolute Neuts (auto) Absolute Nucleated RBC Nucleated RBC % (auto) ESR Hold Purple Top SEE NOTE SEE NOTE Sodium 138 138 Potassium 4.1 4.4 Chloride 108 109 H Carbon Dioxide 24 20 L Anion Gap 10 L 13 BUN 8 L 8 L Creatinine 0.51 0.51 Estim Creat Clear Calc 93.2 93.2 Estimated GFR > 60 > 60 POC Glucose 106 Random Glucose 101 100 Calcium 9.3 D 9.2 Magnesium 1.9 2.1 Total Bilirubin AST ALT Alkaline Phosphatase C-React Prot High Sens Total Protein Albumin 3.5 3.4 L Triglycerides 61 50 Beta HCG, Quant Urine Test Urine Opiates Screen Urine Fentanyl Screen Ur Barbiturates Screen Ur Phencyclidine Scrn Ur Amphetamines Screen U Benzodiazepines Scrn Urine Cocaine Screen U Marijuana (THC) Screen C. difficile Tox B Gene C. difficile Toxin A&B C. difficile Interpret 01/30/23 09:01 WBC RBC Hgb Hct MCV MCH MCHC RDW Plt Count MPV Immature Gran % (Auto) Neut % (Auto) Lymph % (Auto) [place] % (Auto) Eos % (Auto) Baso % (Auto) Lymph # (Auto) [place] # (Auto) Eos # (Auto) Baso # (Auto) Abs Immat Gran (auto) Absolute Neuts (auto) Absolute Nucleated RBC Nucleated RBC % (auto) ESR Hold Purple Top Sodium Potassium Chloride Carbon Dioxide Anion Gap BUN Creatinine Estim Creat Clear Calc Estimated GFR POC Glucose Random Glucose Calcium Magnesium Total Bilirubin AST ALT Alkaline Phosphatase C-React Prot High Sens Total Protein Albumin Triglycerides Beta HCG, Quant Urine Test NEGATIVE Urine Opiates Screen Urine Fentanyl Screen Ur Barbiturates Screen Ur Phencyclidine Scrn Ur Amphetamines Screen U Benzodiazepines Scrn Urine Cocaine Screen U Marijuana (THC) Screen C. difficile Tox B Gene C. difficile Toxin A&B C. difficile Interpret Airway Mallampati Class: II TM Dist: >3cm Neck ROM: Limited Denture: Upper Assessment and Plan Assessment Anesthesia Assessment: Anesthesia Plan Discussed and Chart Reviewed Final Anesthetic Review Family History of Problems with Anesthesia: No History of Problems with Anesthesia: No NPO: Yes ASA Class: III Final Preanesthetic Review: No Changes in Pt Med Stat, Meds/Allgs Chart Reviewed, Consent Obtained/Reviewed and Anes Risks/Benef Reviewed Patient Risk: Intermediate Procedure Risk: Low Anesthetic Plan Anesthetic Plan: MAC: Disposition: Standard PACU
--- NOTE | 2023-01-30 10:49 | MHC.CLN ---
F/U PT IS SEVERELY MALNOURISHED PO INTAKE 100% DIET RX: REGULAR-APPROPRIATE PT RECEIVING ENSURE MAX PROTEIN BID PROVIDES 300 KCALS, 60 G PROTEIN WITH 100% ACCEPTANCE TPN CONTINUES DUE TO MALNUTRITION, CROHNS FLARE, C-DIFF, AND MALABSORPTION REVIEWED LABS; DISCUSSED WITH PHARMACY RECOMMEND CONTINUE TPN AT MAX GOAL RATE 50ML/HR PROVIDES 1202 TOTAL KCALS (31.1 KCAL/KG), 180 G DEXTROSE, 60 G PROTEIN (1.55 G/KG) AND 35 G LIPIDS REPLETE LYTES NEEDED MONITOR PO INTAKE CLOSELY
[2023-01-30 10:57] LABS: Phosphorus 3.9 mg/dL (2.7-4.5)
--- NOTE | 2023-01-30 11:01 | W.PM.OPN ---
Operative Note Operative Note Date of Service: 01/30/23 Narrative: Procedure Description: EGD and ileoscopy Indication: crohns and abdominal pain Anesthesia: MAC FLEXIBLE TRANSORAL UPPER GASTROINTESTINAL ENDOSCOPY AND ILEOSCOPY UPPER ENDOSCOPY Consent: Indications for the procedure and potential complications of bleeding, perforation, reaction to medications and missed diagnosis were discussed with the patient and informed consent was obtained. Instrument: Olympus GIF H 190 J mid size upper endoscope Monitoring: Vital signs and clinical assessment, continuous EKG monitoring, Pulse oximetry, Carbon Dioxide monitoring and blood pressure monitoring were done throughout the procedure. Procedure: The patient was placed in the left lateral decubitis position and pre-procedure medications were administered and a bite block was placed. The endoscope was inserted into the mouth and advanced under direct vision to the third part of duodenum. A careful inspection was made as the upper endoscope was withdrawn including a retroflexed examination of the proximal stomach; Findings and interventions are described below. Findings: Larynx:normal Esophagus: GE junction at 38 cm, diaphragm hiatus at 38 cm, no varices or esophagitis. Stomach: Patchy gastric erythema. Biopsies were obtained. Grade 2 flap valve on retroflexed examination of the cardia. Duodenum: Normal bulb and descending duodenum, bx taken Scope was withdrawn and then the stoma was intubated. Patchy erythema with edema was noted consistent with mid to moderate enteritis, bx were taken Intervention: Biopsies as noted above Impression/Findings: gastritis enteritis PLAN: cont with current treatment regimen, cimzia PA is pending
[2023-01-30 11:05] VITALS: BP 146/82; PULSE 59; RESP 16; TEMP 36.9; O2SAT 100
[2023-01-30 11:20] VITALS: BP 157/87; PULSE 55; RESP 20; TEMP 37.4; O2SAT 100
[2023-01-30 12:00] VITALS: BP 127/58; PULSE 71; RESP 17; TEMP 36.4; O2SAT 100
--- NOTE | 2023-01-30 15:19 | HO.PM.IMPN ---
Subjective Subjective Date of Service: 01/30/23 Interval History: seen and examined this morning follow up for diarrhea, FTT frustrated and wants to eat still reporting diarrhea frequently Review of Systems Review of Systems: Yes all other systems are reviewed and are negative Constitutional Constitutional: Denies chills and Denies fever(s) Cardiovascular Cardiovascular: Denies chest pain, Denies palpitations and Denies dyspnea Respiratory Respiratory: Denies cough and Denies dyspnea Gastrointestinal Gastrointestinal: Reports abdominal pain and Reports diarrhea Endocrine Endocrine: Denies palpitations Physical Exam Vital Signs: Vital Signs: Last Vital Signs Temp 97.6 F 01/30/23 12:00 Pulse 71 01/30/23 12:00 Resp 17 01/30/23 12:00 BP 127/58 L 01/30/23 12:00 Pulse Ox 100 01/30/23 12:00 O2 Del Method Room Air 01/30/23 12:00 BMI result Body Mass Index 15.6 Const: Other: thin, awake, alert Nutritional Appearance: thin Orientation/consciousness: patient oriented x3 Resp: Effort & Inspection: normal respiratory effort, able to speak in complete sentences, no respiratory distress and no use of accessory muscles Cardio: Rate: regular rate GI: Other: attempted to palpate abdomen, barely made contact with skin and patient shouted for me to stop; ostomy present Skin: Other: bandage right lower extremity c/d/i Neuro: General: patient oriented x3, moves all extremities and CN's II-XI intact bilaterally Objective Data Active Medications Acetaminophen (Acetaminophen 325 Mg Tablet) 650 mg PO Q6H PRN PRN Reason: Pain, Mild (Pain Scale 1-3) Lipase/Protease/Amylase (Lipase/Prot/Amylase 12/38/60k Capsule.) 1 cap PO TIDWM [facility] Last Admin: 01/30/23 12:50 Dose: 1 cap Documented By: RENETTA Cholestyramine Resin (Cholestyramine (With Sugar) 4 Gm Powd.Pack) 4 gm PO BIDWM [facility] Last Admin: 01/30/23 07:14 Dose: Not Given Documented By: RENETTA Non-Admin Reason: NPO Ferrous Sulfate (Ferrous Sulfate 324 Mg Tablet.) 324 mg PO DAILY [facility] Fidaxomicin (Fidaxomicin 200 Mg Tablet) 200 mg PO BID [facility] Last Admin: 01/30/23 07:33 Dose: 200 mg Documented By: RENETTA Heparin Sodium (Porcine) (Heparin Sodium,Porcine Flush 50 Units/5 Ml Syringe) [facility] Last Admin: 01/30/23 15:09 Dose: Not Given Documented By: RENETTA Non-Admin Reason: IV Running Hydromorphone HCl (Hydromorphone Hcl 1 Mg/Ml Syringe) 1 mg IVPUSH Q3H PRN; Protocol PRN Reason: Pain, Moderate(Pain Scale 4-6) Last Admin: 01/30/23 15:04 Dose: 1 mg Documented By: RENETTA Dextrose/Sodium Chloride (D5ns) 1,000 mls @ 100 mls/hr IVCONT .Q10H [facility] Last Admin: 01/30/23 04:45 Dose: 100 mls/hr Documented By: PEYTON Nutrition (Parenteral) (Parenteral Nutrition) 1,200 mls @ 50 mls/hr IV .Q24H [facility]; Protocol Stop: 01/30/23 20:59 Last Admin: 01/29/23 21:32 Dose: 50 mls/hr Documented By: PEYTON Nutrition (Parenteral) (Parenteral Nutrition) 1,200 mls @ 50 mls/hr IV .Q24H [facility]; Protocol Stop: 01/31/23 20:59 Mesalamine (Mesalamine 250 Mg Capsule.Er) 500 mg PO TID [facility] Last Admin: 01/30/23 15:05 Dose: 500 mg Documented By: RENETTA Ondansetron HCl (Ondansetron Hcl 4 Mg/2 Ml Vial) 4 mg IVPUSH Q8H PRN PRN Reason: Nausea and Vomiting Last Admin: 01/28/23 14:58 Dose: 4 mg Documented By: RAJAN Ondansetron HCl (Ondansetron Odt 4 Mg Tab.Rapdis) 4 mg TRANSLINGU Q6H PRN PRN Reason: nausea and vomiting Pharmacy Consult (Consult Rx Parenteral Nutrition Ordering) 1 each MISCELLANE DAILY PRN PRN Reason: Consult order Prednisone (Prednisone 10 Mg Tablet) 40 mg PO DAILY [facility]; Taper Stop: 02/27/23 11:54 Last Admin: 01/30/23 12:50 Dose: 40 mg Documented By: RENETTA Sodium Chloride (0.9 % Sodium Chloride Flush 3 Ml Syringe) 3 ml IVFLUSH QSHIFT [facility] Last Admin: 01/30/23 15:09 Dose: Not Given Documented By: RENETTA Non-Admin Reason: Duplicate Order Sodium Chloride (0.9 % Sodium Chloride Flush 3 Ml Syringe) 3 ml IVFLUSH QSHIFT [facility] Last Admin: 01/30/23 15:09 Dose: 3 ml Documented By: RENETTA Labs 01/27/23 11:15 01/30/23 06:23 Labs: Laboratory Results - last 24 hr 01/27/23 01/29/23 01/30/23 11:15 16:09 06:23 Hold Purple Top SEE NOTE Anion Gap 13 Estim Creat Clear Calc 93.2 Estimated GFR > 60 POC Glucose 106 Random Glucose 100 Calcium 9.2 Phosphorus 3.9 Magnesium 2.1 C-React Prot High Sens >10.0 H Albumin 3.4 L Triglycerides 50 Urine Test 01/30/23 09:01 Hold Purple Top Anion Gap Estim Creat Clear Calc Estimated GFR POC Glucose Random Glucose Calcium Phosphorus Magnesium C-React Prot High Sens Albumin Triglycerides Urine Test NEGATIVE Assessment and Plan (1) Clostridium difficile colitis: Status: Acute (2) Malnutrition: Status: Acute (3) Pyoderma gangrenosum: Status: Acute (4) Crohn's disease: Status: Acute Plan This is a 37 year old women with hx of Crohns disease s/p colectomy and colostomy, recent admission for acute crohns flare who presents with with watery diarrhea more than 10 times a day. Crohns disease with acute flare abd CT> generalized bowel wall thickening and fluid distension concerning for underlying inflammatory process Cdiff tox B gene positive, being treated as c dif - on dificid fo 10 days (if not covered can do po vanco with taper) initially treated with IV solumedrol, transitioned to po prednisone continue questran 4gm BID, Pentasa 500mg TID cimzia PA pending, previously on as outpatient PICC line placed 01/28 and started on TPN for nutrition GI following - s/p EGD 01/30 showing gastritis, enteritis- bx obtained follow path report CDIFF continue to treat with Dificid ID following pyoderma gangrenosa acute on chronic Wound Care following> patient wants to do her own dressing and she is capable, cleans wound, apply xerform, abd pain and kerlix Severe protein calorie malnutrition able to eat but having watery stool with every meal s/p PICC line, 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 Barraza Full code Continued hospital stay for tx of crohns flare Time Spent With Patient Time: Total time managing care of this patient today ____ minutes. Quality Stroke Does the patient have a stroke diagnosis?: No VTE Prior VTE?: No VTE Risk Level:: Medical - moderate - high VTE Device Contraindication: N/A - Device Ordered VTE Drug Contraindication: Treatment Not Indicated
[2023-01-30 20:00] VITALS: BP 168/79; PULSE 75; RESP 18; TEMP 36.5; O2SAT 98
[2023-01-31] MEDS: HYDROmorphone HCl 1 MG/ML SYRINGE IVPUSH ×2 (00:04→03:03)
[2023-01-31] MEDS: Heparin Sodium,Porcine Flush 50 UNITS/5 ML SYRINGE IVFLUSH (00:04)
[2023-01-31 03:55] VITALS: BP 160/44; PULSE 56; RESP 20; TEMP 36.4; O2SAT 99
[2023-01-31 07:48] LABS: Albumin Level 3.2 g/dL (3.5-5.0); Anion Gap 14 (12-20); Blood Urea Nitrogen 11 mg/dL (9-16); Calcium 8.8 mg/dL (8.4-10.2); Carbon Dioxide 22 mmol/L (22-29); Chloride 110 mmol/L (96-108); Creatinine Clr Calc Pharmacy 93.2; Estimated Glomerular Filt Rate > 60; Glucose Random 70 mg/dL (60-115); Magnesium 2.1 mg/dL (1.6-2.6); Potassium 3.8 mmol/L (3.3-5.1); Sodium 142 mmol/L (135-145); Triglycerides 118 mg/dL (<150)
[2023-01-31 08:00] VITALS: BP 129/65; PULSE 68; RESP 16; TEMP 36.3; O2SAT 99
--- NOTE | 2023-01-31 08:44 | HO.POSTANES ---
Post Anesthesia Evaluation Post Anesthesia Evaluation Date of Service: 01/31/23 Vital Signs: Vital Signs Temp Pulse Resp BP Pulse Ox O2 Del Method 01/31/23 03:55 97.5 F 56 20 160/44 H 99 Room Air Anesthesia: Monitored Mental Status: Awake Pain Control: Satisfactory Nausea/Vomiting: None Hydration: Adequate Anesthesia-Related Issues: No Anes. Related Issues
[2023-01-31] MEDS: Mesalamine 250 MG CAPSULE.ER 500 MG PO ×3 (09:04→20:52)
[2023-01-31] MEDS: 0.9 % Sodium Chloride Flush 3 ML SYRINGE IVFLUSH ×2 (09:05→15:06)
[2023-01-31 09:26] LABS: Phosphorus 3.6 mg/dL (2.7-4.5)
--- NOTE | 2023-01-31 09:41 | MHC.CLN ---
F/U PO INTAKE APPEARS TO BE 75-100%. EX. ATE FRUIT, [place]DI[place] TOAST AND RDZ APPROX 80% THIS AM. DIET RX: REGULAR-APPROPRIATE. PT RECEIVING ENSURE MAX PROTEIN BID. PROVIDES 300 KCALS, 60 G PROTEIN WITH 100% ACCEPTANCE. TPN CONTINUES DUE TO MALNUTRITION, CROHNS FLARE, C-DIFF, AND MALABSORPTION. REVIEWED LABS; DISCUSSED WITH PHARMACY. RECOMMEND CONTINUE TPN AT MAX GOAL RATE 50ML/HR. PROVIDES 1202 TOTAL KCALS (31.1 KCAL/KG), 180 G DEXTROSE, 60 G PROTEIN (1.55 G/KG) AND 35 G LIPIDS. REPLETE LYTES NEEDED. MONITOR PO INTAKE CLOSELY.
[2023-01-31 10:21] VITALS: O2SAT 99
--- NOTE | 2023-01-31 15:01 | HO.PM.IMPN ---
Subjective Subjective Date of Service: 01/31/23 Interval History: seen and examined this morning follow up for crohns flare, cdif, abdominal pain still with abdominal pain, stool soft but still requiring changing ostomy appliance numerous times daily Review of Systems Review of Systems: Yes all other systems are reviewed and are negative Constitutional Constitutional: Denies chills and Denies fever(s) Physical Exam Vital Signs: Vital Signs: Last Vital Signs Temp 97.3 F 01/31/23 08:00 Pulse 68 01/31/23 08:00 Resp 16 01/31/23 08:00 BP 129/65 01/31/23 08:00 Pulse Ox 99 01/31/23 10:21 O2 Del Method Room Air 01/31/23 10:21 BMI result Body Mass Index 15.6 Const: Other: thin, awake, alert General: comfortable and no acute distress Nutritional Appearance: underweight Orientation/consciousness: patient oriented x3 Resp: Effort & Inspection: normal respiratory effort, able to speak in complete sentences, no respiratory distress and no use of accessory muscles Auscultation: clear to auscultation bilaterally Cardio: Rate: regular rate GI: Other: attempted to palpate abdomen, barely made contact with skin and patient shouted for me to stop; ostomy present Skin: Other: right right lower extremity Neuro: General: patient oriented x3, moves all extremities and CN's II-XI intact bilaterally Objective Data Active Medications Acetaminophen (Acetaminophen 325 Mg Tablet) 650 mg PO Q6H PRN PRN Reason: Pain, Mild (Pain Scale 1-3) Lipase/Protease/Amylase (Lipase/Prot/Amylase 12/38/60k Capsule.) 1 cap PO TIDWM [facility] Last Admin: 01/31/23 12:05 Dose: 1 cap Documented By: RENETTA Cholestyramine Resin (Cholestyramine (With Sugar) 4 Gm Powd.Pack) 4 gm PO BIDWM [facility] Last Admin: 01/31/23 09:05 Dose: Not Given Documented By: RENETTA Non-Admin Reason: Patient Refused Ferrous Sulfate (Ferrous Sulfate 324 Mg Tablet.) 324 mg PO DAILY [facility] Last Admin: 01/31/23 09:04 Dose: 324 mg Documented By: RENETTA Fidaxomicin (Fidaxomicin 200 Mg Tablet) 200 mg PO BID [facility] Last Admin: 01/31/23 09:04 Dose: 200 mg Documented By: RENETTA Heparin Sodium (Porcine) (Heparin Sodium,Porcine Flush 50 Units/5 Ml Syringe) 50 units IVFLUSH QSHIFT [facility] Last Admin: 01/31/23 09:05 Dose: Not Given Documented By: RENETTA Non-Admin Reason: IV Running Heparin Sodium (Porcine) (Heparin Sodium,Porcine 5,000 Unit/Ml Vial) 5,000 unit SUBCUT Q12H [facility] Last Admin: 01/31/23 03:16 Dose: Not Given Documented By: PEYTON Non-Admin Reason: Patient Refused Hydromorphone HCl (Hydromorphone Hcl 1 Mg/Ml Syringe) 1 mg IVPUSH Q3H PRN; Protocol PRN Reason: Pain, Moderate(Pain Scale 4-6) Last Admin: 01/31/23 12:05 Dose: 1 mg Documented By: RENETTA Dextrose/Sodium Chloride (D5ns) 1,000 mls @ 100 mls/hr IVCONT .Q10H [facility] Last Admin: 01/31/23 12:05 Dose: 100 mls/hr Documented By: RENETTA Nutrition (Parenteral) (Parenteral Nutrition) 1,200 mls @ 50 mls/hr IV .Q24H [facility]; Protocol Stop: 01/31/23 20:59 Last Admin: 01/30/23 21:11 Dose: 50 mls/hr Documented By: PEYTON Nutrition (Parenteral) (Parenteral Nutrition) 1,200 mls @ 50 mls/hr IV .Q24H [facility]; Protocol Stop: 02/01/23 20:59 Mesalamine (Mesalamine 250 Mg Capsule.Er) 500 mg PO TID [facility] Last Admin: 01/31/23 09:04 Dose: 500 mg Documented By: RENETTA Omeprazole (Omeprazole 20 Mg Capsule.Dr) 20 mg PO DAILY@0630 [facility] Last Admin: 01/31/23 06:02 Dose: 20 mg Documented By: PEYTON Ondansetron HCl (Ondansetron Hcl 4 Mg/2 Ml Vial) 4 mg IVPUSH Q8H PRN PRN Reason: Nausea and Vomiting Last Admin: 01/28/23 14:58 Dose: 4 mg Documented By: RAJAN Ondansetron HCl (Ondansetron Odt 4 Mg Tab.Rapdis) 4 mg TRANSLINGU Q6H PRN PRN Reason: nausea and vomiting Pharmacy Consult (Consult Rx Parenteral Nutrition Ordering) 1 each MISCELLANE DAILY PRN PRN Reason: Consult order Prednisone (Prednisone 10 Mg Tablet) 40 mg PO DAILY [facility]; Taper Stop: 02/27/23 11:54 Last Admin: 01/31/23 09:04 Dose: 40 mg Documented By: RENETTA Sodium Chloride (0.9 % Sodium Chloride Flush 3 Ml Syringe) 3 ml IVFLUSH [facility] Last Admin: 01/31/23 07:43 Dose: Not Given Documented By: RENETTA Non-Admin Reason: Duplicate Order Sodium Chloride (0.9 % Sodium Chloride Flush 3 Ml Syringe) 3 ml IVFLUSH QSMIFT [facility] Last Admin: 01/31/23 09:05 Dose: 3 ml Documented By: RENETTA Labs 01/31/23 06:15 01/31/23 06:15 Labs: Laboratory Results - last 24 hr 01/31/23 06:15 MCV 66.6 L MCH 19.3 L MCHC 29.0 L RDW 27.0 H Plt Count 308 MPV Not Reportable Absolute Nucleated RBC 0.000 Nucleated RBC % (auto) 0.0 Anion Gap 14 Estim Creat Clear Calc 93.2 Estimated GFR > 60 Random Glucose 70 Calcium 8.8 Phosphorus 3.6 Magnesium 2.1 Albumin 3.2 L Triglycerides 118 Assessment and Plan (1) Clostridium difficile colitis: Status: Acute (2) Pyoderma gangrenosum: Status: Acute (3) Crohn's disease: Status: Acute Plan This is a 37 year old women with hx of Crohns disease s/p colectomy and colostomy, recent admission for acute crohns flare who presents with with watery diarrhea more than 10 times a day. Crohns disease with acute flare abd CT> generalized bowel wall thickening and fluid distension concerning for underlying inflammatory process Cdiff tox B gene positive, being treated as c dif - on dificid for 10 days per ID (if not covered can do po vanco with taper) initially treated with IV solumedrol, transitioned to po prednisone continue questran 4gm BID, Pentasa 500mg TID cimzia PA pending, previously on as outpatient PICC line placed 01/28 and started on TPN for nutrition GI following - s/p EGD 01/30 showing gastritis, enteritis- started on low dose PPI, bx obtained path report negative for h.pylori CDIFF continue to treat with Dificid as above ID following 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 Wound Care following> patient wants to do her own dressing and she is capable, cleans wound, apply xerform, abd pain and kerlix follow up discussion with wound care - can use dakin solution and clean things off with wet to dry for any necrotic tissue no debridement indicated as this typically makes pyoderma worse chronic microcytic anemia h/o iron deficiency drop in H/H likely dilutional, no evidence of acute blood loss continue po iron replacement Severe protein calorie malnutrition able to eat but having persistent high output s/p PICC line, 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 Harry Full code Continued hospital stay for tx of crohns flare Time Spent With Patient Time: Total time managing care of this patient today ____ minutes. Quality Stroke Does the patient have a stroke diagnosis?: No VTE Prior VTE?: No VTE Risk Level:: Medical - moderate - high VTE Device Contraindication: N/A - Device Ordered VTE Drug Contraindication: Treatment Not Indicated
[2023-01-31 15:30] VITALS: BP 169/93; PULSE 75; RESP 18; TEMP 36.1; O2SAT 99
[2023-01-31 19:39] VITALS: BP 155/65; PULSE 89; RESP 14; TEMP 36.1; O2SAT 98
[2023-02-01 03:40] VITALS: BP 135/70; PULSE 65; RESP 16; TEMP 36.6; O2SAT 99
[2023-02-01 06:05] LABS: PLT ABN DIST 1; Red Cell Distribution Width 27.2 % (11.0-16.0)
[2023-02-01 06:07] LABS: Hematocrit 32.2 % (37.0-47.0); Hemoglobin 9.2 g/dl (12.0-16.0); Mean Corpuscular HGB Conc 28.6 g/dl (31.0-35.0); Mean Corpuscular Hemoglobin 19.2 pg (27.0-33.0); Mean Corpuscular Volume 67.2 fL (80.0-98.0); Platelet Count 326 X10*3/uL (160-400); Red Blood Count 4.79 X10*6/uL (4.20-5.50); White Blood Count 11.8 X10*3/uL (4.8-10.8)
[2023-02-01 06:19] LABS: Albumin Level 3.4 g/dL (3.5-5.0); Triglycerides 172 mg/dL (<150)
[2023-02-01 06:20] LABS: Anion Gap 15 (12-20); Blood Urea Nitrogen 14 mg/dL (9-16); Calcium 9.2 mg/dL (8.4-10.2); Carbon Dioxide 23 mmol/L (22-29); Chloride 106 mmol/L (96-108); Creatinine Clr Calc Pharmacy 83.3; Estimated Glomerular Filt Rate > 60; Glucose Random 77 mg/dL (60-115); Magnesium 2.2 mg/dL (1.6-2.6); Potassium 3.9 mmol/L (3.3-5.1); Sodium 140 mmol/L (135-145)
[2023-02-01 07:22] VITALS: BP 138/67; RESP 18; TEMP 36.6; O2SAT 100
[2023-02-01 10:00] VITALS: O2SAT 100
--- NOTE | 2023-02-01 15:14 | HO.PM.IMPN ---
Subjective Subjective Date of Service: 02/01/23 Interval History: seen and examined this morning follow up for cdif, Crohns flare no overnight events reporting mild abdominal pain, able to tolerate majority of meals Review of Systems Review of Systems: Yes all other systems are reviewed and are negative Constitutional Constitutional: Denies chills and Denies fever(s) Cardiovascular Cardiovascular: Denies chest pain and Denies dyspnea Respiratory Respiratory: Denies cough and Denies dyspnea Physical Exam Vital Signs: Vital Signs: Last Vital Signs Temp 97.8 F 02/01/23 07:22 Pulse 65 02/01/23 03:40 Resp 18 02/01/23 07:22 BP 138/67 02/01/23 07:22 Pulse Ox 100 02/01/23 10:00 O2 Del Method Room Air 02/01/23 10:00 BMI result Body Mass Index 15.6 Const: Other: thin, awake, alert General: comfortable and no acute distress Nutritional Appearance: thin and underweight Orientation/consciousness: patient oriented x3 Resp: Effort & Inspection: normal respiratory effort, able to speak in complete sentences, no respiratory distress and no use of accessory muscles Auscultation: clear to auscultation bilaterally Cardio: Rate: regular rate GI: Other: ostomy present - minimal output, but just changed per patient Inspection: No distended Skin: Other: similar to yesterday Neuro: General: patient oriented x3, moves all extremities and CN's II-XI intact bilaterally Extrem: General: Yes no pedal edema Objective Data Active Medications Acetaminophen (Acetaminophen 325 Mg Tablet) 650 mg PO Q6H PRN PRN Reason: Pain, Mild (Pain Scale 1-3) Lipase/Protease/Amylase (Lipase/Prot/Amylase 12/38/60k Capsule.) 1 cap PO TIDWM [facility] Last Admin: 02/01/23 11:52 Dose: 1 cap Documented By: SOLANGE Cholestyramine Resin (Cholestyramine (With Sugar) 4 Gm Powd.Pack) 4 gm PO BIDWM [facility] Last Admin: 02/01/23 09:08 Dose: Not Given Documented By: SOLANGE Non-Admin Reason: Patient Refused Ferrous Sulfate (Ferrous Sulfate 324 Mg Tablet.) 324 mg PO DAILY [facility] Last Admin: 02/01/23 08:53 Dose: 324 mg Documented By: SOLANGE Fidaxomicin (Fidaxomicin 200 Mg Tablet) 200 mg PO BID [facility] Last Admin: 02/01/23 08:53 Dose: 200 mg Documented By: SOLANGE Heparin Sodium (Porcine) (Heparin Sodium,Porcine Flush 50 Units/5 Ml Syringe) 50 units IVFLUSH QSHIFT [facility] Last Admin: 02/01/23 15:00 Dose: 50 units Documented By: SOLANGE Heparin Sodium (Porcine) (Heparin Sodium,Porcine 5,000 Unit/Ml Vial) 5,000 unit SUBCUT Q12H [facility] Last Admin: 01/31/23 21:03 Dose: Not Given Documented By: BAKARI Non-Admin Reason: Patient Refused Hydromorphone HCl (Hydromorphone Hcl 1 Mg/Ml Syringe) 1 mg IVPUSH Q3H PRN; Protocol PRN Reason: Pain, Moderate(Pain Scale 4-6) Last Admin: 02/01/23 14:53 Dose: 1 mg Documented By: SOLANGE Nutrition (Parenteral) (Parenteral Nutrition) 1,200 mls @ 50 mls/hr IV .Q24H [facility]; Protocol Stop: 02/01/23 20:59 Last Admin: 01/31/23 20:54 Dose: 50 mls/hr Documented By: BAKARI Nutrition (Parenteral) (Parenteral Nutrition) 1,200 mls @ 50 mls/hr IV .Q24H [facility]; Protocol Stop: 02/02/23 20:59 Mesalamine (Mesalamine 250 Mg Capsule.Er) 500 mg PO TID [facility] Last Admin: 02/01/23 14:53 Dose: 500 mg Documented By: SOLANGE Omeprazole (Omeprazole 20 Mg Capsule.Dr) 20 mg PO DAILY@0630 [facility] Last Admin: 02/01/23 05:58 Dose: 20 mg Documented By: BAKARI Ondansetron HCl (Ondansetron Hcl 4 Mg/2 Ml Vial) 4 mg IVPUSH Q8H PRN PRN Reason: Nausea and Vomiting Last Admin: 01/28/23 14:58 Dose: 4 mg Documented By: RAJAN Ondansetron HCl (Ondansetron Odt 4 Mg Tab.Rapdis) 4 mg TRANSLINGU Q6H PRN PRN Reason: nausea and vomiting Pharmacy Consult (Consult Rx Parenteral Nutrition Ordering) 1 each MISCELLANE DAILY PRN PRN Reason: Consult order Prednisone (Prednisone 10 Mg Tablet) 40 mg PO DAILY [facility]; Taper Stop: 02/27/23 11:54 Last Admin: 02/01/23 09:07 Dose: 40 mg Documented By: SOLANGE Sodium Chloride (0.9 % Sodium Chloride Flush 3 Ml Syringe) 3 ml IVFLUSH QSHIFT [facility] Last Admin: 02/01/23 15:00 Dose: 3 ml Documented By: SOLANGE Sodium Chloride (0.9 % Sodium Chloride Flush 3 Ml Syringe) 3 ml IVFLUSH QSHIFT [facility] Last Admin: 02/01/23 15:00 Dose: 3 ml Documented By: SOLANGE Labs 02/01/23 05:39 02/01/23 05:39 Labs: Laboratory Results - last 24 hr 02/01/23 05:39 MCV 67.2 L MCH 19.2 L MCHC 28.6 L RDW 27.2 H Plt Count 326 MPV Not Reportable Absolute Nucleated RBC 0.000 Nucleated RBC % (auto) 0.0 Anion Gap 15 Estim Creat Clear Calc 83.3 Estimated GFR > 60 Random Glucose 77 Calcium 9.2 Phosphorus 4.0 Magnesium 2.2 Albumin 3.4 L Triglycerides 172 H Assessment and Plan (1) Clostridium difficile colitis: Status: Acute (2) Malnutrition: Status: Acute (3) Pyoderma gangrenosum: Status: Acute (4) Crohn's disease: Status: Acute Plan This is a 37 year old women with hx of Crohns disease s/p colectomy and colostomy, recent admission for acute crohns flare who presents with with watery diarrhea more than 10 times a day. Crohns disease with acute flare abd CT> generalized bowel wall thickening and fluid distension concerning for underlying inflammatory process Cdiff tox B gene positive, being treated as c dif - on dificid for 10 days per ID (if not covered can do po vanco with taper) initially treated with IV solumedrol, transitioned to po prednisone continue questran 4gm BID, Pentasa 500mg TID cimzia PA pending, previously on as outpatient PICC line placed 01/28 and started on TPN for nutrition GI following - s/p EGD 01/30 showing gastritis, enteritis- started on low dose PPI, bx obtained path report negative for h.pylori CDIFF continue to treat with Dificid as above ID following 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 Wound Care following> patient wants to do her own dressing and she is capable, cleans wound, apply xerform, abd pain and kerlix follow up discussion with wound care - can use dakin solution and clean things off with wet to dry for any necrotic tissue no debridement indicated as this typically makes pyoderma worse chronic microcytic anemia h/o iron deficiency drop in H/H likely dilutional, no evidence of acute blood loss continue po iron replacement Severe protein calorie malnutrition able to eat but having persistent high output s/p PICC line, 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 Grant Full code Continued hospital stay for tx of crohns flare Time Spent With Patient Time: Total time managing care of this patient today ____ minutes. Quality Stroke Does the patient have a stroke diagnosis?: No VTE Prior VTE?: No VTE Risk Level:: Medical - moderate - high VTE Device Contraindication: N/A - Device Ordered VTE Drug Contraindication: Treatment Not Indicated
[2023-02-01 15:22] VITALS: BP 129/68; PULSE 81; RESP 16; TEMP 36.2; O2SAT 98
[2023-02-01 19:12] VITALS: BP 128/77; PULSE 97; RESP 14; TEMP 36.6; O2SAT 99
[2023-02-02 03:42] VITALS: BP 130/60; PULSE 68; RESP 16; TEMP 36; O2SAT 99
[2023-02-02 06:55] LABS: Albumin Level 3.6 g/dL (3.5-5.0); Phosphorus 3.9 mg/dL (2.7-4.5); Triglycerides 125 mg/dL (<150)
[2023-02-02 06:57] LABS: Anion Gap 15 (12-20); Blood Urea Nitrogen 16 mg/dL (9-16); Calcium 9.2 mg/dL (8.4-10.2); Carbon Dioxide 25 mmol/L (22-29); Chloride 101 mmol/L (96-108); Creatinine Clr Calc Pharmacy 84.8; Estimated Glomerular Filt Rate > 60; Glucose Random 77 mg/dL (60-115); Magnesium 2.3 mg/dL (1.6-2.6); Potassium 3.9 mmol/L (3.3-5.1); Sodium 137 mmol/L (135-145)
[2023-02-02 07:35] VITALS: BP 124/56; RESP 16; TEMP 36.9; O2SAT 99
--- NOTE | 2023-02-02 14:09 | HO.PM.IMPN ---
Subjective Subjective Date of Service: 02/02/23 Interval History: seen and examined this morning follow up for Crohns flare continues to need to change colostomy bag multiple times daily Review of Systems Review of Systems: Yes all other systems are reviewed and are negative Constitutional Constitutional: Denies chills and Denies fever(s) Cardiovascular Cardiovascular: Denies chest pain and Denies palpitations Endocrine Endocrine: Denies palpitations Physical Exam Vital Signs: Vital Signs: Last Vital Signs Temp 98.5 F 02/02/23 07:35 Pulse 68 02/02/23 03:42 Resp 16 02/02/23 07:35 BP 124/56 L 02/02/23 07:35 Pulse Ox 99 02/02/23 07:35 O2 Del Method Room Air 02/02/23 09:40 BMI result Body Mass Index 15.6 Const: Other: thin, awake, alert General: comfortable and no acute distress Nutritional Appearance: thin and underweight Orientation/consciousness: patient oriented x3 Resp: Effort & Inspection: normal respiratory effort, able to speak in complete sentences, no respiratory distress and no use of accessory muscles Auscultation: clear to auscultation bilaterally Cardio: Rate: regular rate GI: Other: colostomy present- soft stool Inspection: No distended Palpation (GI): no guarding Skin: Other: similar to yesterday Neuro: General: patient oriented x3, moves all extremities and CN's II-XI intact bilaterally Extrem: General: Yes no pedal edema Objective Data Active Medications Acetaminophen (Acetaminophen 325 Mg Tablet) 650 mg PO Q6H PRN PRN Reason: Pain, Mild (Pain Scale 1-3) Lipase/Protease/Amylase (Lipase/Prot/Amylase 12/38/60k Capsule.) 1 cap PO TIDWM [facility] Last Admin: 02/02/23 11:46 Dose: 1 cap Documented By: SOLANGE Cholestyramine Resin (Cholestyramine (With Sugar) 4 Gm Powd.Pack) 4 gm PO BIDWM [facility] Last Admin: 02/02/23 08:57 Dose: Not Given Documented By: SOLANGE Non-Admin Reason: pt refused Ferrous Sulfate (Ferrous Sulfate 324 Mg Tablet.) 324 mg PO DAILY [facility] Last Admin: 02/02/23 08:45 Dose: 324 mg Documented By: SOLANGE Fidaxomicin (Fidaxomicin 200 Mg Tablet) 200 mg PO BID [facility] Stop: 02/07/23 10:44 Last Admin: 02/02/23 08:45 Dose: 200 mg Documented By: SOLANGE Heparin Sodium (Porcine) (Heparin Sodium,Porcine Flush 50 Units/5 Ml Syringe) 50 units IVFLUSH QSHIFT [facility] Last Admin: 02/02/23 08:45 Dose: 50 units Documented By: SOLANGE Heparin Sodium (Porcine) (Heparin Sodium,Porcine 5,000 Unit/Ml Vial) 5,000 unit SUBCUT Q12H [facility] Last Admin: 02/02/23 03:02 Dose: Not Given Documented By: BAKARI Non-Admin Reason: Patient Refused Hydromorphone HCl (Hydromorphone Hcl 1 Mg/Ml Syringe) 1 mg IVPUSH Q3H PRN; Protocol PRN Reason: Pain, Moderate(Pain Scale 4-6) Last Admin: 02/02/23 11:46 Dose: 1 mg Documented By: SOLANGE Nutrition (Parenteral) (Parenteral Nutrition) 1,200 mls @ 50 mls/hr IV .Q24H [facility]; Protocol Stop: 02/02/23 20:59 Last Admin: 02/01/23 20:42 Dose: 50 mls/hr Documented By: BAKARI Nutrition (Parenteral) (Parenteral Nutrition) 1,200 mls @ 50 mls/hr IV .Q24H [facility]; Protocol Stop: 02/03/23 20:59 Mesalamine (Mesalamine 250 Mg Capsule.Er) 500 mg PO TID [facility] Last Admin: 02/02/23 08:45 Dose: 500 mg Documented By: SOLANGE Omeprazole (Omeprazole 20 Mg Capsule.Dr) 20 mg PO DAILY@0630 [facility] Last Admin: 02/02/23 05:51 Dose: 20 mg Documented By: BAKARI Ondansetron HCl (Ondansetron Hcl 4 Mg/2 Ml Vial) 4 mg IVPUSH Q8H PRN PRN Reason: Nausea and Vomiting Last Admin: 01/28/23 14:58 Dose: 4 mg Documented By: RAJAN Ondansetron HCl (Ondansetron Odt 4 Mg Tab.Rapdis) 4 mg TRANSLINGU Q6H PRN PRN Reason: nausea and vomiting Pharmacy Consult (Consult Rx Parenteral Nutrition Ordering) 1 each MISCELLANE DAILY PRN PRN Reason: Consult order Prednisone (Prednisone 10 Mg Tablet) 40 mg PO DAILY [facility]; Taper Stop: 02/27/23 11:54 Last Admin: 02/02/23 08:45 Dose: 40 mg Documented By: SOLANGE Sodium Chloride (0.9 % Sodium Chloride Flush 3 Ml Syringe) 3 ml IVFLUSH QSHIFT [facility] Last Admin: 02/02/23 08:53 Dose: 3 ml Documented By: SOLANGE Sodium Chloride (0.9 % Sodium Chloride Flush 3 Ml Syringe) 3 ml IVFLUSH QSHIFT [facility] Last Admin: 02/02/23 08:53 Dose: 3 ml Documented By: SOLANGE Labs 02/01/23 05:39 02/02/23 06:15 Labs: Laboratory Results - last 24 hr 02/02/23 06:15 Hold Purple Top SEE NOTE Anion Gap 15 Estim Creat Clear Calc 84.8 Estimated GFR > 60 Random Glucose 77 Calcium 9.2 Phosphorus 3.9 Magnesium 2.3 Albumin 3.6 Triglycerides 125 Assessment and Plan (1) Clostridium difficile colitis: Status: Acute (2) Malnutrition: Status: Acute (3) Pyoderma gangrenosum: Status: Acute (4) Crohn's disease: Status: Acute Plan This is a 37 year old women with hx of Crohns disease s/p colectomy and colostomy, recent admission for acute crohns flare who presents with with watery diarrhea more than 10 times a day. Crohns disease with acute flare abd CT> generalized bowel wall thickening and fluid distension concerning for underlying inflammatory process Cdiff tox B gene positive, being treated as c dif - on dificid for 10 days per ID (if not covered can do po vanco with taper) initially treated with IV solumedrol, transitioned to po prednisone continue questran 4gm BID, Pentasa 500mg TID cimzia JOSE pending, previously on as outpatient PICC line placed 01/28 and started on TPN for nutrition GI following - s/p EGD 01/30 showing gastritis, enteritis- started on low dose PPI, bx obtained path report negative for h.pylori CDIFF continue to treat with Dificid as above ID following 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 Wound Care following> patient wants to do her own dressing and she is capable, cleans wound, apply xerform, abd pain and kerlix follow up discussion with wound care - can use dakin solution and clean things off with wet to dry for any necrotic tissue no debridement indicated as this typically makes pyoderma worse chronic microcytic anemia h/o iron deficiency drop in H/H likely dilutional, no evidence of acute blood loss continue po iron replacement Severe protein calorie malnutrition able to eat but having persistent high output s/p PICC line, now on TPN 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 Barraza Full code Continued hospital stay for tx of crohns flare, TPN Time Spent With Patient Time: Total time managing care of this patient today ____ minutes. Quality Stroke Does the patient have a stroke diagnosis?: No VTE Prior VTE?: No VTE Risk Level:: Medical - moderate - high VTE Device Contraindication: N/A - Device Ordered VTE Drug Contraindication: Treatment Not Indicated
--- NOTE | 2023-02-02 14:57 | PM.CNGS ---
History of Present Illness Consult details Consult date: 02/02/23 Requesting physician: Moni Menjivar Narrative: The pt is a 37 year old female with Crohn's disease and shelter hx of pyoderma of right leg. Was followed by wound care office in [place] and she manages her own dressings. At times it is very improved but other times not good - she takes biologics in the past for her Crohs and it helps her leg. She is now moved to this area and needs help with her dressing orders and care. She is currently in the hospital with Gi issues and C diff. 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 History of small bowel obstruction Crohn's disease Family History Family history: reviewed and not pertinent Surgical History Surgical History H/O colectomy Social History Social History Household Members: None Housing: Apartment Do you presently have visiting nurse or other home services: No Alcohol intake: never Patient Tobacco Use Status: Current everyday Tobacco user Tobacco use type: Cigarette Cigarette Packs Per Day: 6 Cigarettes Per Day: 120.0 Smoked in Last 30 Days: No Patient Interested in Nicotine Replacement: No Use of substances other than those prescribed or required for medical reasons: No Substance Use Type: Marijuana Currently Displaying Signs/Symptoms of Drug Intoxication Withdrawal: No Have you been hit, kicked, punched, or otherwise hurt by someone within the past year? If so, by whom?: No Do you feel safe in your current relationship?: No Current Relationship Is there a partner from a previous relationship who is making you feel unsafe now?: No Are you made to feel afraid or neglected: No Advance Directives: No Advance Directives Information Provided: Yes Do you have thoughts of harming others: None Do you have a plan to hurt others: No Plan Recently lost weight without trying: Yes How much weight loss: 2-13 pounds Eating poorly because of decreased appetite: No Nutrition screen score: 3 Nutrition Risks: Poor intake 0-25% >4 days Patient : No : No Poor oral hygiene: No service: No Meds Allergies Allergy/AdvReac Type Severity Reaction Status Date / Time vancomycin Allergy Anaphylaxis Verified 01/12/23 08:38 Active Medications: Current Medications Acetaminophen (Acetaminophen 325 Mg Tablet) 650 mg PO Q6H PRN PRN Reason: Pain, Mild (Pain Scale 1-3) Lipase/Protease/Amylase (Lipase/Prot/Amylase 12/38/60k Capsule.) 1 cap PO TIDWM [facility] Last Admin: 02/02/23 11:46 Dose: 1 cap Cholestyramine Resin (Cholestyramine (With Sugar) 4 Gm Powd.Pack) 4 gm PO BIDWM [facility] Last Admin: 02/02/23 08:57 Dose: Not Given Ferrous Sulfate (Ferrous Sulfate 324 Mg Tablet.) 324 mg PO DAILY [facility] Last Admin: 02/02/23 08:45 Dose: 324 mg Fidaxomicin (Fidaxomicin 200 Mg Tablet) 200 mg PO BID [facility] Stop: 02/07/23 10:44 Last Admin: 02/02/23 08:45 Dose: 200 mg Heparin Sodium (Porcine) (Heparin Sodium,Porcine Flush 50 Units/5 Ml Syringe) 50 units IVFLUSH QSHIFT [facility] Last Admin: 02/02/23 14:51 Dose: 50 units Heparin Sodium (Porcine) (Heparin Sodium,Porcine 5,000 Unit/Ml Vial) 5,000 unit SUBCUT Q12H [facility] Last Admin: 02/02/23 03:02 Dose: Not Given Hydromorphone HCl (Hydromorphone Hcl 1 Mg/Ml Syringe) 1 mg IVPUSH Q3H PRN; Protocol PRN Reason: Pain, Moderate(Pain Scale 4-6) Last Admin: 02/02/23 14:50 Dose: 1 mg Nutrition (Parenteral) (Parenteral Nutrition) 1,200 mls @ 50 mls/hr IV .Q24H [facility]; Protocol Stop: 02/02/23 20:59 Last Admin: 02/01/23 20:42 Dose: 50 mls/hr Nutrition (Parenteral) (Parenteral Nutrition) 1,200 mls @ 50 mls/hr IV .Q24H [facility]; Protocol Stop: 02/03/23 20:59 Mesalamine (Mesalamine 250 Mg Capsule.Er) 500 mg PO TID [facility] Last Admin: 02/02/23 14:51 Dose: 500 mg Omeprazole (Omeprazole 20 Mg Capsule.Dr) 20 mg PO DAILY@0630 [facility] Last Admin: 02/02/23 05:51 Dose: 20 mg Ondansetron HCl (Ondansetron Hcl 4 Mg/2 Ml Vial) 4 mg IVPUSH Q8H PRN PRN Reason: Nausea and Vomiting Last Admin: 01/28/23 14:58 Dose: 4 mg Ondansetron HCl (Ondansetron Odt 4 Mg Tab.Rapdis) 4 mg TRANSLINGU Q6H PRN PRN Reason: nausea and vomiting Pharmacy Consult (Consult Rx Parenteral Nutrition Ordering) 1 each MISCELLANE DAILY PRN PRN Reason: Consult order Prednisone (Prednisone 10 Mg Tablet) 40 mg PO DAILY [facility]; Taper Stop: 02/27/23 11:54 Last Admin: 02/02/23 08:45 Dose: 40 mg Sodium Chloride (0.9 % Sodium Chloride Flush 3 Ml Syringe) 3 ml IVFLUSH QSALFT [facility] Last Admin: 02/02/23 14:55 Dose: 3 ml Sodium Chloride (0.9 % Sodium Chloride Flush 3 Ml Syringe) 3 ml IVFLUSH QSALFT [facility] Last Admin: 02/02/23 14:55 Dose: 3 ml Physical Exam Vital Signs: Vital Signs: Last Vital Signs Temp 98.5 F 02/02/23 07:35 Pulse 68 02/02/23 03:42 Resp 16 02/02/23 07:35 BP 124/56 L 02/02/23 07:35 Pulse Ox 99 02/02/23 07:35 O2 Del Method Room Air 02/02/23 09:40 BMI result Body Mass Index 15.6 Const: General: cooperative, healthy appearing, comfortable and no acute distress Skin: Other: right lower leg is almost completely circumferentially affected with ulcerated open areas which are generaly clean and pink but with drainage. the medial area has some eschar spots pt is thin and legs are thin but rest of skin looks healthy the left leg is normal. Results Labs 02/01/23 05:39 02/02/23 06:15 Labs: BMP 02/02/23 06:15 Sodium 137 Potassium 3.9 Chloride 101 Carbon Dioxide 25 BUN 16 Creatinine 0.56 Calcium 9.2 Liver Function 02/02/23 Range/Units 06:15 Albumin 3.6 (3.5-5.0) g/dL Urine 01/30/23 Range/Units 09:01 Urine Test NEGATIVE (NEGATIVE) All other labs normal. Assessment and Plan (1) Pyoderma gangrenosum: Status: Acute Plan pyoderma gangrenosum of the right lower extremity for years - pt seems to know a lot about her disease and does good care. she uses polymembrane she says not as familiar with that product here. keep the area clean - use xeroform as now doing will order santyl for the eschar areas. when pt dc home she can fu with us at the wound care clinic and we can order her supplies. Would also be good to get some notes from her care at previous clinic. she understands and agrees with plan also if Crohns disease flares down most likely skin lesions will follow. Time Spent With Patient Time: Total time managing care of this patient today ____ minutes. Procedures Date of Service Date of Service: 02/02/23
[2023-02-02 15:32] VITALS: BP 128/60; PULSE 77; RESP 16; TEMP 36; O2SAT 99
[2023-02-02 20:00] VITALS: BP 130/62; PULSE 65; RESP 18; TEMP 36.8; O2SAT 98
[2023-02-03 03:03] VITALS: BP 128/65; PULSE 80; RESP 18; TEMP 36.2; O2SAT 99
[2023-02-03 07:38] VITALS: BP 115/56; PULSE 69; RESP 16; TEMP 36.8; O2SAT 97
--- NOTE | 2023-02-03 09:42 | MHC.CLN ---
F/U PO INTAKE APPEARS TO BE 75-100%. DIET RX: REGULAR-APPROPRIATE. PT RECEIVING ENSURE MAX PROTEIN BID. PROVIDES 300 KCALS, 60 G PROTEIN WITH 100% ACCEPTANCE. TPN CONTINUES DUE TO MALNUTRITION, CROHNS FLARE, C-DIFF, AND MALABSORPTION. REVIEWED LABS; DISCUSSED WITH PHARMACY. RECOMMEND CONTINUE TPN AT MAX GOAL RATE 50 ML/HR. PROVIDES 1202 TOTAL KCALS (31.1 KCAL/KG), 180 G DEXTROSE, 60 G PROTEIN (1.55 G/KG) AND 35 G LIPIDS. REPLETE LYTES NEEDED. MONITOR PO INTAKE CLOSELY.
--- NOTE | 2023-02-03 10:42 | HO.PM.IMPN ---
Subjective Subjective Date of Service: 02/03/23 <Claire Valdes NP - Last Filed: 02/03/23 10:56> 02/03/23 <Adeola Harry MD - Last Filed: 02/03/23 16:47> Interval History: seen and examined this morning follow up for Crohns flare continues to need to change colostomy bag multiple times daily <Claire Valdes NP - Last Filed: 02/03/23 10:56> Review of Systems Review of Systems: Yes all other systems are reviewed and are negative <Claire Valdes NP - Last Filed: 02/03/23 10:56> Constitutional Constitutional: Denies chills and Denies fever(s) <Claire Valdes NP - Last Filed: 02/03/23 10:56> Cardiovascular Cardiovascular: Denies chest pain and Denies palpitations <Claire Valdes NP - Last Filed: 02/03/23 10:56> Endocrine Endocrine: Denies palpitations <Claire Valdes NP - Last Filed: 02/03/23 10:56> Physical Exam Vital Signs: Vital Signs: Last Vital Signs Temp 98.2 F 02/03/23 07:38 Pulse 69 02/03/23 07:38 Resp 16 02/03/23 07:38 BP 115/56 L 02/03/23 07:38 Pulse Ox 97 02/03/23 07:38 O2 Del Method Room Air 02/03/23 10:00 BMI result Body Mass Index 15.6 <Claire Valdes NP - Last Filed: 02/03/23 10:56> Appearing in no acute distress lung sounds are clear to auscultation heart regular rate rhythm, clear S1, S2 positive bowel sounds, abdomen is soft, nontender, ileostomy neuro patient is alert x3, no focal deficits <Claire Valdes NP - Last Filed: 02/03/23 10:56> Objective Data Active Medications Acetaminophen (Acetaminophen 325 Mg Tablet) 650 mg PO Q6H PRN PRN Reason: Pain, Mild (Pain Scale 1-3) Lipase/Protease/Amylase (Lipase/Prot/Amylase 12/38/60k Capsule.) 1 cap PO TIDWM [facility] Last Admin: 02/03/23 09:11 Dose: 1 cap Documented By: VALERIANO Cholestyramine Resin (Cholestyramine (With Sugar) 4 Gm Powd.Pack) 4 gm PO BIDWM [facility] Last Admin: 02/03/23 08:10 Dose: Not Given Documented By: VALERIANO Non-Admin Reason: Patient Refused Collagenase (Collagenase Clostridium Hist. 30 Gm Tube) 1 appl TOPICAL DAILY [facility]; Protocol Last Admin: 02/03/23 09:10 Dose: 1 appl Documented By: VALERIANO Ferrous Sulfate (Ferrous Sulfate 324 Mg Tablet.) 324 mg PO DAILY [facility] Last Admin: 02/03/23 09:11 Dose: 324 mg Documented By: VALERIANO Fidaxomicin (Fidaxomicin 200 Mg Tablet) 200 mg PO BID [facility] Stop: 02/07/23 10:44 Last Admin: 02/03/23 09:11 Dose: 200 mg Documented By: VALERIANO Heparin Sodium (Porcine) (Heparin Sodium,Porcine Flush 50 Units/5 Ml Syringe) 50 units IVFLUSH QSHIFT [facility] Last Admin: 02/03/23 09:11 Dose: 50 units Documented By: VALERIANO Heparin Sodium (Porcine) (Heparin Sodium,Porcine 5,000 Unit/Ml Vial) 5,000 unit SUBCUT Q12H [facility] Last Admin: 02/03/23 00:05 Dose: Not Given Documented By: BAKARI Non-Admin Reason: Patient Refused Hydromorphone HCl (Hydromorphone Hcl 0.5 Mg/0.5 Ml Syringe) 1 mg IVPUSH Q3H PRN; Protocol PRN Reason: Pain, Severe (Pain Scale 7-10) Last Admin: 02/03/23 09:10 Dose: 1 mg Documented By: VALERIANO Nutrition (Parenteral) (Parenteral Nutrition) 1,200 mls @ 50 mls/hr IV .Q24H [facility]; Protocol Stop: 02/03/23 20:59 Last Admin: 02/02/23 20:33 Dose: 50 mls/hr Documented By: BAKARI Mesalamine (Mesalamine 250 Mg Capsule.Er) 500 mg PO TID [facility] Last Admin: 02/03/23 09:11 Dose: 500 mg Documented By: VALERIANO Omeprazole (Omeprazole 20 Mg Capsule.) 20 mg PO DAILY@0630 [facility] Last Admin: 02/03/23 06:00 Dose: 20 mg Documented By: BAKARI Ondansetron HCl (Ondansetron Hcl 4 Mg/2 Ml Vial) 4 mg IVPUSH Q8H PRN PRN Reason: Nausea and Vomiting Last Admin: 01/28/23 14:58 Dose: 4 mg Documented By: RAJAN Ondansetron HCl (Ondansetron Odt 4 Mg Tab.Rapdis) 4 mg TRANSLINGU Q6H PRN PRN Reason: nausea and vomiting Pharmacy Consult (Consult Rx Parenteral Nutrition Ordering) 1 each MISCELLANE DAILY PRN PRN Reason: Consult order Prednisone (Prednisone 10 Mg Tablet) 40 mg PO DAILY [facility]; Taper Stop: 02/27/23 11:54 Last Admin: 02/03/23 09:11 Dose: 40 mg Documented By: VALERIANO Sodium Chloride (0.9 % Sodium Chloride Flush 3 Ml Syringe) 3 ml IVFLUSH [facility] Last Admin: 02/03/23 08:57 Dose: Not Given Documented By: SEKOU Non-Admin Reason: See Note Sodium Chloride (0.9 % Sodium Chloride Flush 3 Ml Syringe) 3 ml IVFLUSH [facility] Last Admin: 02/03/23 08:57 Dose: Not Given Documented By: SEKOU Non-Admin Reason: See Note <Claire Valdes NP - Last Filed: 02/03/23 10:56> Labs CBC & Chem 7: 02/01/23 05:39 02/03/23 09:24 <Claire Valdes NP - Last Filed: 02/03/23 10:56> Assessment and Plan (1) Clostridium difficile colitis: Status: Acute <Claire Valdes NP - Last Filed: 02/03/23 10:56> (2) Malnutrition: Status: Acute <Claire Valdes NP - Last Filed: 02/03/23 10:56> (3) Pyoderma gangrenosum: Status: Acute <Claire Valdes NP - Last Filed: 02/03/23 10:56> (4) Crohn's disease: Status: Acute <Claire Valdes NP - Last Filed: 02/03/23 10:56> Assessment and Plan: This is a 37 year old women with hx of Crohns disease s/p colectomy and colostomy, recent admission for acute crohns flare who presents with with watery diarrhea more than 10 times a day. Crohns disease with acute flare abd CT> generalized bowel wall thickening and fluid distension concerning for underlying inflammatory process initially treated with IV solumedrol, transitioned to po prednisone continue questran 4gm BID, Pentasa 500mg TID cimzia being sent from mail order pharmacy PICC line placed 01/28 and started on TPN for nutrition GI following - s/p EGD 01/30 showing gastritis, enteritis- started on low dose PPI, bx obtained path report negative for h.pylori CDIFF Cdiff tox B gene positive, on dificid for 10 days per ID ID following 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 Wound Care following> patient wants to do her own dressing and she is capable, cleans wound, apply xerform, abd pain and kerlix follow up discussion with wound care - can use dakin solution and clean things off with wet to dry for any necrotic tissue no debridement indicated as this typically makes pyoderma worse chronic microcytic anemia h/o iron deficiency drop in H/H likely dilutional, no evidence of acute blood loss continue po iron replacement Severe protein calorie malnutrition able to eat but having persistent high output s/p PICC line, now on TPN Nutrition/patternmaker all around following possible chronic pancreatitis continue creon TID DVT prophylaxis heparin subQ Attending Dr. Harry Full code Continued hospital stay for tx of crohns flare, TPN <Claire Valdes NP - Last Filed: 02/03/23 10:56> Time Spent With Patient Time: Total time managing care of this patient today ____ minutes. <Claire Valdes NP - Last Filed: 02/03/23 10:56> Quality Stroke Does the patient have a stroke diagnosis?: No <Claire Valdes NP - Last Filed: 02/03/23 10:56> VTE Prior VTE?: No <Claire Valdes NP - Last Filed: 02/03/23 10:56> VTE Risk Level:: Medical - moderate - high <JENIFER Reddy Last Filed: 02/03/23 10:56> VTE Device Contraindication: N/A - Device Ordered <JENIFER Reddy Last Filed: 02/03/23 10:56> VTE Drug Contraindication: Treatment Not Indicated <JENIFER Reddy Last Filed: 02/03/23 10:56>
[2023-02-03 15:53] VITALS: BP 130/60; PULSE 79; RESP 18; TEMP 36.3; O2SAT 98
--- NOTE | 2023-02-03 17:30 | PC.NURSE ---
Contact precautions maintained. Pt informed to contact pharmacy that [employer] stated. per pt pharmacy has no information on pt. pt stated she goes to [facility] on [address] for current pharmacy. PT refusing some meds stating she doesnt need them.
[2023-02-03 19:46] VITALS: BP 110/55; PULSE 77; RESP 16; TEMP 36.2; O2SAT 98
[2023-02-03 23:30] VITALS: BP 101/58; PULSE 81; RESP 18; TEMP 36.1; O2SAT 99
[2023-02-04 07:22] VITALS: BP 124/60; PULSE 74; RESP 16; TEMP 36.1; O2SAT 99
[2023-02-04 07:38] LABS: Anion Gap 16 (12-20); Blood Urea Nitrogen 17 mg/dL (9-16); Calcium 9.5 mg/dL (8.4-10.2); Carbon Dioxide 26 mmol/L (22-29); Chloride 99 mmol/L (96-108); Creatinine Clr Calc Pharmacy 89.6; Estimated Glomerular Filt Rate > 60; Glucose Random 89 mg/dL (60-115); Magnesium 2.3 mg/dL (1.6-2.6); Phosphorus 3.8 mg/dL (2.7-4.5); Potassium 3.9 mmol/L (3.3-5.1); Sodium 137 mmol/L (135-145); Triglycerides 80 mg/dL (<150)
[2023-02-04 09:19] VITALS: O2SAT 98
--- NOTE | 2023-02-04 10:31 | P.PNIM_ITS ---
Subjective Subjective Date of Service: 02/04/23 <Claire Valdes NP - Last Filed: 02/04/23 10:39> 02/23/23 <Eric Babcock MD - Last Filed: 02/23/23 10:06> Interval History: seen and examined this morning follow up for Crohns flare Doing better, still with pain to left upper abd <Claire Valdes NP - Last Filed: 02/04/23 10:39> Review of Systems Review of Systems: Yes all other systems are reviewed and are negative <Claire Valdes NP - Last Filed: 02/04/23 10:39> Constitutional Constitutional: Denies chills and Denies fever(s) <Claire Valdes NP - Last Filed: 02/04/23 10:39> Cardiovascular Cardiovascular: Denies chest pain and Denies palpitations <Claire Valdes NP - Last Filed: 02/04/23 10:39> Endocrine Endocrine: Denies palpitations <Claire Valdes NP - Last Filed: 02/04/23 10:39> Physical Exam 2 Vital Signs: Vital Signs: Last Vital Signs Temp 96.9 F 02/04/23 07:22 Pulse 74 02/04/23 07:22 Resp 16 02/04/23 07:22 BP 124/60 02/04/23 07:22 Pulse Ox 98 02/04/23 09:19 O2 Del Method Room Air 02/04/23 09:19 BMI result Body Mass Index 15.6 <Claire Valdes NP - Last Filed: 02/04/23 10:39> Appearing in no acute distress lung sounds are clear to auscultation heart regular rate rhythm, clear S1, S2 positive bowel sounds, abdomen is soft, nontender, illeostomy neuro patient is alert x3, no focal deficits <Claire Valdes NP - Last Filed: 02/04/23 10:39> Objective Data Active Medications Acetaminophen (Acetaminophen 325 Mg Tablet) 650 mg PO Q6H PRN PRN Reason: Pain, Mild (Pain Scale 1-3) Lipase/Protease/Amylase (Lipase/Prot/Amylase 12/38/60k Capsule.) 1 cap PO TIDWM [facility] Last Admin: 02/04/23 09:03 Dose: 1 cap Documented By: SELAM Cholestyramine Resin (Cholestyramine (With Sugar) 4 Gm Powd.Pack) 4 gm PO BIDWM [facility] Last Admin: 02/04/23 09:08 Dose: Not Given Documented By: SELAM Non-Admin Reason: Patient Refused Collagenase (Collagenase Clostridium Hist. 30 Gm Tube) 1 appl TOPICAL DAILY [facility]; Protocol Last Admin: 02/03/23 09:10 Dose: 1 appl Documented By: VALERIANO Ferrous Sulfate (Ferrous Sulfate 324 Mg Tablet.) 324 mg PO DAILY [facility] Last Admin: 02/04/23 09:03 Dose: 324 mg Documented By: SELAM Fidaxomicin (Fidaxomicin 200 Mg Tablet) 200 mg PO BID [facility] Stop: 02/07/23 10:44 Last Admin: 02/04/23 09:03 Dose: 200 mg Documented By: SELAM Heparin Sodium (Porcine) (Heparin Sodium,Porcine Flush 50 Units/5 Ml Syringe) 50 units IVFLUSH QSHIFT [facility] Last Admin: 02/04/23 09:04 Dose: 50 units Documented By: SELAM Heparin Sodium (Porcine) (Heparin Sodium,Porcine 5,000 Unit/Ml Vial) 5,000 unit SUBCUT Q12H [facility] Last Admin: 02/04/23 05:46 Dose: Not Given Documented By: SANTANA Non-Admin Reason: Patient Refused Hydromorphone HCl (Hydromorphone Hcl 0.5 Mg/0.5 Ml Syringe) 1 mg IVPUSH Q4H PRN; Protocol PRN Reason: Pain, Severe (Pain Scale 7-10) Last Admin: 02/04/23 09:59 Dose: 1 mg Documented By: SELAM Nutrition (Parenteral) (Parenteral Nutrition) 1,200 mls @ 50 mls/hr IV .Q24H [facility]; Protocol Stop: 02/04/23 20:59 Last Admin: 02/03/23 20:38 Dose: 50 mls/hr Documented By: SANTANA Mesalamine (Mesalamine 250 Mg Capsule.Er) 500 mg PO TID [facility] Last Admin: 02/04/23 09:03 Dose: 500 mg Documented By: SELAM Omeprazole (Omeprazole 20 Mg Capsule.) 20 mg PO DAILY@0630 [facility] Last Admin: 02/04/23 06:00 Dose: 20 mg Documented By: SANTANA Ondansetron HCl (Ondansetron Hcl 4 Mg/2 Ml Vial) 4 mg IVPUSH Q8H PRN PRN Reason: Nausea and Vomiting Last Admin: 01/28/23 14:58 Dose: 4 mg Documented By: RAJAN Ondansetron HCl (Ondansetron Odt 4 Mg Tab.Rapdis) 4 mg TRANSLINGU Q6H PRN PRN Reason: nausea and vomiting Prednisone (Prednisone 10 Mg Tablet) 40 mg PO DAILY [facility]; Taper Stop: 02/27/23 11:54 Last Admin: 02/04/23 09:03 Dose: 40 mg Documented By: SELAM Sodium Chloride (0.9 % Sodium Chloride Flush 3 Ml Syringe) 3 ml IVFLUSH [facility] Last Admin: 02/04/23 09:07 Dose: 3 ml Documented By: SELAM Sodium Chloride (0.9 % Sodium Chloride Flush 3 Ml Syringe) 3 ml IVFLUSH [facility] Last Admin: 02/04/23 09:08 Dose: 3 ml Documented By: SELAM <Claire Valdes NP - Last Filed: 02/04/23 10:39> Labs CBC & Chem 7: 02/01/23 05:39 02/04/23 05:50 <Claire Valdes NP - Last Filed: 02/04/23 10:39> Labs: Laboratory Results - last 24 hr 02/03/23 02/04/23 09:24 05:50 Hold Purple Top SEE NOTE Anion Gap 18 16 Estim Creat Clear Calc 80.5 89.6 Estimated GFR > 60 > 60 Random Glucose 79 89 Calcium 9.3 9.5 Phosphorus 4.6 H 3.8 Magnesium 2.2 2.3 Albumin 4.1 4.0 Triglycerides 142 80 <Claire Valdes NP - Last Filed: 02/04/23 10:39> Assessment and Plan (1) Clostridium difficile colitis: Status: Acute <Claire Valdes NP - Last Filed: 02/04/23 10:39> (2) Malnutrition: Status: Acute <Claire Valdes NP - Last Filed: 02/04/23 10:39> (3) Pyoderma gangrenosum: Status: Acute <Claire Valdes NP - Last Filed: 02/04/23 10:39> (4) Crohn's disease: Status: Acute <Claire Valdes NP - Last Filed: 02/04/23 10:39> Assessment and Plan: This is a 37 year old women with hx of Crohns disease s/p colectomy and colostomy, recent admission for acute crohns flare who presents with with watery diarrhea more than 10 times a day. Crohns disease with acute flare abd CT> generalized bowel wall thickening and fluid distension concerning for underlying inflammatory process initially treated with IV solumedrol, transitioned to po prednisone 40 mg daily, will need 4 week taper on dc continue questran 4gm BID, Pentasa 500mg TID cimzia being sent from mail order pharmacy PICC line placed 01/28 and started on TPN for nutrition, stopped TPN 02/04/23, will leave PICC Line in place for now GI following - s/p EGD 01/30 showing gastritis, enteritis- started on low dose PPI, bx obtained path report negative for h.pylori, chronic inactive duodenitis, active enteritis CDIFF stool now soft, less liquid Cdiff tox B gene positive, on dificid for 10 days per ID (stop 02/07/23) ID following 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 appetite is good and patient is eating s/p TPN, stopped 02/04/23 Nutrition/retoucher photoengraving following possible chronic pancreatitis continue creon TID DVT prophylaxis heparin subQ Attending Dr. Pulido Full code Continued hospital stay for tx of crohns flare requiring pain management and close monitoring of electrolytes <Claire Valdes NP - Last Filed: 02/04/23 10:39> Time Spent With Patient Time: Total time managing care of this patient today ____ minutes. <Claire Valdes NP - Last Filed: 02/04/23 10:39> Quality Stroke Does the patient have a stroke diagnosis?: No <Claire Valdes NP - Last Filed: 02/04/23 10:39> VTE Prior VTE?: No <Claire Valdes NP - Last Filed: 02/04/23 10:39> VTE Risk Level:: Medical - moderate - high <Claire Valdes NP - Last Filed: 02/04/23 10:39> VTE Device Contraindication: N/A - Device Ordered <Claire Valdes NP - Last Filed: 02/04/23 10:39> VTE Drug Contraindication: Treatment Not Indicated <Claire Valdes NP - Last Filed: 02/04/23 10:39>
[2023-02-04 15:19] VITALS: BP 102/62; PULSE 98; RESP 16; TEMP 36.1; O2SAT 100
[2023-02-04 19:11] VITALS: BP 104/57; PULSE 77; RESP 18; TEMP 36.2; O2SAT 99
[2023-02-05 04:00] VITALS: BP 106/61; PULSE 77; RESP 18; TEMP 36.3; O2SAT 99
[2023-02-05 06:50] VITALS: BP 103/52; PULSE 70; RESP 16; TEMP 36.1; O2SAT 100
--- NOTE | 2023-02-05 08:32 | P.PNIM_ITS ---
Subjective Subjective Date of Service: 02/05/23 <Claire Valdes NP - Last Filed: 02/05/23 08:35> 02/23/23 <Eric Babcock MD - Last Filed: 02/23/23 10:14> Interval History: seen and examined this morning follow up for Crohns flare Doing better, still with pain to left upper abd <Claire Valdes NP - Last Filed: 02/05/23 08:35> Review of Systems Review of Systems: Yes all other systems are reviewed and are negative <Claire Valdes NP - Last Filed: 02/05/23 08:35> Constitutional Constitutional: Denies chills and Denies fever(s) <Claire Valdes NP - Last Filed: 02/05/23 08:35> Cardiovascular Cardiovascular: Denies chest pain and Denies palpitations <Claire Valdes NP - Last Filed: 02/05/23 08:35> Endocrine Endocrine: Denies palpitations <Claire Valdes NP - Last Filed: 02/05/23 08:35> Physical Exam 2 Vital Signs: Vital Signs: Last Vital Signs Temp 97 F 02/05/23 06:50 Pulse 70 02/05/23 06:50 Resp 16 02/05/23 06:50 BP 103/52 L 02/05/23 06:50 Pulse Ox 100 02/05/23 06:50 O2 Del Method Room Air 02/05/23 06:50 BMI result Body Mass Index 15.6 <Claire Valdes NP - Last Filed: 02/05/23 08:35> Appearing in no acute distress lung sounds are clear to auscultation heart regular rate rhythm, clear S1, S2 positive bowel sounds, abdomen is soft, nontender neuro patient is alert x3, no focal deficits <Claire Valdes NP - Last Filed: 02/05/23 08:35> Objective Data Active Medications Acetaminophen (Acetaminophen 325 Mg Tablet) 650 mg PO Q6H PRN PRN Reason: Pain, Mild (Pain Scale 1-3) Lipase/Protease/Amylase (Lipase/Prot/Amylase 12/38/60k Capsule.) 1 cap PO TIDWM [facility] Last Admin: 02/05/23 08:24 Dose: 1 cap Documented By: SELAM Cholestyramine Resin (Cholestyramine (With Sugar) 4 Gm Powd.Pack) 4 gm PO BIDWM [facility] Last Admin: 02/05/23 08:26 Dose: Not Given Documented By: SELAM Non-Admin Reason: Patient Refused Collagenase (Collagenase Clostridium Hist. 30 Gm Tube) 1 appl TOPICAL DAILY [facility]; Protocol Last Admin: 02/04/23 11:22 Dose: 1 appl Documented By: SELAM Ferrous Sulfate (Ferrous Sulfate 324 Mg Tablet.) 324 mg PO DAILY [facility] Last Admin: 02/05/23 08:24 Dose: 324 mg Documented By: SELAM Fidaxomicin (Fidaxomicin 200 Mg Tablet) 200 mg PO BID [facility] Stop: 02/07/23 10:44 Last Admin: 02/05/23 08:24 Dose: 200 mg Documented By: SELAM Heparin Sodium (Porcine) (Heparin Sodium,Porcine Flush 50 Units/5 Ml Syringe) 50 units IVFLUSH QSHIFT [facility] Last Admin: 02/05/23 08:24 Dose: 50 units Documented By: SELAM Heparin Sodium (Porcine) (Heparin Sodium,Porcine 5,000 Unit/Ml Vial) 5,000 unit SUBCUT Q12H [facility] Last Admin: 02/05/23 05:53 Dose: Not Given Documented By: ALONZO Non-Admin Reason: Patient Refused Hydromorphone HCl (Hydromorphone Hcl 0.5 Mg/0.5 Ml Syringe) 1 mg IVPUSH Q4H PRN; Protocol PRN Reason: Pain, Severe (Pain Scale 7-10) Last Admin: 02/05/23 05:57 Dose: 1 mg Documented By: ALONZO Mesalamine (Mesalamine 250 Mg Capsule.Er) 500 mg PO TID [facility] Last Admin: 02/05/23 08:24 Dose: 500 mg Documented By: SELAM Omeprazole (Omeprazole 20 Mg Capsule.Dr) 20 mg PO DAILY@0630 [facility] Last Admin: 02/05/23 05:57 Dose: 20 mg Documented By: ALONZO Ondansetron HCl (Ondansetron Hcl 4 Mg/2 Ml Vial) 4 mg IVPUSH Q8H PRN PRN Reason: Nausea and Vomiting Last Admin: 01/28/23 14:58 Dose: 4 mg Documented By: RAJAN Ondansetron HCl (Ondansetron Odt 4 Mg Tab.Rapdis) 4 mg TRANSLINGU Q6H PRN PRN Reason: nausea and vomiting Prednisone (Prednisone 10 Mg Tablet) 40 mg PO DAILY [facility]; Taper Stop: 02/27/23 11:54 Last Admin: 02/05/23 08:24 Dose: 40 mg Documented By: PRISCILAIC Sodium Chloride (0.9 % Sodium Chloride Flush 3 Ml Syringe) 3 ml IVFLUSH QSDCFT [facility] Last Admin: 02/05/23 08:24 Dose: 3 ml Documented By: GRAZIC Sodium Chloride (0.9 % Sodium Chloride Flush 3 Ml Syringe) [facility] Last Admin: 02/04/23 20:08 Dose: 3 ml Documented By: ALONZO <Claire Valdes NP - Last Filed: 02/05/23 08:35> Labs CBC & Chem 7: 02/01/23 05:39 02/04/23 05:50 <Claire Valdes NP - Last Filed: 02/05/23 08:35> Labs: Laboratory Results - last 24 hr 02/05/23 05:59 Phosphorus 4.1 Magnesium 2.1 Albumin 4.0 Triglycerides 75 <Claire Valdes NP - Last Filed: 02/05/23 08:35> Assessment and Plan (1) Clostridium difficile colitis: Status: Acute <Claire Valdes NP - Last Filed: 02/05/23 08:35> (2) Malnutrition: Status: Acute <Claire Valdes NP - Last Filed: 02/05/23 08:35> (3) Pyoderma gangrenosum: Status: Acute <Claire Valdes NP - Last Filed: 02/05/23 08:35> (4) Crohn's disease: Status: Acute <Claire Valdes NP - Last Filed: 02/05/23 08:35> Assessment and Plan: This is a 37 year old women with hx of Crohns disease s/p colectomy and colostomy, recent admission for acute crohns flare who presents with with watery diarrhea more than 10 times a day. Crohns disease with acute flare abd CT 01/27/23> generalized bowel wall thickening and fluid distension concerning for underlying inflammatory process initially treated with IV solumedrol, transitioned to po prednisone 40 mg daily, will need 4 week taper (02/27/23) continue questran 4gm BID, Pentasa 500mg TID cimzia being sent from mail order pharmacy PICC line placed 01/28 and started on TPN for nutrition, stopped TPN 02/04/23, will leave PICC Line in place for now while inpatient, DC when discharge is planned GI following - s/p EGD 01/30 showing gastritis, enteritis- started on low dose PPI, bx obtained path report negative for h.pylori, chronic inactive duodenitis, active enteritis CDIFF stool now soft, less liquid Cdiff tox B gene positive, on dificid for 10 days per ID (stop 02/07/23) ID following, no need to continue after stop date 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 Babcock Full code Continued hospital stay for tx of crohns flare requiring pain management and close monitoring of electrolytes <Claire Valdes NP - Last Filed: 02/05/23 08:35> Time Spent With Patient Time: Total time managing care of this patient today ____ minutes. <Claire Valdes NP - Last Filed: 02/05/23 08:35> Quality Stroke Does the patient have a stroke diagnosis?: No <JENIFER Reddy Last Filed: 02/05/23 08:35> VTE Prior VTE?: No <Claire Valdes NP - Last Filed: 02/05/23 08:35> VTE Risk Level:: Medical - moderate - high <JENIFER Reddy Last Filed: 02/05/23 08:35> VTE Device Contraindication: N/A - Device Ordered <JENIFER Reddy Last Filed: 02/05/23 08:35> VTE Drug Contraindication: Treatment Not Indicated <Claire Valdes NP - Last Filed: 02/05/23 08:35>
--- NOTE | 2023-02-05 12:16 | MHC.CLN ---
F/U DIET=REGULAR. ENSURE MAX PROTEIN PROVIDES ADDITIONAL 300 KCALS, 60 G PROTEIN. TPN STOPPED 02/04. USUALLY GOOD INTAKE, 75-100%. MOST RECENT INTAKE X 3 MEALS 25-75%. CONTINUE TO FOLLOW FOR PO INTAKE.
--- NOTE | 2023-02-05 13:08 | MHC.CM.PN ---
Addendum entered by Emily Marcelo 02/05/23 15:55: CM MET WITH PT REGARDING NEW PCP INFORMATION. ENCOURAGED TO CALL [facility] THEY ARE TAKING NEW PT'S. PT VERBALIZES SHE WILL FOLLOW THROUGH WITH THIS. Original Note: EMR REVIEWED AND PER MD ROUNDS, PT NOT MEDICALLY CLEARED FOR DC. AWAITING HOME MED (CIMZIA) TO BE DELIVERED. CM WILL CONTINUE TO FOLLOW FOR ANY CHANGE IN DC NEEDS/PLAN.
[2023-02-05 15:19] VITALS: BP 126/68; PULSE 98; RESP 16; TEMP 36.6; O2SAT 94
[2023-02-05] MEDS: 0.9 % Sodium Chloride Flush 3 ML SYRINGE IVFLUSH ×4 (16:44→21:31)
[2023-02-05] MEDS: Heparin Sodium,Porcine Flush 50 UNITS/5 ML SYRINGE IVFLUSH ×2 (16:44→21:32)
[2023-02-05] MEDS: Lipase/Prot/Amylase 12/38/60K CAPSULE.DR 1 CAP PO (16:44)
[2023-02-05] MEDS: HYDROmorphone HCl 0.5 MG/0.5 ML SYRINGE 1 MG IVPUSH ×2 (18:03→21:31)
[2023-02-05 19:10] VITALS: BP 104/63; PULSE 85; RESP 16; TEMP 36.8; O2SAT 100
[2023-02-05] MEDS: Fidaxomicin 200 MG TABLET PO (21:31)
[2023-02-05] MEDS: Mesalamine 250 MG CAPSULE.ER 500 MG PO (21:31)
[2023-02-06] MEDS: HYDROmorphone HCl 0.5 MG/0.5 ML SYRINGE 1 MG IVPUSH ×2 (01:33→05:36)
[2023-02-06 03:53] VITALS: BP 110/57; PULSE 82; RESP 18; TEMP 36.5; O2SAT 100
[2023-02-06] MEDS: Omeprazole 20 MG CAPSULE.DR PO (05:38)
[2023-02-06 07:23] LABS: Albumin Level 4.2 g/dL (3.5-5.0); Magnesium 2.1 mg/dL (1.6-2.6); Phosphorus 4.4 mg/dL (2.7-4.5); Triglycerides 95 mg/dL (<150)
[2023-02-06 07:31] VITALS: BP 98/53; PULSE 73; RESP 16; TEMP 36.6; O2SAT 99
[2023-02-06] MEDS: 0.9 % Sodium Chloride Flush 3 ML SYRINGE IVFLUSH (08:13)
[2023-02-06] MEDS: predniSONE 10 MG TABLET 30 MG PO (08:13)
[2023-02-06] MEDS: Heparin Sodium,Porcine Flush 50 UNITS/5 ML SYRINGE IVFLUSH (08:13)
[2023-02-06] MEDS: Lipase/Prot/Amylase 12/38/60K CAPSULE.DR 1 CAP PO ×2 (08:14→12:34)
[2023-02-06] MEDS: Ferrous Sulfate 324 MG TABLET.DR PO (08:14)
[2023-02-06] MEDS: Fidaxomicin 200 MG TABLET PO (08:14)
[2023-02-06] MEDS: Mesalamine 250 MG CAPSULE.ER 500 MG PO (08:15)
[2023-02-06] MEDS: HYDROmorphone HCl 1 MG/ML SYRINGE IVPUSH (10:22)
--- NOTE | 2023-02-06 10:58 | MHC.CM.PN ---
T/W, ALONG WITH COURT SECURITY OFF[employer]ER [employer], MET WITH PATIENT TO DISCUSS CONTINUUM OF CARE. PATIENT PLANS TO REMAIN IN [place]. INSURANCE IS VERIFIED. PATIENT IS AWARE OF THE OBSTACLES TO CONTINUING SERVICES AT DISCHARGE, INCLUDING HER DECISION TO LEAVE HER PROVIDERS FOR WOUND CARE, GI, AND PAIN MANAGEMENT, IN [place]. PLAN IS FOR PICC REMOVAL TODAY OR TOMORROW IF GI PROVIDER WILL CONTINUE TO PRESCRIBE GI MEDICATION, PATIENT MAY ONLY HARINDER A POST-DC VISIT HERE ON CAMPUS CASE MANAGEMENT TO ATTEMPT AND FOLLOW UP WITH PROGRESS.
--- NOTE | 2023-02-06 12:40 | HE.PHANOTE ---
RE: NATALIE Spoke to patients family member who delivered their patient own CIMZIA. They stated they had it delievered this morning. Called [facility] to confirm, spoke to Kristin. Delivered in fridge packaging this morning, product should still be good to be given as RN placed in fridge right when they got it.
--- NOTE | 2023-02-06 13:19 | MHC.CM.PN ---
PATIENT IS READY FOR DC. PICC LINE TO BE REMOVED PATIENT HAS FOLLOW UP VISIT WITH ANGELICA (KINJAL MARC) ON MARCH 03, 2023 AT NOON. INFORMATION PLACED ON DC INSTRUCTIONS.
[2023-02-06] MEDS: HYDROmorphone HCl 0.5 MG/0.5 ML SYRINGE IVPUSH (13:34)
--- NOTE | 2023-02-06 15:26 | P.DS_ITS ---
DS: Providers Provider Date of Service: 02/06/23 Date of admission: 01/27/23 17:58 Date of discharge: 02/06/23 Primary care physician: Unknown Physician Consults: 01/27/23 14:20 Consult to Gastroenterology Routine Consulting Provider: Elbert Stark Reason for consultation: crohns, abd pain 01/28/23 10:42 Consult to Infectious Diseases Routine Consulting Provider: Lottie Díaz Reason for consultation: cdiff 02/02/23 07:12 Consult to Wound Care Routine Consulting Provider: Andreia Solano Reason for consultation: pyoderma gangrenosum Has provider been notified: No Attending physician on discharge: Eric [facility] Discharging clinician: Moni Menjivar DS: Diagnosis Discharge Diagnosis (1) Clostridium difficile colitis: Status: Acute (2) Malnutrition: Status: Acute (3) Pyoderma gangrenosum: Status: Acute (4) Crohn's disease: Status: Acute DS: Summary Hospital Course Hospital Course: From H&P on day of admission 37 year old women with a hx of crohns disease presenting with abd pain and watery diarrhea that started 4 days ago. She reported having to empty her ileostomy at least 10 times. She also reported some LUQ abd pain radiating to left flank and back area. She reports a good appetite but has watery stools with every meal. She reported taking the mesalamine and prednisone at home. She also felt that the pyoderma gangrenosa to her RLE was getting worse and had more serosang drainage to it. She was discharged from [facility] on 01/18/23 and treated for the same. She did improve significantly and had been doing well up untill 4 days ago. In the ED, all of her labs were within normal limits, vital signs stable. Abdominal CT pending. She was given narcotic pain medication, IV fluids and antiemetics. She will be admitted for further management and treatment of diarrhea with abdominal pain. This is a 37 year old women with hx of Crohns disease s/p colectomy and colostomy, recent admission for acute crohns flare who presents with with watery diarrhea more than 10 times a day treated for cdif and crohns flare. Crohns disease with acute flare abd CT 01/27/23 showing generalized bowel wall thickening and fluid distension concerning for underlying inflammatory process initially treated with IV solumedrol, transitioned to po prednisone 40 mg daily, and plan to complete 4 week taper upon discharge questran 4gm BID was ordered but patient declined to take during hospital stay. she was continued on Pentasa 500mg TID PICC line placed 01/28 and started on TPN for nutrition, stopped TPN 02/04/23, patient has been eating 50% or more of meals. cimzia being sent from mail order pharmacy, patient received first dose 02/06, and will need another dose in 2 weeks and then monthly after that. she was seen by GI following - s/p EGD 01/30 showing gastritis, enteritis- started on low dose PPI, bx obtained path report negative for h.pylori, chronic inactive duodenitis, active enteritis . she will be discharged on omeprazole and will need outpatient follow up with GI. 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 no debridement indicated as this typically makes pyoderma worse. recommend outpatient follow up in wound care clinic. she will be discharged with supplies for wound care chronic microcytic anemia h/o iron deficiency drop in H/H likely dilutional, no evidence of acute blood loss. continue po iron replacement. will need outpatient follow up with PCP once obtained Severe protein calorie malnutrition. appetite is good and patient is eating. s/p TPN, stopped 02/04/23 possible chronic pancreatitis continue creon TID, outpatient follow up with GI [place] she does not yet have PCP. she will be referred to wound clinic, GI and pain management clinic. She has a post- hospitalization follow up appointment scheduled for 03/03 but will need to obtain for PCP to schedule follow up with. Case management has discussed this with her and she is aware. Time Spent with Patient Time attestation: Total time managing care of this patient today ____ minutes. Discharge coordination time: Greater than 30 minutes Quality: Safe Use of Opioids Does Pt have an Active Cancer Diagnosis on the Problem List?: No Quality: Stroke Does the patient have a stroke diagnosis?: No Physical Exam Vital Signs: Vital Signs: Last Vital Signs Temp 97.9 F 02/06/23 07:31 Pulse 73 02/06/23 07:31 Resp 16 02/06/23 07:31 BP 98/53 L 02/06/23 07:31 Pulse Ox 99 02/06/23 07:31 O2 Del Method Room Air 02/06/23 07:31 BMI result Body Mass Index 15.6 Const: General: cooperative, comfortable, no acute distress, alert and awake Nutritional Appearance: thin Orientation/consciousness: patient oriented x3 Resp: Effort & Inspection: normal respiratory effort, able to speak in complete sentences, no respiratory distress and no use of accessory muscles Cardio: Rate: regular rate GI: Inspection: No distended Palpation (GI): Soft to palpation Skin: Other: RLE wrapped in c/d/i dressing Neuro: General: patient oriented x3, moves all extremities and CN's II-XI intact bilaterally DS: Data Data Completed and Pending Completed studies during hospitalization [Text1]: Pending at discharge 01/30/23 10:48 Surgical [PTH] Routine Pending studies at discharge: Pending at discharge 01/30/23 10:47 Surgical [PTH] Routine Labs on day of discharge: Laboratory Results - last 24 hr 02/06/23 06:11 Phosphorus 4.4 Magnesium 2.1 Albumin 4.2 Triglycerides 95 Discharge Plan Discharge Anticipated Discharge Date/Time: 02/06/23 15:10 Patient Disposition: Home, Self-Care Discharge Diagnosis: Flare of crohns disease cdif colitis malnutrition pyoderma gangrenosum gastritis Referrals: Ashley Sheppard FNP [Nurse Practitioner] - 03/03/23 12:00 pm (You have a New Patient appointment scheduled. If you need to reschedule please call the office.) Elbert Stark MD [Physician] - 1 Week Soy Gorman MD [Physician] - 1 Week Andreia Solano MD [Physician] - 1 Week Discharge Medications: New Dificid 200 mg Tablet 200 mg PO BID Qty: 3 0RF Creon 12,000-38,000 -60,000 unit Capsule,Delayed Release(Dr/Ec) 1 cap PO TIDWM 30 Days Qty: 90 0RF omeprazole 20 mg Capsule,Delayed Release(Dr/Ec) 20 mg PO DAILY@0630 30 Days Qty: 30 0RF Santyl 250 unit/gram Ointment 1 appl topical DAILY Qty: 90 0RF Protocol: Apply to: Apply to: eschar areas only on right leg daily - thick layer of cream on it. prednisone 10 mg tablet See Taper PO DIRECTED Qty: 42 0RF Taper: Prednisone 30 mg daily for 7 Days and 0 Hour 20 mg daily for 7 Days and 0 Hour 10 mg daily for 7 Days and 0 Hour Rx Instructions: see taper instructions oxycodone 5 mg tablet 5 mg PO Q6H PRN (Reason: pain (scale score 7-10)) Qty: 20 0RF Rx Instructions: Partial Fill upon patient request. Continued Cimzia Starter Kit 400 mg/2 mL (200 mg/mL x 2) syringe kit 400 mg subcut Q2W Qty: 3 0RF Rx Instructions: administer as 2 equally divided doses at 2 different sites in abdomen or thi gh Pentasa 250 mg Capsule, Extended Release 500 mg PO TID Qty: 90 1RF ferrous sulfate 324 mg (65 mg iron) tablet,delayed release (DR/EC) 324 mg PO DAILY Qty: 30 0RF ondansetron 4 mg tablet,disintegrating 4 mg PO Q6-8H PRN (Reason: nausea and vomiting) Qty: 14 0RF Discontinued prednisone 10 mg tablet See Taper PO DIRECTED Qty: 70 0RF Taper: Prednisone 40 mg daily for 7 Days and 0 Hour 30 mg daily for 7 Days and 0 Hour 20 mg daily for 7 Days and 0 Hour 10 mg daily for 7 Days and 0 Hour Rx Instructions: see taper instructions Discharge Orders: Discharge Order (Routine); Ordered 02/06/23 Ordered By: Moni Menjivar Diet: Advance to usual diet Activity on Discharge: As tolerated Stand Alone Forms: Patient Portal Discharge page Care Plan Goals: see below Health Concerns: C diff colitis flare of Crohn's disease malnutrition chronic pain pyoderma gangrenosa gastritis Plan of Treatment: for C diff colitis, complete course of antibiotics, 3 more doses for flare of Crohn's disease complete prednisone taper as prescribed. you received first dose of Cimzia today, you will need another dose in 2 weeks and then every 4 weeks after that. call to schedule follow-up appointment with GI gastritis - take prilosec as prescribed until follow up with GI for pyoderma gangrenosum - continue daily dressing changes as you have been doing and call to schedule follow up appointment in the wound care clinic for chronic pain - recommend follow up in pain management clinic you have been startedon creon pancreatic enzyme replacement for possible chronic pancreatitis - will need follow up with GI an appointment has been made for 03/03 at noon for a post hospitalization discharge but you will need to obtain a PCP. call to schedule an appointment as soon as possible. Assessment: see discharge summary
--- NOTE | 2023-02-06 15:29 | MHC.CM.PN ---
PICC LINE REMOVED. PATIENT IS DC HOME - SELF CARE SHE IS REMINDED OF HER FOLLOW UP VISIT IN . INFORMATION IS FOUND ON DC PACKET. RN AWARE OF PLAN
== END 2023-02-06 16:04 | disposition home or self-care (01) | DRG 245 ==
LOC: HO.ED 14:10 → HO.EDOVER 18:00 → HO.S3 19:06
PROVIDERS: Internal Medicine Gastroenterology; Admitting Provider Nurse Practitioner Acute Care; Emergency Provider Emergency Medicine; Visit Provider Physician Assistant Medical
PROC: 02HV33Z Insertion of Infusion Device into Superior Vena Cava, Percutaneous Approach (ICD-10-PCS; principal; 2023-01-28 16:00)
PROC: 0DJ08ZZ Inspection of Upper Intestinal Tract, Via Natural or Artificial Opening Endoscopic (ICD-10-PCS; CPT 43235; principal; 2023-01-30 13:00)
DX: K50.00 Crohn's disease of small intestine without complications (principal); E43 Unspecified severe protein-calorie malnutrition; A04.72 Enterocolitis due to Clostridium difficile, not specified as recurrent; D50.9 Iron deficiency anemia, unspecified; F17.210 Nicotine dependence, cigarettes, uncomplicated; K86.1 Other chronic pancreatitis; L88 Pyoderma gangrenosum; Z68.1 Body mass index [BMI] 19.9 or less, adult; Z71.6 Tobacco abuse counseling; Z93.3 Colostomy status; Z79.899 Other long term (current) drug therapy
CPT/HCPCS: 36415; 36573; 74176; 80048; 80053; 80307; 81025; 82040; 82947; 83735; 84100; 84478; 84702; 85025; 85027; 85652; 86141; 87324; 87493; 88305; 88342; 93005; 99285; C1751; J1170; J1642; J1643; J2405; J2920

== ENCOUNTER → 2023-01-27 17:58 | Outpatient (BNV) | payer OTHER, SELFPAY | PROVIDERS: Admitting Provider Nurse Practitioner Acute Care; Emergency Provider Emergency Medicine; Visit Provider Internal Medicine | DX: A04.72 Enterocolitis due to Clostridium difficile, not specified as recurrent (principal); E44.0 Moderate protein-calorie malnutrition; K50.019 Crohn's disease of small intestine with unspecified complications; L88 Pyoderma gangrenosum | CPT/HCPCS: 99222; 99232 ==

== ENCOUNTER → 2023-01-27 17:58 | Outpatient (BNV) | payer OTHER, SELFPAY | PROVIDERS: Admitting Provider Nurse Practitioner Acute Care; Emergency Provider Emergency Medicine; Visit Provider Nurse Practitioner Acute Care | DX: A04.72 Enterocolitis due to Clostridium difficile, not specified as recurrent (principal); E44.0 Moderate protein-calorie malnutrition; L88 Pyoderma gangrenosum; K50.019 Crohn's disease of small intestine with unspecified complications | CPT/HCPCS: 99223; 99232; 99233; 99239 ==

== ENCOUNTER → 2023-01-27 17:58 | Outpatient (BNV) | payer OTHER, SELFPAY | PROVIDERS: Admitting Provider Nurse Practitioner Acute Care; Emergency Provider Emergency Medicine; Visit Provider Internal Medicine Gastroenterology | DX: K29.70 Gastritis, unspecified, without bleeding (principal); K50.90 Crohn's disease, unspecified, without complications | CPT/HCPCS: 43239; 44382; 99222 ==

== ENCOUNTER → 2023-01-27 17:58 | Outpatient (BNV) | payer OTHER, SELFPAY | PROVIDERS: Admitting Provider Nurse Practitioner Acute Care; Emergency Provider Emergency Medicine; Visit Provider Surgery | DX: L88 Pyoderma gangrenosum (principal); K50.90 Crohn's disease, unspecified, without complications | CPT/HCPCS: 99222 ==

== ENCOUNTER 2023-02-10 08:09 | Outpatient (AMB) | payer OTHER, SELFPAY ==
--- NOTE | 2023-02-10 08:11 | AM.OFFWIN_ITS ---
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 She is requesting a refill on oxycodone and Ambien. Patient does not have a primary care provider. She has severe Crohn's disease with pyoderma gangrenosum on her right leg. She is been hospitalized multiple times and was recently discharged a few days ago. Patient is on immune modulator and is waiting to see a primary care provider. She is moved from [place] a month ago. 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 At the time of discharge from the hospital she was only given a few days' worth of medication. 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 History of small bowel obstruction Crohn's disease Surgical History H/O colectomy Social History Household Members: None Housing: Apartment Do you presently have visiting nurse or other home services: No Alcohol intake: never Patient Tobacco Use Status: Current everyday Tobacco user Tobacco use type: Cigarette Cigarette Packs Per Day: 6 Cigarettes Per Day: 120.0 Substance Use Type: Marijuana service: No Physical Exam Vital Signs: Last Vital Signs Temp 97.9 F 02/10/23 08:14 Pulse 118 H 02/10/23 08:14 BP 100/60 02/10/23 08:14 Pulse Ox 98 02/10/23 08:14 BMI result Body Mass Index 17.9 Const General: cooperative and healthy appearing Nutritional Appearance: well nourished Orientation/consciousness: patient oriented x3 Limitations: no limitations HEENT Head: Yes normal to inspection Eyes General: appearance normal, both eyes and all related structures Neck Neck: Yes normal visual inspection Chest Chest palpation & inspection: normal palpation of entire chest wall Resp Effort & Inspection: normal respiratory effort Neuro General: patient oriented x3 Assessment & Plan Assessment & Plan (1) Crohn's disease: Code(s): K50.90 - Crohn's disease, unspecified, without complications Qualifiers: Digestive disease complication type: unspecified complication Gastrointestinal tract location: small intestine Qualified Code(s): K50.019 - Crohn's disease of small intestine with unspecified complications Plan: I have agreed to be her primary care provider and will see her at [facility] office in a few days. Meanwhile, a few days prescriptions for pain and sleep have been prescribed. Her records from [place] need to be obtained. Medications: New zolpidem (Ambien) may repeat once if no response in 30-60 minutes 5 mg PO BEDTIME 14 tabs 0RF Changed From oxycodone Partial Fill upon patient request. 5 mg PO Q6H PRN 20 tabs 0RF pain (scale score 7-10) To oxycodone Partial Fill upon patient request. 5 mg PO DAILY PRN 20 tabs 0RF pain (scale score 7-10) Coding Level of Care Code New Pt Level 4 (96222) Diagnoses Crohn's disease K50.019 Digestive disease complication type: unspecified complication Gastrointestinal tract location: small intestine
[2023-02-10 08:14] VITALS: BP 100/60; PULSE 118; TEMP 36.6; O2SAT 98; BMI 17.9
== END 2023-02-10 09:19 | disposition home or self-care (01) ==
LOC: HO.HMGWI 08:09
PROVIDERS: Visit Provider Internal Medicine
DX: K50.019 Crohn's disease of small intestine with unspecified complications (principal)
CPT/HCPCS: 99204

== ENCOUNTER 2023-02-12 10:06 | Outpatient (AMB) | payer OTHER, SELFPAY ==
--- NOTE | 2023-02-12 10:14 | A.OFFPC_ITS ---
Vital Signs 02/12/23 10:16 Height 5 ft 2 in Weight 97 lb 6 oz BMI 17.8 BP 100/70 Blood Pressure Location Lt brachial Position Sitting Pulse 118 H Pulse Source Pulse Oximeter Pulse Oximetry (%) 100 Oxygen Delivery Method Room Air Intake Visit Reasons: new patient Intake Note: Patient is a new patient here to establish care for Chrons disease, Anemia, Pidodermia in right leg, Anxiety. Transferring care from Dr. Caitlyn Dawn([facility] [place]) Medical records have not been requested and have not received. Surgical First Assistant Required: Yes Surgical First Assistant Language: Street Sweeper Operator Name: Neil ([id number]) Information Interpreted: non-clinical & clinical Quality Rep: Not Required per policy Accompanied by: Self / Same As Patient Allergies vancomycin Allergy (Verified 02/17/23 05:25) Anaphylaxis Medication List - Last Reconciled 02/17/23 by Dung Agarwal MD bismuth tribrom-petrolatum,wh 5 X 9 (Xeroform Petrolatum Dressing) As directed certolizumab pegol (Cimzia Starter Kit) 400 mg (2 mL) subcut Q2W 3 doses collagenase clostridium histo. (Santyl) 1 appl See Protocol topical DAILY ferrous sulfate 324 mg PO DAILY fidaxomicin (Dificid) 200 mg PO BID bkrktf-muqinkli-seoxysf 12,000-38,000 -60,000 unit (Creon) 1 cap PO TIDWM 30 da ys mesalamine ER (Pentasa) 500 mg (2 x 250 mg) PO TID omeprazole 20 mg PO DAILY@0630 30 days ondansetron 4 mg PO Q6-8H PRN oxycodone 5 mg PO DAILY PRN prednisone See Taper mg PO DIRECTED zolpidem (Ambien) 5 mg PO BEDTIME Tobacco use date assessed: 02/12/23 Dental Screening Dental Screen Date: 02/12/23 Did you have a dental visit in the last 12 months?: No Did you have a dental problem in the last 6 months where you did not have access to dental care?: No Was dental information given to patient?: No HPI new patient HPI Details 37-year-old female wishes to establish h er care here. She was initially seen at the walk-in clinic. Patient has active Crohn's disease, an ileostomy bag, a wound on her right leg and chronic pain. She is on disease modifying agents for the Crohn's disease. Her main symptoms are chronic pain around the anastomosis site. She has been used to oxycodone up 4 times a day. She has relocated from [facility] and would like to be established with a pain clinic. She also takes Ambien for sleep at night. 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 History of small bowel obstruction Crohn's disease Surgical History H/O colectomy Social History (Updated 02/12/23 @ 10:25 by GENTRY Dominguez) Household Members: None Housing: Apartment Do you presently have visiting nurse or other home services: No Alcohol intake: never Patient Tobacco Use Status: Current everyday Tobacco user Tobacco use type: Cigarette Cigarette Packs Per Day: 0.5 Cigarettes Per Day: 6 e-Cigarette/Vaping Use: Never Used Second Hand Smoke Exposure: Yes Substance Use Type: Marijuana service: No Current occupational status: disabled Cognitive needs: No Hearing needs: No Vision needs: No Questionnaire PHQ-9 Over the last 2 weeks, how often have you been bothered by any of the following problems? 1. Little interest or pleasure in doing things: not at all 2. Feeling down, depressed, or hopeless: not at all 3. Trouble falling or staying asleep, or sleeping too much: not at all 4. Feeling tired or having little energy: not at all 5. Poor appetite or overeating: not at all 6. Feeling bad about yourself - or that you are a failure or have let yourself or your family down: not at all 7. Trouble concentrating on things, such as reading the newspaper or watching television: not at all 8. Moving or speaking so slowly that other people could have noticed. Or the opposite - being so fidgety or restless that you have been moving around a lot more than usual: not at all 9. Thoughts that you would be better off or of hurting yourself in some way: not at all Total score: 0 Depression Screening Interpretation: Negative Depression Screening Done: Yes Source: Developed by Drs. Miki Stevenson, Miriam Rai, Andrzej Sexton and colleagues, with an educational laura from [employer] Thrive Questionnaire Date Thrive assessed: 02/12/23 I am a: Patient What is your living situation today?: I have a steady place to live Within the past 12 months, did the food you bought not last and you didn't have the money to get more?: Never true Within the past 12 months, did you worry whether your food would run out before you got money to buy more?: Never true Do you have trouble paying for medicines?: No Do you have trouble getting transportation to medical appointments?: No Do you have trouble paying your heating and electricity bill?: No Do you have trouble taking care of your child, family member or friend?: No Do you have trouble with day-to-day activities such as bathing, preparing meals, shopping, managing finances, etc.?: No Are you currently unemployed and looking for a job?: No Are you interested in more education?: No Currently or been in a relationship where the following occur: no concerns reported AUDIT C Alcohol Use Questionnaire (AUDIT-C) 1. How often do you have a drink containing alcohol?: Never Total Score: 0 REG-7 AMB Questionnaire REG-7 Date REG - 7 assessed: 02/12/23 Feeling nervous, anxious, or on edge: 2 = More than half the days Not being able to stop or control worryin = Not at all Worrying too much about different things: 0 = Not at all Trouble relaxin = More than half the days Being so restless that it is hard to sit still: 1 = Several days Becoming easily annoyed or irritable: 1 = Several days Feeling afraid as if something awful might happen: 0 = Not at all Total REG-7 score (0-4 normal; 5-9 mild; 10-14 moderate; 15-21 severe): 6 Source: Developed by Drs. Miki Stevenson, Andrzej Otero and colleagues, with an educational laura from [employer] Physical exam (Primary Care) Vital Signs: Last Vital Signs Pulse 118 H 02/12/23 10:16 BP 100/70 02/12/23 10:16 Pulse Ox 100 02/12/23 10:16 Oxygen Delivery Method Room Air 02/12/23 10:16 BMI result Body Mass Index 17.8 Tobacco/Smoking Status: Tobacco use Status Tobacco use date assessed 02/12/23 02/12/23 10:28 Patient Tobacco Use Status Current everyday Tobacco 02/12/23 10:28 Tobacco use type Cigarette 02/12/23 10:28 e-Cigarette/Vaping Use Never Used 02/12/23 10:28 PHQ-9: PHQ-9 Score PHQ-9: Total score 0 02/12/23 10:28 Depression Screening Interpretation: Negative Thrive Assessment: Date of Thrive Assessment Date Thrive assessed 02/12/23 02/12/23 10:28 Currently or been in a relationship where the following occur: no concerns reported Const General: cooperative Nutritional Appearance: underweight Orientation/consciousness: patient oriented x3 Limitations: no limitations HENMT Head: Yes normal to inspection Eyes General: appearance normal, both eyes and all related structures Neck Neck: Yes normal visual inspection Chest Chest palpation & inspection: normal palpation of entire chest wall Resp Effort & Inspection: normal respiratory effort GI Other: Abdomen: Surgical scar. Ileostomy bag functioning. Neuro General: patient oriented x3 Assessment and Plan Assessment & Plan (1) Crohn's disease: Code(s): K50.90 - Crohn's disease, unspecified, without complications Qualifiers: Digestive disease complication type: unspecified complication Gastrointestinal tract location: small intestine Qualified Code(s): K50.019 - Crohn's disease of small intestine with unspecified complications Plan: Patient has an appointment with the wound clinic for management of her chronic ulcer. I would like to decrease her oxycodone to 1 pill a day. A referral to Pain Management after her GI consult will be scheduled. Medications: Refilled oxycodone Partial Fill upon patient request. 5 mg PO DAILY PRN 20 tabs 0RF pain (scale score 7-10) Coding Level of Care Code Est Pt Level 3 (93908) Diagnoses Crohn's disease K50.019 Digestive disease complication type: unspecified complication Gastrointestinal tract location: small intestine
[2023-02-12 10:16] VITALS: BP 100/70; PULSE 118; O2SAT 100; BMI 17.8
== END 2023-02-12 11:20 | disposition home or self-care (01) ==
PROVIDERS: Visit Provider Internal Medicine
DX: K50.019 Crohn's disease of small intestine with unspecified complications (principal)
CPT/HCPCS: 99213

== ENCOUNTER 2023-02-20 10:56 | Emergency (ER) | payer OTHER, SELFPAY ==
[2023-02-20 11:00] VITALS: BP 137/77; PULSE 114; RESP 16; TEMP 36.9; O2SAT 100; BMI 17.9
--- NOTE | 2023-02-20 11:03 | ED.GENADULT ---
HPI - General Adult General Chief complaint: Abdominal Pain Stated complaint: crohn's flare up / pain in R leg Time Seen by Provider: 02/20/23 11:11 Source: patient Mode of arrival: ambulatory Limitations: language barrier History of Present Illness HPI narrative: History through global [facility]. Increasing abdominal pain with watery stool into the colostomy bag. Patient has her anus sewed up but she is noticing pressure and brown discharge. She has chronic diarrhea. She recently was treated for Cdiff. Onset (ago): week(s) Related Data Previous Rx's Medication Instructions Recorded ferrous sulfate 324 mg (65 mg 324 mg PO DAILY #30 tabs 01/18/23 iron) tablet,delayed release mesalamine 250 mg capsule,extended 500 mg (2 x 250 mg) PO TID #90 caps 01/18/23 release (Pentasa) ondansetron 4 mg disintegrating 4 mg PO Q6-8H PRN nausea and 01/21/23 tablet vomiting #14 tabs certolizumab pegol 400 mg/2 mL 400 mg (2 mL) subcut Q2W 3 doses 01/31/23 (200 mg/mL x2) subcutaneous #3 ea syringe kit (Cimzia Starter Kit) bismuth tribrom-petrolatum,wh 5 X #50 ea 02/06/23 9 bandage (Xeroform Petrolatum Dressing) collagenase clostridium histo. 250 1 appl topical DAILY #90 grams 02/06/23 unit/gram topical ointment (Santyl) fidaxomicin 200 mg tablet (Dificid) 200 mg PO BID #3 tabs 02/06/23 [id number]-szwdxulm-aibqfdp 1 cap PO TIDWM 30 days #90 caps 02/06/23 12,000-38,000-60,000 unit capsule,delayed rel (Creon) omeprazole 20 mg capsule,delayed 20 mg PO DAILY@0630 30 days #30 02/06/23 release caps prednisone 10 mg tablet See Taper PO DIRECTED #42 tabs 02/06/23 zolpidem 5 mg tablet (Ambien) 5 mg PO BEDTIME #14 tabs 02/10/23 oxycodone 5 mg tablet 5 mg PO DAILY PRN pain (scale 02/12/23 score 7-10) #20 tabs Allergies Allergy/AdvReac Type Severity Reaction Status Date / Time vancomycin Allergy Anaphylaxis Verified 02/17/23 05:25 Review of Systems Review of Systems: Yes all other systems are reviewed and are negative Neurologic: Denies Sensory deficit (Neuro) [facility] Past Medical History Medical History Clostridium difficile colitis Malnutrition CHINMAY (iron deficiency anemia) Microcytic anemia 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 History of small bowel obstruction Crohn's disease Surgical History H/O colectomy Social History Social History Household Members: None Housing: Apartment Do you presently have visiting nurse or other home services: No Alcohol intake: never Patient Tobacco Use Status: Current everyday Tobacco user Tobacco use type: Cigarette Cigarette Packs Per Day: 0.5 Cigarettes Per Day: 6 Smoked in Last 30 Days: Yes e-Cigarette/Vaping Use: Never Used Second Hand Smoke Exposure: Yes Use of substances other than those prescribed or required for medical reasons: No Substance Use Type: Marijuana Advance Directives: No Advance Directives Information Provided: Yes service: No Current occupational status: disabled Cognitive needs: No Hearing needs: No Vision needs: No Physical Exam ED Vital Signs: Vital Signs - 24 hr 02/20/23 11:00 02/20/23 11:10 02/20/23 13:53 Temperature 98.4 F 98.4 F 98.6 F Pulse Rate 114 H 103 H 81 Respiratory Rate 16 16 16 Blood Pressure 137/77 124/85 123/83 Pulse Oximetry 100 100 100 Oxygen Delivery Method Room Air Room Air Room Air 02/20/23 15:08 Temperature 97.8 F Pulse Rate 75 Respiratory Rate 15 Blood Pressure 124/88 Pulse Oximetry 99 Oxygen Delivery Method Room Air BMI result Body Mass Index 17.9 Const Other: cachectic chronically ill appearing, anxious Orientation/consciousness: oriented to person and patient oriented x3 Limitations: no limitations HENMT Head: Yes normal to inspection Ears: external ears normal General nose exam: Normal external nose present Mouth: Normal oral and palatal mucosa present and oropharynx normal Throat: Yes posterior oropharynx normal Eyes General: appearance normal, both eyes and all related structures Neck Neck: Yes normal visual inspection Chest Chest palpation & inspection: normal inspection of the chest Resp Auscultation: clear to auscultation bilaterally Cardio Jugular venous distension: no JVD Rate: regular rate Rhythm: regular rhythm Heart sounds: S1 normal heart sound present and S2 normal heart sound present GI Other: colostomy in place, watery stool in colostomy, abdomen with mulitple scars, diffusely tender Other: rectal fibrosed no abscess tender to touch Skin Other: chronic pyoderma lesions to right leg, well demarcated, no surounding erythema or pus. Foul smelling Neuro General: oriented to person and patient oriented x3 Cranial nerves: Yes CN's II-XII intact bilaterally Motor exam (neuro): 5/5 motor strength present throughout Sensory Exam: No Sensory deficit (Neuro) Extrem General: Yes normal to inspection Psych Appearance: grossly normal Course Course Course Narrative: RME- 37-year-old female presents for evaluation of multiple complaints including abdominal pain with watery diarrhea. She was recently diagnosed with C diff colitis reports completing her antibiotic course. She also complains of ?abscess on her right leg and buttocks area. Slightly tachycardic in triage but otherwise well-appearing with stable vital signs. She is afebrile. Plan for labs, GI panel Reevaluation(s) Reevaluation #1: overall patient looks better than the last time I saw her, skin lesions look not infected Time: 14:18 Reevaluation #2: awaiting cdiff, plan to dc home Time: 14:31 Medications Administered Discontinued Medications Generic Name Dose Route Start Last Admin Trade Name Freq PRN Reason Stop Dose Admin Oxycodone HCl 10 mg 02/20/23 12:37 02/20/23 12:58 Oxycodone Hcl Immed Release 5 Mg Tablet PO 02/20/23 12:38 10 mg ONCE ONE Administration Oxycodone HCl 10 mg 02/20/23 14:43 02/20/23 14:56 Oxycodone Hcl Immed Release 5 Mg Tablet PO 02/20/23 14:44 10 mg ONCE ONE Administration Medical Decision Making Differential Diagnosis Differential Diagnoses: The differential diagnosis associated with the presentation includes (perforated bowel, colitis, cdiff, rectal abscess all considered) Admission/Observation Consideration of admission/observation: Escalation of care including admission/observation considered (upon arrival patient was considered for admission) Lab Data MDM Lab Attestation statement: I reviewed the patient's lab results. (normal WBC, normal lfts) 02/20/23 13:06 02/20/23 13:06 Labs: Lab Results 02/20/23 02/20/23 Range/Units 13:06 13:57 WBC 8.1 (4.8-10.8) X10*3/uL RBC 5.29 (4.20-5.50) X10*6/uL Hgb 9.9 L (12.0-16.0) g/dl Hct 34.0 L (37.0-47.0) % MCV 64.3 L (80.0-98.0) fL MCH 18.7 L (27.0-33.0) pg MCHC 29.1 L (31.0-35.0) g/dl RDW 26.8 H (11.0-16.0) % Plt Count 288 (160-400) X10*3/uL MPV Not Reportable Immature Gran % (Auto) 0.2 (0.0-0.4) % Neut % (Auto) 65.5 (45-73) % Lymph % (Auto) 24.9 (20-40) % [place] % (Auto) 7.5 (2-11) % Eos % (Auto) 1.7 (0-4) % Baso % (Auto) 0.2 (0-2) % Lymph # (Auto) 2.0 (1.2-4.9) X10*3/uL [place] # (Auto) 0.6 (0.1-1.2) X10*3/uL Eos # (Auto) 0.1 (0.0-0.4) X10*3/uL Baso # (Auto) 0.0 (0.0-0.2) X10*3/uL Abs Immat Gran (auto) 0.02 (0.00-0.03) X10*3/uL Absolute Neuts (auto) 5.3 (2.0-8.3) x10*3/uL Absolute Nucleated RBC 0.000 (0.0-0.012) X10*3/uL Nucleated RBC % (auto) 0.0 (0.0-0.2) /100WBC ESR 12 (0-20) MM/HR Sodium 143 (135-145) mmol/L Potassium 3.6 (3.3-5.1) mmol/L Chloride 109 H (96-108) mmol/L Carbon Dioxide 24 (22-29) mmol/L Anion Gap 14 (12-20) BUN 4 L (9-16) mg/dL Creatinine 0.57 (0.5-1.4) mg/dL Estim Creat Clear Calc 95.6 Estimated GFR > 60 Random Glucose 85 (60-115) mg/dL Calcium 9.4 (8.4-10.2) mg/dL Total Bilirubin 0.3 (0.0-1.0) mg/dL AST 13 (5-31) U/L ALT 13 (0-31) U/L Alkaline Phosphatase 68 (39-117) U/L C-Reactive Protein 3.70 H (< or = 0.50) mg/dL Total Protein 7.5 (6.5-8.0) g/dL Albumin 4.0 (3.5-5.0) g/dL Lipase 27 (8-78) U/L Urine Color Yellow Urine Appearance Cloudy Urine pH 7.5 (5.0-9.0) Ur Specific [place] 1.015 (1.005-1.025) Urine Protein Negative (Neg-Trace) mg/dL Urine Glucose (UA) Negative (Negative) mg/dL Urine Ketones Negative (Negative) mg/dL Urine Blood Small (1+) H (Negative) Urine Nitrite Negative (Negative) Ur Leukocyte Esterase Trace H (Negative) Urine RBC 11-20 H (0-2) /HPF Urine WBC 11-20 H (0-5) /HPF Ur Squamous Epith Cells 6-10 (0-2) /HPF Urine Bacteria Trace (None Seen) Hyaline Casts 0-2 (0-2) /LPF Urine Test NEGATIVE (NEGATIVE) Tests considered The following testing was considered but not selected: ct of abdomen considered but patient clinically improved compared to last visit Chronic Conditions Patient?s care impacted by: Other (crohns and pyoderma gangrenosum) Social Determinants Patient?s care significantly limited by Social Determinants of Health including: Low income Discharge Plan Discharge Clinical Impression: Crohn's disease, Pyoderma gangrenosum, Malnutrition Patient Disposition: Still a Patient Prescriptions: No Action Cimzia Starter Kit 400 mg/2 mL (200 mg/mL x 2) syringe kit 400 mg subcut Q2W Qty: 3 0RF Rx Instructions: administer as 2 equally divided doses at 2 different sites in abdomen or thigh Pentasa 250 mg Capsule, Extended Release 500 mg PO TID Qty: 90 1RF ferrous sulfate 324 mg (65 mg iron) tablet,delayed release (DR/EC) 324 mg PO DAILY Qty: 30 0RF ondansetron 4 mg tablet,disintegrating 4 mg PO Q6-8H PRN (Reason: nausea and vomiting) Qty: 14 0RF Dificid 200 mg Tablet 200 mg PO BID Qty: 3 0RF Creon 12,000-38,000 -60,000 unit Capsule,Delayed Release(Dr/Ec) 1 cap PO TIDWM 30 Days Qty: 90 0RF omeprazole 20 mg Capsule,Delayed Release(Dr/Ec) 20 mg PO DAILY@0630 30 Days Qty: 30 0RF Santyl 250 unit/gram Ointment 1 appl topical DAILY Qty: 90 0RF Protocol: Apply to: Apply to: eschar areas only on right leg daily - thick layer of cream on it. prednisone 10 mg tablet See Taper PO DIRECTED Qty: 42 0RF Taper: Prednisone 30 mg daily for 7 Days and 0 Hour 20 mg daily for 7 Days and 0 Hour 10 mg daily for 7 Days and 0 Hour Rx Instructions: see taper instructions (DME) Xeroform Petrolatum Dressing 5 X 9 bandage See Rx Instructions .Route Qty: 50 0RF Rx Instructions: As directed zolpidem [Ambien] 5 mg tablet 5 mg PO BEDTIME Qty: 14 0RF Rx Instructions: may repeat once if no response in 30-60 minutes oxycodone 5 mg tablet 5 mg PO DAILY PRN (Reason: pain (scale score 7-10)) Qty: 20 0RF Rx Instructions: Partial Fill upon patient request.
[2023-02-20 11:10] VITALS: BP 124/85; PULSE 103; RESP 16; TEMP 36.9; O2SAT 100
--- NOTE | 2023-02-20 11:25 | PC.NURSE ---
pt is alert and oriented, skin appropriate for ethnicity, respirations even and unlabored, pt reports defused abd pain for about 3-4 days, with diarrhea - liquid consistency in her colostomy bag on her right sided of the abd with blood in the stool, states that she feels like she needs to have a bowel movement from the rectal area but that has been surgically closed for years also having nausea pt has a chronic wound on her right lower extremities, foul order coming from the wound, according to the dr doyle this leg wound appears to be looking better then last time chaperoned dr doyle during a rectal exam medical recruiter at bedside as well
--- NOTE | 2023-02-20 11:54 | MHC.EDTECH ---
attempted to draw blood wasn't successful, patient denies second attempt to draw blood
--- NOTE | 2023-02-20 11:55 | PC.NURSE ---
pt is a hard stick, merlyn pct attempted and was unsuccessful at this time, pt refusing to attempt again at this time, md barnhart
--- NOTE | 2023-02-20 11:57 | MHC.EDTECH ---
this pct attempts blood draw per request from pct [facility]acho. patient is a difficult stick, and they are not allowing draws on their left arm. this pct is unsuccessful on first attempt on right lower arm. patient does not allow further attempts by this pct. rn and aware.
--- NOTE | 2023-02-20 11:59 | MHC.EDTECH ---
Called phlebotomy to send someone to draw labs, & reported that two techs try to attempt to draw her labs.
[2023-02-20] MEDS: oxyCODONE HCl Immed Release 5 MG TABLET 10 MG PO ×2 (12:58→14:56)
[2023-02-20 13:11] LABS: MANUAL DIFF FLAG NO
[2023-02-20 13:14] LABS: Basophils Percent Auto 0.2 % (0-2); Eosinophils Absolute Auto 0.1 X10*3/uL (0.0-0.4); Eosinophils Percent Auto 1.7 % (0-4); Hemoglobin 9.9 g/dl (12.0-16.0); Imm Gran Abs Auto 0.02 X10*3/uL (0.00-0.03); Imm Gran Pct Auto 0.2 % (0.0-0.4); Lymphocytes Percent Auto 24.9 % (20-40); Mean Corpuscular HGB Conc 29.1 g/dl (31.0-35.0); Mean Corpuscular Hemoglobin 18.7 pg (27.0-33.0); Monocytes Absolute Auto 0.6 X10*3/uL (0.1-1.2); Monocytes Percent Auto 7.5 % (2-11); Neutrophils Absolute Auto 5.3 x10*3/uL (2.0-8.3); Neutrophils Percent Auto 65.5 % (45-73); Platelet Count 288 X10*3/uL (160-400); Red Blood Count 5.29 X10*6/uL (4.20-5.50); Red Cell Distribution Width 26.8 % (11.0-16.0); White Blood Count 8.1 X10*3/uL (4.8-10.8)
[2023-02-20 13:17] LABS: Mean Corpuscular Volume 64.3 fL (80.0-98.0)
[2023-02-20 13:28] LABS: Alanine Aminotransferase 13 U/L (0-31); Alkaline Phosphatase 68 U/L (39-117); Anion Gap 14 (12-20); Aspartate Amino Transferase 13 U/L (5-31); Bilirubin Total 0.3 mg/dL (0.0-1.0); Blood Urea Nitrogen 4 mg/dL (9-16); Calcium 9.4 mg/dL (8.4-10.2); Carbon Dioxide 24 mmol/L (22-29); Chloride 109 mmol/L (96-108); Creatinine Clr Calc Pharmacy 95.6; Estimated Glomerular Filt Rate > 60; Glucose Random 85 mg/dL (60-115); Lipase 27 U/L (8-78); Potassium 3.6 mmol/L (3.3-5.1); Sodium 143 mmol/L (135-145); Total Protein 7.5 g/dL (6.5-8.0)
[2023-02-20 13:53] VITALS: BP 123/83; PULSE 81; RESP 16; TEMP 37; O2SAT 100
[2023-02-20 13:53] LABS: Erythrocyte Sedimentation Rate 12 MM/HR (0-20)
[2023-02-20 14:18] LABS: Appearance Urine Cloudy; Color Urine Yellow; Glucose Urine UA Negative (Negative); Leukocyte Esterase Urine Trace (Negative); Nitrite Urine Negative (Negative); PH 7.5 (5.0-9.0); Specific Gravity - Urine 1.015 (1.005-1.025); UMIC TRIGGER UACC YES; UPreg QC Valid YES; Urine Blood Small (1+) (Negative); Urine Ketones Negative (Negative); Urine Pregnancy NEGATIVE (NEGATIVE); Urine Protein Negative (Neg-Trace)
[2023-02-20 14:46] LABS: Bacteria Urine Trace (None Seen); Hyaline Casts Urine 0-2 /LPF (0-2); UACC Culture Trigger YES
[2023-02-20 15:08] VITALS: BP 124/88; PULSE 75; RESP 15; TEMP 36.6; O2SAT 99
--- NOTE | 2023-02-20 15:09 | PC.NURSE ---
Assumed care of patient at 1500, patient resting on stretcher reporting 10/10 pain in abdomen and R leg. Pt verbalizes that the oxycodone she received earlier minimally helped. Pt laying on stretcher on phone, respirations even and unlabored, skin pwd, alert and oriented x4. Pt requested that her prescriptions get sent to [facility] of [facility]
[2023-02-21 09:14] LABS: Adenovirus F 40/41 Not Detected (Not Detect.); Astrovirus Not Detected (Not Detect.); Campylobacter Not Detected (Not Detect.); Cryptosporidium Not Detected (Not Detect.); Cyclospora cayetanensis Not Detected (Not Detect.); E. coli EAEC Not Detected (Not Detect.); E. coli EPEC Not Detected (Not Detect.); E. coli ETEC Not Detected (Not Detect.); E. coli STEC Not Detected (Not Detect.); Entamoeba histolytica Not Detected (Not Detect.); Giardia lamblia Not Detected (Not Detect.); Norovirus GI/GII Not Detected (Not Detect.); Plesiomonas shigelloides Not Detected (Not Detect.); Rotavirus A Not Detected (Not Detect.); Salmonella Not Detected (Not Detect.); Sapovirus Not Detected (Not Detect.); Shigella sp./EIEC Not Detected (Not Detect.); Vibrio Not Detected (Not Detect.); Vibrio Cholerae Not Detected (Not Detect.); Yersinia enterocolitica Not Detected (Not Detect.)
== END 2023-02-20 17:17 | disposition home or self-care (01) ==
PROVIDERS: Physician Assistant; Emergency Provider Emergency Medicine
DX: K50.10 Crohn's disease of large intestine without complications (principal); L88 Pyoderma gangrenosum; M79.604 Pain in right leg; F17.210 Nicotine dependence, cigarettes, uncomplicated; Z71.6 Tobacco abuse counseling; Z79.899 Other long term (current) drug therapy
CPT/HCPCS: 36415; 80053; 81001; 81025; 83690; 85025; 85652; 86140; 87086; 87507; 99284

== ENCOUNTER 2023-02-28 10:13 | Outpatient (RCR) | payer OTHER, SELFPAY | END 2023-03-26 17:00 | disposition home or self-care (01) | LOC: HO.WCC 10:13 | PROVIDERS: Visit Provider Physician Assistant | DX: L97.812 Non-pressure chronic ulcer of other part of right lower leg with fat layer exposed (principal); L88 Pyoderma gangrenosum; K50.90 Crohn's disease, unspecified, without complications; Z79.52 Long term (current) use of systemic steroids; Z87.891 Personal history of nicotine dependence; Z79.899 Other long term (current) drug therapy | CPT/HCPCS: 17250 ==

== ENCOUNTER 2023-03-03 11:26 | Emergency (ER) | payer OTHER, SELFPAY ==
--- NOTE | ~2023-03-03 | CT_ITS ---
EXAMINATION: CT ABDOMEN AND PELVIS WITH CONTRAST CLINICAL INFORMATION: abdominal pain. kidney stones? Abscess? COMPARISON: 01/27/2023 TECHNIQUE: Multidetector volumetric imaging was performed from the superior aspect of the liver through the pubic symphysis following administration of 85 mL Omnipaque 300 intravenous contrast. Sagittal and coronal reformatted images were obtained on the technologist workstation.. This CT examination was performed using dose optimization techniques as appropriate, variously including the following: *Automated exposure control *Adjustment of mA and/or kV according to patient size (this includes techniques or standardized protocols for targeted exams where dose is matched to indication/reason for exam; i.e. extremities or head) *Use of iterative reconstruction technique DLP: 289 mGy-cm FINDINGS: LUNG BASES: The visualized lung bases are unremarkable. LIVER, GALLBLADDER, AND BILIARY TREE: The liver is normal in size, shape, and attenuation. No focal hepatic lesion or biliary ductal dilatation is present. Gallstones in the dependent aspect of the contracted gallbladder PANCREAS: Unremarkable. SPLEEN: Unremarkable. ADRENAL GLANDS: Unremarkable. KIDNEYS AND URETERS: The kidneys are normal in size, shape, and attenuation. No hydronephrosis, hydroureter, or calculi seen. No perinephric stranding. BLADDER: Unremarkable. 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 I do not appreciate any obstructive changes within the remaining bowel ABDOMINAL WALL: No significant hernia is appreciated. LYMPHOVASCULAR STRUCTURES: No lymphadenopathy. The aorta is unremarkable. Circumaortic left renal vein PELVIC VISCERA: Bilateral hydrosalpinx likely present. Uterus is anteroverted OSSEOUS STRUCTURES: Unremarkable. CT/CT abdomen pelvis w IV con IMPRESSION: Chronic appearing and postoperative changes as described. Bilateral hydrosalpinx grossly similar to the prior study although better delineated on today's examination with contrast. Otherwise I do not appreciate any acute intra-abdominal process. No obstructive changes to the kidneys. No renal or ureteric calculi.
[2023-03-03 12:23] VITALS: BP 109/71; PULSE 107; RESP 18; TEMP 37.1; O2SAT 100; BMI 17.7
--- NOTE | 2023-03-03 12:23 | ED.GENADULT ---
HPI - General Adult General Chief complaint: Abdominal Pain Stated complaint: chrome disease, abd pain/ leg pain Time Seen by Provider: 03/03/23 16:25 Source: patient Limitations: no limitations History of Present Illness HPI narrative: 37-year-old female history of Crohn's disease, C diff presents to ED for generalized abdominal pain. Patient states no fever or chills. Patient states no nausea or vomiting. patient denies any genital urinary symptoms. Patient presently not on any treatment for Crohn's disease but has follow-up with Gastroenterology to begin cimza. Patient states colostomy bag is flowing properly. Related Data Previous Rx's Medication Instructions Recorded ferrous sulfate 324 mg (65 mg 324 mg PO DAILY #30 tabs 01/18/23 iron) tablet,delayed release mesalamine 250 mg capsule,extended 500 mg (2 x 250 mg) PO TID #90 caps 01/18/23 release (Pentasa) ondansetron 4 mg disintegrating 4 mg PO Q6-8H PRN nausea and 01/21/23 tablet vomiting #14 tabs certolizumab pegol 400 mg/2 mL 400 mg (2 mL) subcut Q2W 3 doses 01/31/23 (200 mg/mL x2) subcutaneous #3 ea syringe kit (Cimzia Starter Kit) bismuth tribrom-petrolatum,wh 5 X #50 ea 02/06/23 9 bandage (Xeroform Petrolatum Dressing) collagenase clostridium histo. 250 1 appl topical DAILY #90 grams 02/06/23 unit/gram topical ointment (Santyl) fidaxomicin 200 mg tablet (Dificid) 200 mg PO BID #3 tabs 02/06/23 lydvrl-xkhfzbrm-syvuivo 1 cap PO TIDWM 30 days #90 caps 02/06/23 12,000-38,000-60,000 unit capsule,delayed rel (Creon) omeprazole 20 mg capsule,delayed 20 mg PO DAILY@0630 30 days #30 02/06/23 release caps prednisone 10 mg tablet See Taper PO DIRECTED #42 tabs 02/06/23 oxycodone 5 mg tablet 5 mg PO DAILY PRN pain (scale 02/12/23 score 7-10) #20 tabs oxycodone 5 mg tablet 5 mg PO Q6H PRN pain #30 tabs 02/20/23 zolpidem 5 mg tablet (Ambien) 5 mg PO BEDTIME #30 tabs 02/26/23 cefuroxime axetil 250 mg tablet 250 mg PO BID 7 days #14 tabs 03/03/23 ketorolac 10 mg tablet 10 mg PO QID PRN pain 5 days #20 03/03/23 tabs Allergies Allergy/AdvReac Type Severity Reaction Status Date / Time vancomycin Allergy Anaphylaxis Verified 02/17/23 05:25 Review of Systems Review of Systems: Abdominal pain Yes all other systems are reviewed and are negative PMFSH Past Medical History Medical History Clostridium difficile colitis Malnutrition CHINMAY (iron deficiency anemia) Microcytic anemia 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 History of small bowel obstruction Crohn's disease Surgical History H/O colectomy Social History Social History Household Members: None Housing: Apartment Do you presently have visiting nurse or other home services: No Alcohol intake: never Patient Tobacco Use Status: Current everyday Tobacco user Tobacco use type: Cigarette Cigarette Packs Per Day: 0.5 Cigarettes Per Day: 6 Smoked in Last 30 Days: Yes e-Cigarette/Vaping Use: Never Used Second Hand Smoke Exposure: Yes Use of substances other than those prescribed or required for medical reasons: No Substance Use Type: Marijuana Advance Directives: No Advance Directives Information Provided: No service: No Current occupational status: disabled Cognitive needs: No Hearing needs: No Vision needs: No Physical Exam ED Vital Signs: Vital Signs - 24 hr 03/03/23 19:11 03/03/23 22:24 03/03/23 23:06 Temperature 97.8 F Pulse Rate 85 82 75 Respiratory Rate 16 18 17 Blood Pressure 120/74 Pulse Oximetry 99 98 100 Oxygen Delivery Method Room Air Room Air Room Air BMI result Body Mass Index 17.7 Const General: cooperative, healthy appearing, comfortable, no acute distress, well developed, alert, awake and Physically active Orientation/consciousness: oriented to person, oriented to place, oriented to time and patient oriented x3 HENMT Head: Yes normal to inspection, Yes No palpable skull fracture present, Yes normocephalic, Yes atraumatic and No abrasion Eyes General: appearance normal, both eyes and all related structures Neck Neck: Yes normal visual inspection, Yes full ROM, Yes no lymphadenopathy, Yes no meningeal signs, Yes trachea midline, Yes supple, No anterior neck swelling and No tender Chest Chest palpation & inspection: normal inspection of the chest and normal palpation of entire chest wall Resp Effort & Inspection: normal respiratory effort and able to speak in complete sentences Auscultation: clear to auscultation bilaterally Cardio Jugular venous distension: no JVD Heart sounds: S1 normal heart sound present and S2 normal heart sound present GI Other: Colostomy bag is flowing Inspection: Yes normal to inspection and No abdominal wall ecchymosis Palpation (GI): Soft to palpation, not firm, Tenderness to palpation present (GI) (generalizzed), no guarding and not rigid General: Yes CVA tenderness (bilateral) Back/Spine/Pelvis Back: CVA tenderness (bilateral) Skin General skin exam: no rashes or lesions noted, elasticity normal and turgor normal Neuro General: oriented to person, oriented to place, oriented to time, patient oriented x3, gait normal, tone normal, moves all extremities, Normal light touch and pain sensation, no meningeal signs, no focal motor deficits, CN's II-XI intact bilaterally and normal sensation to monofilament Extrem General: Yes normal to inspection and Yes full ROM Psych Appearance: grossly normal, well kempt and not disheveled Course Course Course Narrative: RME- 37-year-old female past medical history significant for Crohn's disease presents for evaluation abdominal pain and diarrhea. She is due to see GI next week. Plan for labs, UA. Medications Administered Discontinued Medications Generic Name Dose Route Start Last Admin Trade Name Jose PRN Reason Stop Dose Admin Hydromorphone HCl 1 mg 03/03/23 18:23 03/03/23 18:47 Hydromorphone Hcl 1 Mg/Ml Syringe IVPUSH 03/03/23 18:24 1 mg ONCE ONE Administration Protocol Hydromorphone HCl 0.25 mg 03/03/23 21:40 03/03/23 22:15 Hydromorphone Hcl 0.5 Mg/0.5 Ml Syringe IVPUSH 03/03/23 21:41 0.25 mg ONCE ONE Administration Protocol Sodium Chloride 1,000 mls @ 999 mls/hr 03/03/23 19:27 03/03/23 22:49 Ns IV 03/03/23 20:27 Infused .Q1H1M STA Infusion Ceftriaxone Sodium 1 gm/ 50 mls @ 100 mls/hr 03/03/23 20:08 03/03/23 21:15 Sodium Chloride IV 03/03/23 20:37 Infused ONCE ONE Infusion Iohexol 100 ml 03/03/23 19:33 03/03/23 19:33 Iohexol 350 Mg/Ml 100 Ml Infus..Btl IV 03/03/23 19:34 85 ml ONCE ONE Administration Ketorolac Tromethamine 30 mg 03/03/23 20:08 03/03/23 20:20 Ketorolac Tromethamine 30 Mg/Ml Vial IVPUSH 03/03/23 20:09 30 mg ONCE ONE Administration Morphine Sulfate 4 mg 03/03/23 17:35 03/03/23 17:58 Morphine Sulfate 4 Mg/Ml Cartridge IVPUSH 03/03/23 17:36 Not Given ONCE ONE Protocol Morphine Sulfate 15 mg 03/03/23 22:37 03/03/23 22:49 Morphine Sulfate Immed Release 15 Mg Tablet PO 03/03/23 22:38 15 mg ONCE ONE Administration Ondansetron HCl 4 mg 03/03/23 17:35 03/03/23 17:58 Ondansetron Hcl 4 Mg/2 Ml Vial IVPUSH 03/03/23 17:36 4 mg ONCE ONE Administration Potassium Chloride 20 meq 03/03/23 22:13 03/03/23 22:49 Potassium Chloride Packet 20 Meq Packet PO 03/03/23 22:14 Not Given ONCE ONE Medical Decision Making Medical Decision Making MDM Narrative: 37-year-old female with history of Crohn's, C, Diif in the past and present colostomy bag presents to ED for generalized abdominal pain. Patient states no fever or chills. Patient states urine is dark. Initial UA shows UTI. Waiting for rest of labs. 10:47pm: Labs shows mild hypokalemia. Negative for elevated white blood cell count. Abdominal CT scan negative for any abscess or acute etiology. Once again UA shows UTI. Patient given IV antibiotics. Patient not septic. Patient given Dilaudid and oral morphine for pain. Not suspecting any small bowel obstruction. Negative for peritonitis or Crohn's abscess. Unlikely Crohn's exacerbation. Differential Diagnosis Differential Diagnoses: The differential diagnosis associated with the presentation includes (Crohn's, peritonitis, small bowel obstruction, abdominal abscess, kidney stone, pyelonephritis, UTI) Admission/Observation Consideration of admission/observation: Escalation of care including admission/observation considered Lab Data MDM Lab Attestation statement: I reviewed the patient's lab results. 03/03/23 17:18 03/03/23 17:18 Labs: Lab Results 03/03/23 03/03/23 Range/Units 16:17 17:18 WBC 9.6 (4.8-10.8) X10*3/uL RBC 6.14 H (4.20-5.50) X10*6/uL Hgb 11.4 L (12.0-16.0) g/dl Hct 39.5 (37.0-47.0) % MCV 64.3 L (80.0-98.0) fL MCH 18.6 L (27.0-33.0) pg MCHC 28.9 L (31.0-35.0) g/dl RDW 26.5 H (11.0-16.0) % Plt Count 454 H D (160-400) X10*3/uL MPV Not Reportable Immature Gran % (Auto) 0.2 (0.0-0.4) % Neut % (Auto) 61.3 (45-73) % Lymph % (Auto) 29.8 (20-40) % [place] % (Auto) 7.5 (2-11) % Eos % (Auto) 0.9 (0-4) % Baso % (Auto) 0.3 (0-2) % Lymph # (Auto) 2.9 (1.2-4.9) X10*3/uL [place] # (Auto) 0.7 (0.1-1.2) X10*3/uL Eos # (Auto) 0.1 (0.0-0.4) X10*3/uL Baso # (Auto) 0.0 (0.0-0.2) X10*3/uL Abs Immat Gran (auto) 0.02 (0.00-0.03) X10*3/uL Absolute Neuts (auto) 5.9 (2.0-8.3) x10*3/uL Absolute Nucleated RBC 0.000 (0.0-0.012) X10*3/uL Nucleated RBC % (auto) 0.0 (0.0-0.2) /100WBC Smear Tech's Comments VERIFIED ESR 14 (0-20) MM/HR Sodium 142 (135-145) mmol/L Potassium 3.2 L (3.3-5.1) mmol/L Chloride 106 (96-108) mmol/L Carbon Dioxide 26 (22-29) mmol/L Anion Gap 13 (12-20) BUN 6 L (9-16) mg/dL Creatinine 0.70 (0.5-1.4) mg/dL Estim Creat Clear Calc 77.1 Estimated GFR > 60 Random Glucose 83 (60-115) mg/dL Lactic Acid 0.9 (0.5-2.0) mmol/L Calcium 10.0 D (8.4-10.2) mg/dL Total Bilirubin 0.4 (0.0-1.0) mg/dL AST 15 (5-31) U/L ALT 10 (0-31) U/L Alkaline Phosphatase 77 (39-117) U/L C-Reactive Protein 1.27 H (< or = 0.50) mg/dL Total Protein 8.8 H (6.5-8.0) g/dL Albumin 4.4 (3.5-5.0) g/dL Lipase 25 (8-78) U/L Beta HCG, Quant < 2 mIU/mL Urine Color DK YELLOW Urine Appearance Cloudy Urine pH 6.5 (5.0-9.0) Ur Specific [place] 1.025 (1.005-1.025) Urine Protein 100 (2+) H (Neg-Trace) mg/dL Urine Glucose (UA) 100 H (Negative) mg/dL Urine Ketones Trace (Negative) mg/dL Urine Blood Large (3+) H (Negative) Urine Nitrite Positive H (Negative) Ur Leukocyte Esterase Large (3+) H (Negative) Urine RBC 11-20 H (0-2) /HPF Urine WBC 6-10 (0-5) /HPF Ur Squamous Epith Cells 11-20 (0-2) /HPF Calcium Oxalate Crystal Present Urine Bacteria 4+ (None Seen) Hyaline Casts 3-5 (0-2) /LPF Urine Test NEGATIVE (NEGATIVE) Independent Interpretation I performed an independent interpretation of an: CT Scan Radiology Impression Discussion of test interpretation with radiology: I have reviewed the radiologist's reading. External Record Review External record reviewed: Other (Prior ED visit) Discharge Plan Discharge Clinical Impression: Abdominal pain, UTI (urinary tract infection) Patient Disposition: Home, Self-Care Instructions: Urinary Tract Infection in Women (ED), Abdominal Pain (ED) Additional Instructions: Regrese al servicio de urgencias de inmediato si presenta hematuria macrosc?pica, dolor en el costado, fiebre, escalofr?os, n?useas, v?mitos que empeoran el dolor abdominal, incapacidad para tolerar alimentos s?lidos/l?quidos o cualquier otro s?ntoma preocupante. Fatoumata un seguimiento con el proveedor de atenci?n primaria y el gastroenter?logo. Prescriptions: New cefuroxime axetil 250 mg tablet 250 mg PO BID 7 Days Qty: 14 0RF ketorolac 10 mg tablet 10 mg PO QID PRN (Reason: pain) 5 Days Qty: 20 0RF No Action Cimzia Starter Kit 400 mg/2 mL (200 mg/mL x 2) syringe kit 400 mg subcut Q2W Qty: 3 0RF Rx Instructions: administer as 2 equally divided doses at 2 different sites in abdomen or thigh zolpidem [Ambien] 5 mg tablet 5 mg PO BEDTIME Qty: 30 0RF Rx Instructions: may repeat once if no response in 30-60 minutes Pentasa 250 mg Capsule, Extended Release 500 mg PO TID Qty: 90 1RF ferrous sulfate 324 mg (65 mg iron) tablet,delayed release (DR/EC) 324 mg PO DAILY Qty: 30 0RF ondansetron 4 mg tablet,disintegrating 4 mg PO Q6-8H PRN (Reason: nausea and vomiting) Qty: 14 0RF Dificid 200 mg Tablet 200 mg PO BID Qty: 3 0RF Creon 12,000-38,000 -60,000 unit Capsule,Delayed Release(Dr/Ec) 1 cap PO TIDWM 30 Days Qty: 90 0RF omeprazole 20 mg Capsule,Delayed Release(Dr/Ec) 20 mg PO DAILY@0630 30 Days Qty: 30 0RF Santyl 250 unit/gram Ointment 1 appl topical DAILY Qty: 90 0RF Protocol: Apply to: Apply to: eschar areas only on right leg daily - thick layer of cream on it. prednisone 10 mg tablet See Taper PO DIRECTED Qty: 42 0RF Taper: Prednisone 30 mg daily for 7 Days and 0 Hour 20 mg daily for 7 Days and 0 Hour 10 mg daily for 7 Days and 0 Hour Rx Instructions: see taper instructions (DME) Xeroform Petrolatum Dressing 5 X 9 bandage See Rx Instructions .Route Qty: 50 0RF Rx Instructions: As directed oxycodone 5 mg tablet 5 mg PO Q6H PRN (Reason: pain) Qty: 30 0RF Rx Instructions: Partial Fill upon patient request. oxycodone 5 mg tablet 5 mg PO DAILY PRN (Reason: pain (scale score 7-10)) Qty: 20 0RF Rx Instructions: Partial Fill upon patient request. Interventions: ED Discharge Assessment Last Done: 03/03/23 23:07 Discharge Date/Time: 03/03/23 23:08 Print Language: Hungarian
[2023-03-03 16:22] LABS: Appearance Urine Cloudy; Color Urine DK YELLOW; Glucose Urine UA 100 mg/dL (Negative); Leukocyte Esterase Urine Large (3+) (Negative); Nitrite Urine Positive (Negative); PH 6.5 (5.0-9.0); Specific Gravity - Urine 1.025 (1.005-1.025); UMIC TRIGGER UACC YES; Urine Blood Large (3+) (Negative); Urine Ketones Trace mg/dL (Negative); Urine Protein 100 (2+) mg/dL (Neg-Trace)
[2023-03-03 16:42] LABS: Bacteria Urine 4+ (None Seen); Calcium Oxalate Crystals Urine Present; UACC Culture Trigger YES
--- OUTSIDE RECORDS SUMMARY | 2023-03-03 16:51 | XMS_ITS | Continuity of Care Document ---
Author Name Unknown Organization [facility] Address [address] [place] [id number] Care Team Providers Care Hub Lead Name Role Phone Not on Staff, PCP Primary Care Physician Unavail able [place] [facility] [place](s): 02/15/23 - 02/17/[address] [address]- Encounter Diagnosis Crohn's colitis(Final) - 02/15/23 Abdominal pain(Final) - 02/15/23 Discharge Disposition: A-D/C Home Attending Physician: Laura Karimi MD Admitting Physician: Donnie Elder MD Referring Physician: Not on Staff, Referring MD Allergies, Adverse Reactions, Alerts Substance Reaction Severity Status vancomycin Active Medications Certolizumab = 200 mg, Subcutaneous Infusion, Had first infusion last week, pending 2nd infusion next week and subsequently every 28 days, 0 Refills, Maintenance, 02/15/23 23:50:00 EDT, Partial fill upon patient request if the prescription is for a schedule II opi... Start Date: 02/15/23 Status: Ordered Dilaudid Inj 1 mg, Injection, IV Push Slowly, Every 3 hours, PRN for Pain , Severe, Routine, 02/15/23 18:31:00 EDT Start Date: 02/15/23 Stop Date: 02/17/23 Status: Discontinued oxyCODONE 10 mg oral tablet 1 tablet = 10 mg, By Mouth, Every 8 hours, PRN Pain , Severe, for 5 days, # 15 tablet, 0 Refills, Acute 02/22/23 10:11:00 EDT, 02/17/23 10:11:00 EDT, Tablet, [facility], Partial fill upon patient request if the prescription is for a sche... Start Date: 02/17/23 Stop Date: 02/22/23 Status: Ordered predniSONE 5 mg oral tablet See Instructions, 40 Mg p.o. X1 week then 30 Mg p.o. X1 week then 25 Mg p.o. X1 week then 20 Mg p.o. X1 week then 15 mg p.o. X1 week then 10 mg p.o. X1 week and then 5 Mg p.o. X1 week, # 203 tablet, 0 Refills, Maintenance, 02/17/23 10:08:00 EDT, [facility]... Start Date: 02/17/23 Status: Ordered Results Radiology Reports * Exam Date Time Procedure Performing Provider Status 02/15/23 1:[address] Abd/Pelvis W/ IV Contrast Only Brie Luu; Dudley (Verified) Notes: (CT Abd/Pelvis W/ IV Contrast Only) Reason For Exam: diffuse abdominal pain, h/o crohns, recent obstruction in [facility];Other: RESULT: CT Abd/Pelvis W/ IV Contrast Only CT Abd/Pelvis W/ IV Contrast Only Hx of Present Illness: Pt reports hx of Crohn's. Today reporting all over abd pain with nausea and intermittent diarrhea. States on medicine for her Crohn's but has been having consistent pain since having a surgery several months ago.; Reason: Other:; diffuse abdominal pain, recent obstruction in [place]; Clinical Question(s): Obstruction; . History of total colectomy with end ostomy [place] in 2012, and did well for many years. Bowel obstruction post surgical intervention at [facility] in October 2022, with persistent pain. TECHNIQUE: Spiral CT through the abdomen and pelvis with IV contrast (Omnipaque) formatted in 3 planes. This study was performed without oral contrast. Weight- based protocol using automatic tube modulation was used to optimize exposure parameters. CTDIvol Body: 6.56 mGy, DLP Body: 336 mGy*cm. COMPARISON: None. FINDINGS: Signal Apprentice View Findings, Lines and Tubes: The distal end of a central line projects at the upper aspectof the right atrium on the topograms. Visualized Chest: Lung bases are clear. No pleural effusion. The heart is normal in size. No pericardial effusion. Diaphragm: Normal. Liver: Normal. Gallbladder: 9 mm radiodense dependent gallstone without gallbladder wall thickening or pericholecystic fluid. Bile ducts: No biliary ductal dilation. Spleen: Normal. Pancreas: Normal. Adrenal glands: Normal. Kidneys and ureters: No hydronephrosis, stones, or suspicious masses. Bladder: Normal. Reproductive organs: Posteriorly in the right adnexa superior to the uterus there is a bilobed hypodense structure measuring 4.5 x 2.4 cm that likely reflects the right ovary and a dominant follicle. Stomach, small bowel, and large bowel: The stomach is normal in appearance. The proximal small bowel is top normal in caliber measuring upto 3 cm in diameter but without evidence of wall thickening. Anteriorly within the pelvis, there are distended bowel loops filled with air and some mottled material, measuring up to 5.4 cm diameter in the coronal plane (series 602, image 38) and 2.5 cm in the AP direction, and without wall thickening; these are difficult to connect with other bowel loops but may reflect dilated mid to distal small bowel given the clinical history of total colectomy. There is a stoma in the right hemiabdomen with the entering loop apparently represent mildly and diffusely thickened distal small bowel. No pneumatosis. Colectomy, with distal anatomy difficult to discern. Extending from the region of the anal verge into the medial aspect of the proximal right thigh, there is a soft tissue attenuation tract within the subcutaneous fat without evidence of gas, or increased enhancement, may reflect a healed sinus tract. Appendix: Normal. Peritoneum and retroperitoneum: No ascites or pneumoperitoneum. No omental or mesenteric lesions. Lymph nodes: No enlarged lymph nodes. Blood vessels: Aorta normal. Circumaortic left renal vein. No evidence of venous thrombosis. Abdominal and pelvic wall: No hernia. Postoperative changes of the umbilicus. Stoma as above. Bones: No acute abnormality. IMPRESSION: Thickened distal ileum extending to the stoma, without evidence of obstruction or fistula, likely reflects a chronic inflammatory component of the patient's known Crohn disease. There are several loops of distended bowel in the anterior pelvis containing air and a small amount of mottled dependent material, but no wall thickening, probably in mid to distal ileum given the history of total colectomy. No evidence of obstruction, abscess, or free air. Cholelithiasis. WSN: [id number] Ordering Physician: Clovis Jones Dictated By: Valerio Pina MD Dictated Date/Time: 02/15/23 2:37 pm Reviewed By: Valerio Pina MD Signed By: Valerio Pina MD Signed Date/Time: 02/15/23 2:37 pm Transcribed By: ROBB Transcribed Date/Time: 02/15/23 2:37 pm Vital Signs Most recent to oldest [Reference Range]: 1 2 3 Height 158 cm (02/17/23 6:50 AM) 158 cm (02/17/23 3:47 AM) 158 cm (02/16/23 11:17 PM) Oxygen Saturation [94-100 %] 100 % (02/17/23 6:50 AM) 100 % (02/17/23 3:47 AM) 100 % (02/16/23 11:17 PM) Pulse Rate [55-90 bpm] 72 bpm (02/17/23 6:50 AM) 66 bpm (02/17/23 3:47 AM) 66 bpm (02/16/23 11:17 PM) Blood Pressure [90-138/55-84 mm Hg] 128/76mm Hg (02/17/23 6:50 AM) 119/65mm Hg (02/17/23 3:47 AM) 140/59mm Hg *H* (02/16/23 11:17 PM) Respiratory Rate [16-30 br/min] 20 br/min (02/17/23 9:30 AM) 20 br/min (02/17/23 6:50 AM) 18 br/min (02/17/23 6:23 AM) Temperature [96.8-100.4 DegF] 97.9 DegF (02/17/23 6:50 AM) 97.8 DegF (02/17/23 3:47 AM) 98.2 DegF (02/16/23 11:17 PM) Mode of Delivery (Oxygen) Room air (02/17/23 6:50 AM) Room air (02/17/23 3:47 AM) Room air (02/16/23 11:17 PM) Blood pressure sites Arm, left (02/17/23 6:50 AM) Leg, right (02/17/23 3:47 AM) Leg, left (02/16/23 11:17 PM) Temperature Route Oral (02/17/23 6:50 AM) Oral (02/17/23 3:47 AM) Oral (02/16/23 11:17 PM) Dry Weight 43.5 kg (02/15/23 3:36 PM) 43.5 kg (02/15/23 1:59 PM) 43.5 kg (02/15/23 9:28 AM) Dry Weight Obtained Via Patient/family s tated (02/15/23 9:28 AM) Admission evaluation note * Hever King MD: MODIFY Hever King MD: MODIFY, PERFORM Ebony MILLER, Laura Stokes: PERFORM, MODIFY Ebony MILLER, Laura Stokes: MODIFY Event Display: Admission Note Authored Date: Patient: ??PAZ MUÑOZ, PRESTON ? Age:??37 Years?Sex:??Female?:??1985?? History of Present Illness 37-year-old female with past medical history of Crohn's disease status post total colectomy with ileostomy in 2012, bowel obstruction status postsurgical intervention in October 2022 presented to the [facility] for ongoing abdominal pain since October 2022. She reports frequent nausea and vomiting with abdominal pain.??She reports that she has pain 15 to 20 minutes after eating. She reports taking Prednisone 30mg daily and Certolizumab (received first injection last week, plans to receive 2nd injection next??week and third injection two weeks later)??along with Oxycodone daily with no relief.??She has also noticed scant amount of blood in her ostomy bag once yesterday.?? Denies recent fevers, chills, sick contacts, arthralgia, oral ulcers, eye redness. ?? Social history: Current everyday smoker (5-6 cigs/day) since 15yo. Denies alcohol. Occasional marijuana use. Surgical history: As above Review of Systems ROS negative except as above Physical Exam Vitals & Measurements T:??98.0?F?? TMIN:??98.0?F?? TMAX:??99.1?F?? HR:??72??(Peripheral)?? RR:??16?? BP:??128/64?? SpO2:??100%?? General: Young female, resting in bed, mild distress due to pain,??NAD HEENT: Normocephalic, atraumatic. Mucous membranes moist. No oral ulcers. No evidence of eye redness/discharge. Cardiac: Regular rate and rhythm. No murmurs, rubs or gallops auscultated. Normal S1 and S2 heard. No JVD. Respiratory: Lung sounds clear to auscultation in all lobes bilaterally. Normal respiratory effort on room air. Abdomen: Moderate tenderness diffusely throughout abdomen, surgical scar across central abdomen, ostomy bag with stool that does not appear bloody.?? Extremities: RLE wrapped in JERMAN bandage (per photograph from pt, has extensive pyoderma gangrenosumon that extremity), LLE??atraumatic without tenderness or deformity. No swelling or erythema. Full range of motion is noted at all joints. Skin: Skin is warm and dry without rashes, lesions or bleeding phenomenon. Neurological: AAOx3. No focal deficits. Psychiatric: Normal mood and affect. Good judgement and insight.?? Assessment/Plan Crohn's disease with exacerbation: -ESR elevated to 35, CRP elevated to 2.4.?? Endorsing diffuse abdominal pain with occasional blood-streaked stools, not relieved on home regimen of steroids, certolizumab and oxycodone -No record of EGD/colonoscopy at [facility].?? Per patient report last scope was several years ago. -CT abdomen pelvis showing no evidence of obstruction, abscess or free air but showing chronic inflammatory changes consistent with patient's Crohn's disease. ?? Plan: -Start prednisone 40 mg IV daily -Dilaudid 1 mg every 3 as needed for severe pain -Obtain GI consult -Continue IV fluids ?? Chronic Medical Conditions: -Nicotine Use: Nicotine patch inpatient ?? Quality measures: DVT ppx: Heparin Diet: Regular Code: Full ?? Patient discussed with Dr King ?? Laura Beck MD PGYII Internal Medicine ?? The patient seen and examined on this date. The case reviewed in detail with admitting resident on this date. I reviewed and agree as above. Dvt, low risk. Hever King MD Problem List/Past Medical History Ongoing No qualifying data Crohn's disease Procedure/Surgical History Multiple abdominal surgeries Medications Inpatient 0.9% NaCL 1,000 mL, 1000 mL, IV Infusion Acetaminophen Tablet, 650 mg, By Mouth, Every 4 hours, PRN Dilaudid Inj, 1 mg= 1 mL, IV Push Slowly, Every 3 hours, PRN Docusate Sodium Capsule, 100 mg= 1 capsule, By Mouth, 2 times a day, PRN Heparin Inj, 5000 units= 1 mL, Subcutaneous Injection, 2 times a day Melatonin Tablet, 3 mg, By Mouth, Daily at bedtime, PRN MethylPREDNISolone Inj, 40 mg, IV Push, Daily MiraLax Powder, 17 Gm= 1 pack/packet, By Mouth, Daily, PRN NaCL 0.9% Flush, 3 mL, IV Push, Every 8 hours NaCL 0.9% Flush, 3 mL, IV Push, Every 8 hours, PRN Nicotine Topical, 21 mg, Topically, Daily Ondansetron Inj, 4 mg, IV Push Slowly, Every 30 minutes, PRN Remove Patch, 1 each, Topically, Daily Robitussin DM Liquid, 10 mL, By Mouth, Every 4 hours, PRN Senna Tablet, 8.6 mg= 1 tablet, By Mouth, 2 times a day, PRN Simethicone Tablet, 80 mg, Chew, 3 times a day, PRN Home No active home medications Allergies vancomycin Social History Nicotine use. Denies ETOH Family History No??Crohn's disease Lab Results Noted Diagnostic Results Noted Hospital Progress note * Julia Rowell: PERFORM, SIGN, VERIFY Event Display: Progress Note Hospital Authored Date: [id number] Patient: PRESTON CLINTON Age: 37 years Sex: Female : 1985 Associated Diagnoses: None Author: Julia Rowell Findings Narrative/Incidental Pt is A/O x4. Consistently complaining of abdominal pain, 6-12/05. PRN pain medication given every 3hours as requested. RLQ ileostomy, bag intact. Denies CP/ SOB/ dizziness or any weakness. Ambulating independently. Refused vital at night, says she wants to sleep. Safety maintained. Call romo within reach. . * Lisa MILLER, Ena: PERFORM Event Display: Progress Note Hospital Authored Date: [id number] Patient: ??PRESTON CLINTON ? Age:??37 Years?Sex:??Female?:??1985?? Subjective Patient seen and examined at bedside States she continues to have abdominal pain but nausea, vomiting improved. Able to tolerate regular diet. Patient was following with [facility] in [place] from [id number]. She had a surgery in October 2022 for reported bowel obstruction. Ever since her abdominal pain has not resolved completed. Moved to [facility] recently. Pt has been following with providers at [facility] [place]. Currently on IV steroids, IV pain medications. Consulted GI given the suspicion of inflammatory bowel disease flare. Review of Systems Ileostomy in the right lower quadrant- functioning well. All the other systems including General, HEENT, Cardiac, Respiratory, Gastrointestinal, Genito urinary, Neurological, Musculoskeletal, cutaneous systems are negative except as mentioned above. Objective Measurements?? Height: 158 cm (02/16/23) Dry Weight: 43.5 kg (02/15/23) ? Vital Signs?? Temperature: 98.2 DegF (02/16/23 07:23:00) Temperature Route: Oral (02/16/23 07:23:00) Pulse Rate: 84 bpm (02/16/23 07:23:00) Respiratory Rate: 18 br/min (02/16/23 13:44:00) Systolic Blood Pressure: 117 mm Hg (02/16/23 07:23:00) Diastolic Blood Pressure: 74 mm Hg (02/16/23 07:23:00) Blood pressure sites: Leg, left (02/16/23 07:23:00) Mean Arterial Pressure: 88 mm Hg (02/16/23 07:23:00) Pulse Pressure: 43 mm Hg (02/16/23 07:23:00) Oxygen Saturation: 98 % (02/16/23 07:23:00) Mode of Delivery (Oxygen): Room air (02/16/23 07:23:00) Early Warning Score: 0 (02/16/23 13:44:15) ? Physical Exam General: AAO X 3, not in acute distress HEENT: Normocephalic, Atraumatic, PEERLA, EOMI Neck: soft, supple Respiratory: CTA B/L, no wheezing, no crackles Cardiovascular: RRR, S1, S2 heard Gastrointestinal: Soft, diffusely tender, normal Bowel sounds, nondistended; ileostomy noted in theRLQ, attached to ostomy bag SALES AND MARKETING REPRESENTATIVE: Alert awake and oriented X 3 . No acute focal neurological deficits Musculoskeletal/Back: Range of motion all 4 extremities within normal limits Extremities: No pitting pedal edema, no calf tenderness. Assessment/Plan 37-year-old female with past medical history of Crohn's disease status post total colectomy with ileostomy in 2012, bowel obstruction status postsurgical intervention in October 2022 presented to the [facility] for ongoing abdominal pain since October 2022. She reports frequent nausea and vomiting with abdominal pain.??She reports that she has pain 15 to 20 minutes after eating. She reports taking Prednisone 30mg daily and Certolizumab (received first injection last week, plans to receive 2nd injection next??week and third injection two weeks later)??along with Oxycodone daily with no relief.? Crohn's disease with suspected flare ESR elevated to 35, CRP elevated to 2.4.?? Endorsing diffuse abdominal pain with occasional blood-streaked stools, not relieved on home regimen of steroids, certolizumab and oxycodone No record of EGD/colonoscopy at [facility].?? Per patient report last scope was several years ago. CT abdomen pelvis showing no evidence of obstruction, abscess or free air but showing chronic inflammatory changes consistent with patient's Crohn's disease. ?? Currently on methylprednisone??40 mg IV daily Dilaudid 1 mg every 3 as needed for severe pain Requested GI evaluation Continue IV fluids PRN meds for nausea/vomiting. ?? Nicotine Use: Nicotine patch inpatient Strict smoking cessation advised ?? DVT ppx: Heparin ?? Diet: Regular ?? Code: Full ?? OMN: IV fluids, serial abdominal exam, f/u with GI Disposition planning. * Joyce Sifuentes RN: VERIFY, PERFORM, SIGN Event Display: Progress Note Hospital Authored Date: [id number] Patient: PRESTON CLINTON Age: 37 years Sex: Female : 1985 Associated Diagnoses: None Author: Joyce Sifuentes RN Findings Narrative/Incidental Pt A/Ox4, no c/o SOB. no CP, V/S stable , Colostomy bag intact, c/o abdominal pain in all quadrantsgiven 1mg Dilaudid every 3 hours. No events of N/V. Toelrating crakers and juices. Pt comfortable resting. Refuses bld draw. all needs met. Callbell within reach. Continously monitored. Consult note * Diana MILLER, Jose H: PERFORM Event Display: Consultation Note Authored Date: [id number] Patient: ??PAZ MUÑOZ, PRESTON ? Age:??37 Years?Sex:??Female?:??1985?? Referrring Provider Not on Staff, Referring MD Reason for Consultation IBD flare? History of Present Illness ?? 37-year-old female with a past medical history of Crohn's disease (diagnosed 2012) s/p total colectomy with ileostomy (2012), recent bowel obstruction requiring surgical intervention (October 2022 at [facility]), history of pyoderma gangrenosum, presented to the hospital with chronic abdominal pain. ?? Patient was diagnosed in 2012 when she underwent a total colectomy and ileostomy.?? She also has a history of pyoderma gangrenosum according to patient.?? In the past patient has tried multiple medications including Remicade and Humira which did not work well for her and then she transition to certo lizumab injections which worked well for her.?? Patient recently moved to the area and establish care at [facility].?? She was on certolizumab injections till July when she ran out.?? She recently established care at [facility] and then restarted her cetuximab injections just last week.?? It seems patient is currently on prednisone taper and was taking 30 Mg at the time of admission for possible flare.?? Patient states that recent bowel obstruction in October was severe and she underwent surgical intervention at [facility] (records not available).?? Ever since his surgery patient has been complaining of chronic abdominal pain all over.?? Her last colonoscopy was almost a year ago andher last EGD was many years ago.?? Patient states that the pain is constant and she came to the ED because of continuous pain which was worse.?? She also endorses nausea and episodes of emesis.?? Patient seems to be on oxycodone for chronic pain.?? She smokes cigarettes and marijuana but does not drink alcohol regularly.?? No family history of IBD according to patient.?? She states that over the last few weeks she has been having more diarrhea.?? She will change her bag 3???4 times a day usually but has been changing it almost 8???10 times a day and also noted some streaks of blood in the ostomy.?? She has chronic abdominal pain but reports slight worsening over the last 1 week.?? Patient was admitted to the hospital service was found to have normal WBC count, hemoglobin 9.7 with low MCV.?? She was found to have a elevated CRP of 2.4 and a ESR of 35.?? She underwent a CT abdomen and pelvis which showed thickened distal ileum extending to the stoma without obstruction or fistula.?? GI was consulted for further evaluation and management of IBD.?? Patient is currently receiving IV pain medications and IV prednisone for suspected IBD flare. ? RESULT: CT Abd/Pelvis W/ IV Contrast Only ?? IMPRESSION: Thickened distal ileum extending to the stoma, without evidence of obstruction or fistula, likely reflects a chronic inflammatory component of the patient's known Crohn disease. There are several loops of distended bowel in the anterior pelvis containing air and a small amount of mottled dependent material, but no wall thickening, probably in mid to distal ileum given the history of total colectomy. ?? No evidence of obstruction, abscess, or free air. ?? Review of Systems Full review of systems completed and was negative except as mentioned above in HPI Physical Exam Vitals & Measurements T:??98.0?F?? TMIN:??97.8?F?? TMAX:??98.2?F?? HR:??80??(Peripheral)?? RR:??20?? BP:??128/64?? SpO2:??100%?? Constitutional: Alert, in no distress. malnourished Mental Status: Oriented to person, place and time. Respiratory: Clear to auscultation. Gastrointestinal: Abdomen soft,?? non-distended. Ostomy bag in place and surgical mohan noted. No pulsatile mass. No hepatosplenomegaly. Tender to palpation and patient winces on even slight touch Neurologic: Cranial nerves II-XII grossly intact. No focal neurological deficits. Moves all extremities spontaneously. Musculoskeletal: No cyanosis or clubbing. No gross deformities. Normal range of motion. Psychiatric: Appropriate mood and affect Assessment/Plan ?? Crohn's disease IBD flare History of total colectomy with ileostomy, recent bowel obstruction with surgical intervention ?? 37-year-old female with a past medical history of Crohn's disease (diagnosed 2012) s/p total colectomy with ileostomy (2012), recent bowel obstruction requiring surgical intervention (October 2022 at [facility]), history of pyoderma gangrenosum, presented to the hospital with chronic abdominal pain which has been continuous since her surgery in October 2022.?? Patient was doing well on certolizumab injections till July when she ran out of it and did not have a ancillary specialist.?? She recently established care at [facility] and restarted certolizumab injections last week.?? It seems she is being treated outpatient for an IBD flare with p.o. prednisone.?? Coming to the hospital with increasing diarrhea, some reports of blood-streaked stool and continues diffuse abdominal pain.?? Patient likely has an ongoing flare given her elevated inflammatory markers.?? She feels better on IV prednisone in the hospital.?? She will need to give time for the certolizumab to improve her symptoms and in the meantime would benefit from a prednisone taper. ?? Plan: Likely IBD flare and we would recommend steroid taper Give 40 Mg IV Solu-Medrol tomorrow Start prednisone taper on 02/18 as below: 40 Mg p.o. X1 week 30 Mg p.o. X1 week 25 Mg p.o. X1 week 20 Mg p.o. X1 week 15 mg p.o. X1 week 10 mg p.o. X1 week 5 Mg p.o. X1 week Recommend a low residue diet Patient should follow-up outpatient with a ancillary specialist and continue outpatient therapy GI will sign off at this time ? Thank you for referring this patient to the Division of Gastroenterology, [facility].?Please feel free to reach out with any questions or concerns. ?? The patient's case and management was discussed with Dr. Isaias Portillo MD Gastroenterology Fellow PGY4?? Division of Gastroenterology, [facility] [email or web address] (The above document was created using [employer] voice recognition software. As such, air defence officer errors may occur. Please contact the provider for additional questions and if clarification is needed.)?? Problem List/Past Medical History Ongoing No qualifying data Medications Inpatient 0.9% NaCL 1,000 mL, 1000 mL, IV Infusion Acetaminophen Tablet, 650 mg, By Mouth, Every 4 hours, PRN Dilaudid Inj, 1 mg= 1 mL, IV Push Slowly, Every 3 hours, PRN Docusate Sodium Capsule, 100 mg= 1 capsule, By Mouth, 2 times a day, PRN Heparin Inj, 5000 units= 1 mL, Subcutaneous Injection, 2 times a day Melatonin Tablet, 3 mg, By Mouth, Daily at bedtime, PRN MethylPREDNISolone Inj, 40 mg, IV Push, Daily MiraLax Powder, 17 Gm= 1 pack/packet, By Mouth, Daily, PRN NaCL 0.9% Flush, 3 mL, IV Push, Every 8 hours NaCL 0.9% Flush, 3 mL, IV Push, Every 8 hours, PRN Nicotine Topical, 21 mg, Topically, Daily Remove Patch, 1 each, Topically, Daily Robitussin DM Liquid, 10 mL, By Mouth, Every 4 hours, PRN Senna Tablet, 8.6 mg= 1 tablet, By Mouth, 2 times a day, PRN Simethicone Tablet, 80 mg, Chew, 3 times a day, PRN Home Certolizumab, 200 mg, Subcutaneous Infusion oxyCODONE 5 mg oral capsule, 5 mg= 1 capsule, By Mouth, Every 6 hours, PRN predniSONE 10 mg oral tablet, 30 mg= 3 tablet, By Mouth, Daily Allergies vancomycin * Isaias Dixon MD, Johnnie Womack: PERFORM Event Display: Consultation Note Authored Date: Attending Attestation:??I have seen and evaluated this patient. ??I have discussed the case and itsmanagement with the fellow and agree with the findings and plan as documented in the fellow???s note.?? Complex case.?? Chronic pain is difficult to delineate from active disease. Markers present to suggest active inflammation and potential benefit from augmented steroid course as outlined here. ??Follow up with [facility] team. ?? Johnnie Esparza MD Note * Laura Karimi MD: PERFORM Event Display: Discharge/Transfer Note Hospital Authored Date: [id number] Patient: ??PAZ MUÑOZ, PRESTON ? Age:??37 Years?Sex:??Female?:??1985?? Patient Information Discharge Location: [facility] Primary Care Physician: Not on Staff, PCP Admit Date/Time: 02/15/23 09:23 Discharge Disposition Discharge Disposition: ?? Discharge Diagnosis Acute flareup of Crohn's disease ?? _ Discharge Medications Certolizumab?200?Milligram?Subcutaneous Infusion?Had first infusion last week, pending 2nd infusion next week and subsequently every 28 days Oxycodone (oxyCODONE 10 mg oral tablet)?1?tab(s)?10?Milligram?By Mouth?Every 8 hours?as needed?Pain , Severe?for 5?Days PredniSONE (predniSONE 5 mg oral tablet)?See Instructions?40 Mg p.o. X1 week then 30 Mg p.o. X1 week then 25 Mg p.o. X1 week then 20 Mg p.o. X1 week then 15 mg p.o. X1 week then 10 mg p.o. X1 week and then 5 Mg p.o. X1 week ? Medications Started Prednisone and oxycodone 10 mg Medications Discontinued oxycodone 5 mg Allergies Allergies ?(Active and Proposed Allergies Only) vancomycin? (Severity: Unknown severity, Onset: Unknown) ? PCP Follow-Up/Heads-Up anemia Pain management Hospital Course 37-year-old female with past medical history of Crohn's disease status post total colectomy with ileostomy in 2012, bowel obstruction status postsurgical intervention in October 2022 presented to the [facility] for ongoing abdominal pain since October 2022. She reported frequent nausea and vomiting with abdominal pain.? Crohn's disease with suspected flare ESR elevated to 35, CRP elevated to 2.4.?? Endorsed diffuse abdominal pain with occasional blood-streaked stools, not relieved on home regimenof steroids, certolizumab and oxycodone No record of EGD/colonoscopy at [facility].?? Per patient report last scope was several years ago. CT abdomen pelvis showing no evidence of obstruction, abscess or free air but showing chronic inflammatory changes consistent with patient's Crohn's disease. GI was consulted and patient was given IV steroids Patient to be started on prednisone taper as advised by GI and to have outpatient follow-up with gastroenterology which I advised the patient. ??Patient follows with GI at [facility] Patient is tolerating diet??without any nausea or vomiting. ??She still has abdominal pain.?? I checked [place]PAT??and patient was given??20 tablets for 20 days of oxycodone.?? Because of acute flareup??and severe pain that she has experienced I have given her??5 days of additional oxycodone??with rec ommendation to take??as needed??every 8hr, 10 mg tablet??and not to exceed this dose.?? Patient agreed. ??I advised her to follow-up with her primary care physician and GI??for further pain management ?MassPAT checked and pt given less than 5-7 days supply of narcotics after explaining side effects ? Patient was advised to follow-up with her own ancillary specialist as outpatient ?? Today feels??better without any nausea or vomiting but still has abdominal pain. Having stable vitals. CTA BL, S1, S2 no GMR.Abd SOft, mild diffuse tenderness without rebound, guarding or rigidity, BS+ve, AAO3. no pedal edema ?? Objective . Physical Exam Pending Results No Pending Results Patient Education Titles Prednisone Oral Tablet?? Crohn's Disease?? Discharge Instructions for Crohn's Disease?? Post Discharge Care Discharge ?02/17/23 9:54:00 EDT Discharge Prescriptions ?ePrescribed, 02/17/23 9:54:00 EDT Home Health Face to Face ^HomeHealthFTF 35??minutes spent on discharge * Leonela Rivera RN: PERFORM Event Display: Discharge/Transfer Note Hospital Authored Date: [id number] Nursing Discharge Note Entered On: 02/17/2023 10:27 EDT Performed On: 02/17/2023 10:26 EDT by Leonela Rivera RN Nursing Discharge Note 2 Discharge Time : 02/17/2023 10:27 EDT Discharge Level of Care at Discharge : Home/Shelter/Foster Care Patient Left Unit Via : Ambulatory Patient Accompanied Off Unit with : Responsible adult DC Instructions Provided & Signed by Pt : Yes Patient Understands D/C Instructions : Yes Patient Instructions Discharge Signed : Yes Did Pt have Specialty Bed or Wound Vac : No Leonela Rivera RN - 02/17/2023 10:26 EDT * Leonela Rivera RN: PERFORM Event Display: Patient Education/Instruction Authored Date: [id number] Inpatient Adult Discharge Instructions [place] [id number] Name: PRESTON MUÑOZ : 1985 Visit: 02/15/2023 09:23:00 Current Date: 02/17/2023 10:13 Account: [id number] Inpatient Adult Discharge Instructions We would like to thank you for allowing us to assist you with your healthcare needs. The following includes patient education materials and information regarding your injury/illness. Our entire staffstrives to provide an excellent experience for our patients and their families. PLEASE ENSURE YOU FOLLOW-UP PER THE INSTRUCTIONS BELOW! ?? YOUR OPINION IS IMPORTANT TO US! Please complete the survey you may receive by mail or email. Your feedback will be used to make improvements to the healthcare experiences of our patients and their families. Surveys are administered by [employer] ?? If further treatment with your primary care physician or another doctor is recommended, it is important for you to keep the appointment. Call your primary care physician or return to the Emergency Department immediately if your condition worsens, fails to improve, or new symptoms develop. If you need to find a doctor, you can call [facility] Link for a referral at [phone] or toll free at [phone] or log in to [email or web address].. ?? [facility], in keeping with [facility] guidance, no longer requires face masks for staff, patientsor visitors in most situations. Similiar to time spent indoors at other locations, there is the chance that you were exposed to repiratory viruses during your time with us (such as flu or COVID-19). If you develop symptoms concerning for a viral respiratory infection, please seek testing (and treatment if indicated) from your medical provider or home test kit. ?? You can view and manage your care through the patient portal or by using a health care gilbert of your choosing. [employer] is a website that allows you to securely view your medical information including your hospital discharge summary, office visit summaries, medications and follow-up visits. You can also request appointments, renew medications, and request access to your medical information using a health care gilbert of your choosing, or just ask a question. You can enroll at [email or web address] or register during your next office visit. You have been discharged from [facility], Patient Care Unit: D3B. If you have any questions regarding these instructions after you leave, please call us and we will be happy to assist you. [facility] Your Care Team Attending Physician Laura Karimi MD Consulting Providers Johnnie Esparza Jr, MD Discharging Providers Laura Karimi MD Reason for Admission Abdominal pain Your Diagnosis Crohn's colitis Abdominal pain Tests Performed Below is a partial list of the tests performed during your hospitalization. You may have had other tests and procedures not included in this list. Please discuss all test results with your provider. Basic Metabolic Panel CBC w/ Differential Comprehensive Metabolic Panel COVID-19, RSV, and Flu A/B, Rapid PCR CRP ESR HOLD GEL TUBE HOLD LAVENDER TUBE Lactate Level Lipase Serum Qualitative Urinalysis w/hold for Urine Culture CT Abd/Pelvis W/ IV Contrast Only Primary Care Provider Not on Staff, PCP Advance Directive Health Care Proxy on File No Patient refuses to discuss Discharge Vitals Temperature: 97.9 DegF Height: 158 cm Pulse Rate: 72 bpm ?? Respiratory Rate: 20 br/min ?? Systolic Blood Pressure: 128 mm Hg ?? Diastolic Blood Pressure: 76 mm Hg ?? Oxygen Saturation: 100 % ?? Studies Pending All tests and labs ordered during this hospital stay have been completed unless listed below. Please discuss all pending results with your provider listed above in these instructions. ?? No incomplete studies found What to do next Instructions From Your Doctor Discharge Orders Discharge Medications PRESTON CLINTON :1985 Visit Date:02/15/2023 Medications: Please continue your medications until treatment is completed or stopped by your provider. Medications not listed below should be discontinued. Discuss any questions related to medications with your provider. What How Much When Instructions Next Dose Changed Oxycodone (oxyCODONE 10 mg oral tablet) 1 tab(s) Oral Every 8 hours as needed for Pain , Severe Duration: 5 Days Pickup at [facility] 3 as needed Changed PredniSONE (predniSONE 5 mg oral tablet) See instructions 40 Mg p.o. X1 week then 30 Mg p.o. X1 week then 25 Mg p.o. X1 week then 20 Mg p.o. X1 week then 15 mg p.o. X1 week then 10 mg p.o. X1 week and then 5 Mg p.o. X1 week ?? Pickup at [facility] 3 as directed Unchanged Certolizumab 200 Milligram Subcutaneous Infusion Had first infusion last week, pending 2nd infusion next week and subsequently every 28 days ?? resume schedule Pharmacy Information [facility] 3: [address], [place] [id number] [phone] Test Results Below is a partial list of the most recent Laboratory test results done prior to this discharge. You may have had other tests and procedures not included in this list. Please discuss all test resultswith your provider. Est Creatinine Clearance - 133.52 mL/min (02/15/2023) Basic Metabolic Panel (02/17/2023) ???Sodium - 143 mmol/L???Potassium - 4.2 mmol/L???Chloride - 109 mmol/L???Bicarbonate Level - 23 mmol/L???Anion Gap - 11???Glucose Level - 97 mg/dL???BUN - 9 mg/dL???Creatinine-Blood - 0.4 mg/dL???Estimated GFR Creatinine - 131 ML/MIN/1.73 M2???Calcium - 9.1 mg/dL CBC w/ Differential (02/17/2023) ???WBC - 9.7 k/mm3???RBC - 4.46 m/mm3???Hgb - 8.5 Gm/dL???Hct - 29.2 %???MCV - 65.5 femtoliters???MCH - 19.1 pg???MCHC - 29.1 g/dL???Platelet Count - 222 k/mm3???RDW-SD - 60.8 femtoliters???MPV - NOTMEASURED???Nucleated RBC (Automated) - 0.0 #/100 WBC'S???Abs. NRBC - 0.0 k/mm3???Abs. Neut - 5.8 k/m m3???Abs. Lymph - 3.1 k/mm3???Abs. [place] - 0.7 k/mm3???Abs. Eo - 0.0 k/mm3???Abs. Baso - 0.0 k/mm3???Neut % - 60.3 %???Lymph % - 31.8 %???[place] % - 7.3 %???Eos % - 0.2 %???Baso % - 0.1 %???RBC Morphology - FEW???Platelet Estimate - ADEQUATE???Imm Gran - 0.3 %???Abs. Imm Gran - 0.0 k/mm3 Comprehensive Metabolic Panel (02/15/2023) ???Sodium - 143 mmol/L???Potassium - 4.0 mmol/L???Chloride - 108 mmol/L???Bicarbonate Level - 24 mmol/L???Anion Gap - 11???Glucose Level - 76 mg/dL???BUN - 6 mg/dL???Creatinine-Blood - 0.4 mg/dL???Estimated GFR Creatinine - 130 ML/MIN/1.73 M2???Calcium - 9.2 mg/dL???Protein, Total - 6.7 Gm/dL???Albu min - 4.2 Gm/dL???AG Ratio - 1.7???Alkaline Phosphatase - 74 units/L???AST (SGOT) - 20 units/L???ALT (SGPT) - 21 units/L???Bilirubin, Total - 0.2 mg/dL COVID-19, RSV, and Flu A/B, Rapid PCR (02/15/2023) ???Influenza A PCR - NEGATIVE???Influenza B PCR - NEGATIVE???RSV PCR - NEGATIVE???COVID-19 PCR Specimen Source - NASAL???COVID-19 PCR Result - NEGATIVE CRP (02/15/2023) ???C-Reactive Protein - 2.4 mg/dL ESR (02/15/2023) ???Sed Rate - 35 mm/hr HOLD GEL TUBE (02/15/2023) ???Hold Gel Top - SPECIMEN DISCARDED AFTER 1 WEEK HOLD LAVENDER TUBE (02/15/2023) ???Hold Lavender Top - SPECIMEN DISCARDED AFTER 24 HOURS. Lactate Level (02/15/2023) ???Lactate - 1.2 mmol/L Lipase (02/15/2023) ???Lipase - 45 units/L Serum Qualitative (02/15/2023) ??? Serum Qual - NEGATIVE Urinalysis w/hold for Urine Culture (02/15/2023) ???Appear/Color, Urine - YELLOW???Specific [place], Urine - 1.023???pH, Urine - 6.5???Albumin, Urine - TRACE???Glucose, Urine - NEGATIVE???Ketones, Urine - NEGATIVE???Bilirubin, Urine - NEGATIVE???Hemoglobin, Urine - NEGATIVE???Nitrite, Urine - NEGATIVE???Leukocyte, Urine - NEGATIVE???Urobilinogen - NORMAL???WBC's, Urine - 2 /HPF???RBC's, Urine - 2 /HPF???Squamous Epith - 8 /HPF???Mucus - SLIGHT???Hold Urine Culture - Testing available 48 hours from time of collection. Allergies (NKA means No Known Allergies) vancomycin Problems No qualifying data available Education Materials Below is the list of Educational Leaflet Providered with your Discharge Instructions. Prednisone Oral Tablet?? Crohn's Disease?? Discharge Instructions for Crohn's Disease?? Valuables and Belongings I fully understand and agree that [facility] accepts no responsibility for all my personal property including clothing, toilet articles, radios, jewelry, dentures, hearing aids, rings, money, or any other property that is in my possession or is brought to me after admission. I understand certain valuables may be placed in a hospital safe for a short period of time. I understand that the hospital is not liable for loss or damage due to accident, fire, or other natural occurrence while said property is in the safe. I accept full responsibility for any personal property that I keep with me, and will not hold the hospital responsible in case of loss or disappearance. I acknowledge that i have been encouraged to send valuables and belongings home. ?? Review of Valuable and Belonging List: With patient, With witness Date for Pt to Sign Valuables/Belongings: 02/15/23 15:42:00 ?? Other Discharge Information ?? Wound Assessment?? Wound Assessment?? Wound Location I: Leg, right lower Wound Type I: Blister Wound I, Present on Admission: Yes ? Pulmonary Rehab Status?? Pulmonary Rehab Discharge Status?? Respiratory Rate: 20 br/min ? Common Emergency Awareness Tips IS IT A STROKE? Act FAST and Check for these signs: FACE Does the face look uneven? ARM Does one arm drift down? SPEECH Does their speech sound strange? TIME Call at any sign of stroke ?? Heart Attack Signs Chest discomfort: Most heart attacks involve discomfort in the center of the chest and lasts more than a few minutes, or goes away and comes back. It can feel like uncomfortable pressure, squeezing, fullness or pain. Discomfort in upper body: Symptoms can include pain or discomfort in one or both arms, back, neck, jaw or stomach. Shortness of breath: With or without discomfort. Other signs: Breaking out in a cold sweat, nausea, or lightheaded. Remember, MINUTES DO MATTER. If you experience any of these heart attack warning signs, call to get immediate medical attention! ?? Smoking can increase your chances of developing chronic health problems and can cause harmful effects to other family members in your house. If you smoke, you are strongly encouraged to quit. Please call [facility] Music Messenger (MM) Link at [phone] or [phone] ([phone]) or log in to [email or web address] for referrals to smoking cessation programs. ?? 988 Suicide & Crisis Lifeline is available 18/11 if you or someone you know needs to find a reason to keep living. By calling 458 you'll be connected to a skilled, trained counselor at a crisis center in your area. INPATIENT DISCHARGE INSTRUCTIONS SIGNATURE PAGE PRESTON CLINTON Location:[facility] Registration Date and Time:02/15/2023 09:23 EDT Primary Care Physician: Not on Staff, PCP Attending Physician: Liv Karimi MDmad, I PRESTON CLINTON, have received the above patient education materials/instructions and have verbalized understanding. If ambulance or transport services are being used I further acknowledge being given a choice of service. ?? If you need to contact me, please call me at this number: . Patient/Family And Consumer Sciences Teacher Name: Patient/Family And Consumer Sciences Teacher Signature: Relationship to Patient: Witness Name/Signature: Date: * Laura Karimi MD: PERFORM Event Display: Patient Education Leaflets Authored Date: [id number] Prednisone Oral Tablet ?? [id number] Prednisone Oral Tablet Brands: Deltasone Usos Malathi medicamento se usa para las siguientes afecciones: ??? enfermedad inflamatoria ??? inmunosupresi??n ??? trastorno sangu??manan ??? COVID-19 (coronavirus) ??? c??ncer ??? trastorno autoinmune ??? trastorno endocrino ??? reacci??n al??rgica ?? Instrucciones Kinde el medicamento con alimentos. Guarde a temperatura ambiente, alejado del calor, la khurram y la humedad. No lo guarde en el ba??o. Es importante que contin??e tomando todas las dosis de malathi medicamento a la hora indicada aunque se sienta omkar. Si olvida moe marcelle dosis a tiempo, t??kierra brock pronto lo recuerde. Si es martha la hora de la dosis siguiente, no tome la dosis olvidada. Vuelva al horario normal. No tome dos dosis al mismo tiempo. Las interacciones con otros medicamentos pueden cambiar la forma en que act??an los medicamentos o aumentar el riesgo de presentar efectos secundarios. Informe a angela profesionales sanitarios acerca de todos los medicamentos que usa. [place] incluye medicamentos con y sin receta m??dica, vitaminas y medicamentos a base de hierbas. Hable con flores m??dico o farmac??utico antes de empezar o dejar de usar cualquier medicamento. Informe a flores m??dico si angela s??ntomas no mejoran o si empeoran. Malathi medicamento puede afectar angela niveles de az??car en wen. Si tiene diabetes, hable con flores m??dico antes de cambiar la dosis de flores medicamento para la diabetes. Malathi medicamento puede afectar la fuerza de angela huesos. Si tiene osteoporosis (debilitamiento de los huesos) o corre un mayor riesgo de tenerlo, es posible que flores m??dico le recomiende alimentos ricos en calcio y vitamina D. Es muy importante que asista a todas las citas para evaluaciones y pruebas m??dicas mientras usa malathi medicamento. ?? Precauciones Informe a flores m??dico y a flores farmac??utico si alguna vez fernandez tenido marcelle reacci??n al??rgica a un medicamento. Malathi medicamento puede causar sangrado intenso del est??tete o los intestinos. Deje de moe malathi medicamento y llame a flores m??dico inmediatamente si nota alguna se??al de sangrado. El sangrado puede causar dolor de est??tete, v??willis de un l??quido parecido a caf?? molido y heces de color gonzalez, o alquitranadas y oscuras. No use el medicamento m??s veces de lo indicado. Consulte a flores m??dico antes de beber alcohol mientras usa malathi medicamento. Evitar fumar mientras se est?? usando malathi medicamento. Fumar podr??a aumentar flores riesgo de tener sangrado en el est??tete. Malathi medicamento puede reducir la capacidad del cuerpo de luchar contra infecciones. Evite el contacto con personas que tengan un resfriado, la gripe u otra infecci??n. Comun??quese con flores m??dico sitiene fiebre, tos, dolor de garganta o escalofr??os. Hable con flores proveedor de atenci??n m??dica antes de aplicarse cualquier vacuna. Malathi medicamento pasa a la leche materna. Consulte a flores m??dico antes de amamantar. Fozia el embarazo, malathi medicamento solo debe usarse cuando sea claramente necesario. Hable con flores m??dico acerca de los riesgos y beneficios. Lleve siempre marcelle tarjeta de identificaci??n o use un brazalete de alerta m??dica que indique flores afecci??n m??dica. No comparta malathi medicamento con otras personas a quienes no se les recet??. ?? Efectos Secundarios La siguiente es marcelle lista de algunos efectos secundarios comunes de malathi medicamento. Hable con el m??dico para saber qu?? debe hacer en geoff de tener estos u otros efectos secundarios. ??? acn? sensaci??n de agitaci??n o dificultad para dormir ??? p??rdida de apetito ??? cyndee concentraci??n de az??car en la wen ??? cyndee presi??n arterial ??? n??useas y v??mitos ??? indigesti??n estomacal o dolor abdominal Llame al m??dico u obtenga atenci??n m??dica de inmediato si nota cualquiera de estos efectos secundarios m??s graves: ??? sangrado o moretones ??? dolor en los huesos ??? tos con wen, o v??willis con aspecto de poso de caf? depresi??n o sentimiento de tristeza ??? hinchaz??n de las piernas, pies y lópez ??? fiebre o escalofr??os ??? latidos del coraz??n acelerados o irregulares ??? cambios en la menstruaci??n (per??odos ausentes o menos frecuentes) ??? cambios de estado de ??britni ??? dolor muscular o calambres ??? convulsiones ??? adelgazamiento de la piel ??? dolor intenso del est??tete o las v??as digestivas ??? heces oscuras, de aspecto alquitranado ??? cansancio o debilidad, extra??o o sin causa aparente ??? aumento en la frecuencia urinaria ??? visi??n borrosa o cambios en la visi??n ??? aumentode peso repentino o inexplicado ??? heridas que tardan mucho en sanar Algunas personas podr??an tener reacciones al??rgicas a malathi medicamento. Entre los s??ntomas pueden incluirse: dificultad para respirar, erupci??n en la piel, comez??n, hinchaz??n o mareos intensos.Si nota algunos de estos s??ntomas, busque asistencia m??dica r??pidamente. ?? Extra Hable con flores m??dico, enfermero o farmac??utico si tiene alguna pregunta acerca de malathi medicamento. ?? [email or web address]?[email or web address] NOTA IMPORTANTE: En malathi documento hay marcelle explicaci??n breve sobre c??mo usar el medicamento, perono incluye todo lo que hay que saber acerca del medicamento. Flores m??dico o flores farmac??utico podr??a suministrarle otros documentos acerca de flores medicamento. Comun??quese con ellos si tiene alguna pregunta. Siga siempre angela consejos. Marcelle descripci??n m??s completa de malathi medicamento est?? disponibleen ingl??s. Escanee malathi c??digo en flores tel??fono inteligente o en flores tableta, o use la direcci??n web que aparece a continuaci??n. Tambi??n puede pedirle a flores farmac??utico marcelle copia impresa. Si tiene alguna pregunta, h??gasela a flores farmac??utico. La exhibici??n y el uso de esta informaci??n sobre f??rmacos est?? sujeta a los T??rminos de Uso. Copyright(c) 2022 [employer]. ?? 2520-1992 [employer]. All rights reserved. This information is not intended as a substitute for professional medical care. Always follow your healthcare professional's instructions. ?? * Laura Karimi MD: PERFORM Event Display: Patient Education Leaflets Authored Date: [id number] Crohn's Disease ?? [id number] Enfermedad de Crohn La enfermedad de Crohn es marcelle inflamaci??n intermitente del tubo intestinal. Esta es marcelle inflamaci??n cr??brian (de buddy plazo). Fozia el brote de los s??ntomas puede meredith un dolor abdominal m??s intenso junto con fiebre. Puede aparecer mucosidad, wen o pus en las heces. Entre un brote y otro, la inflamaci??n disminuye y generalmente no hay s??ntomas. La enfermedad de Crohn es marcelle forma de la enfermedad inflamatoria de los intestinos.?? Los s??ntomas de la enfermedad de Crohn pueden incluir lo siguiente: ??? C??licos o dolor abdominales ??? Diarrea, en ocasiones con wen, que se alterna con estre??imiento ??? Heces con mucosidad ??? Sangrado rectal ??? Dolor en el recto ??? Fiebre ??? [place] energ??a??? Disminuci??n del apetito y p??rdida de peso ??? Hinchaz??n y abdomen inflamado ??? N??useas o v??mitos ??? Dolor en las articulaciones ?lceras en la boca ??? Problemas de enrojecimiento y dol or en los ojos ??? Erupciones en la anne anal u otros problemas anales Nadie sabe qu?? causa exactamente la enfermedad de Crohn y no tiene milton. El objetivo del tratamiento es controlar y aliviar los s??ntomas y prevenir complicaciones, para que pueda llevar marcelle rochelle plena y activa. Barbie??n tratamiento ??viktor funciona para todas las personas, nathan se pueden hacer muchas cosas para ayudar. Alimentaci??n Los alimentos no causan la enfermedad de Crohn, nathan pueden afectarla. Desafortunadamente, no existe marcelle dieta que funcione para todas las personas. Mantenga un registro de alimentos para descubrir aqu?? es sensible. Estas son algunas cosas que puede probar.? Coma m??s lento y en cantidades gianna??as a la vez, nathan con mayor frecuencia. Recuerde, siempre puede comer m??s si todav??a tiene hambre, nathan no puede comer menos marcelle vez que haya comido demasiado. ??? Los alimentos con alto contenido de fibra son complicados. Si omkar pueden ayudar con el estre??imiento, pueden empeorar la hinchaz??n, los calambres, los gases y la diarrea. ??? Si flores enfermedad de Crohn involucra el intestino christianson, no consumir productos l??cteos que contienen lactosa puede ayudar a aliviar algunos s??ntomas. ??? Trate de eliminar los alimentos grasos y las yesica. ??? Coma menos az??car. ??? Se pueden controlar la hinchaz??n o el exceso de gases. Al??mitali de los alimentos que producen gases nirmal los frijoles, el repollo, el br??coli y la coliflor. ??? Trate de no consumir bebidas y jugos de frutas. Estos pueden empeorar la hinchaz??n y la diarrea. ??? La cafe??na, el alcohol y los estimulantes pueden empeorar los s??ntomas. Estos incluyen el caf??, el t??, los refrescos, las bebidas energ??pito y el chocolate. ?? Estilo de rochelle Aunque el estr??s no causa la enfermedad de Crohn, a menudo es un factor en los brotes de s??ntomas. Tambi??n puede afectar c??mo se siente y afronta flores problema de mario. ??? Analice las cosas que parezcan empeorar angela s??ntomas, nirmal el estr??s y las emociones joyce. ??? El asesoramiento o terapia a menudo puede ayudar a aliviar el estr??s. Tambi??n lo pueden hacer las medidas de autoayuda, nirmal el ejercicio, el yoga y la meditaci??n. ??? La depresi??n puede formar parte de esta enfermedad y se pueden recetar antidepresivos. [place]ena en realidad puede ayudar con la diarrea, el estre??imiento y los calambres, as?? nirmal con la depresi??n. ??? Fumar no causa la enfermedad de Crohn, nathan puede e mpeorar los s??ntomas. Adem??s, puede hacer que la enfermedad sea m??s intensa y m??s dif??cil de controlar. Es muy importante que deje de fumar si tiene la enfermedad de Crohn. ?? Medicamentos Flores proveedor de atenci??n m??dica podr??a recetarle medicamentos. Si es as??, t??melos siempre siguiendo las instrucciones del proveedor.??Con la enfermedad de Crohn, generalmente se necesitan medicamentos a buddy plazo. Helena se debe a que el control de la enfermedad es muy importante para evitar complicaciones en el futuro.??Para los brotes agudos de flores enfermedad, se pueden recetar medicamentos. Contacte a flores proveedor de atenci??n m??dica si los necesita. ??? Cons??ltele antes de moe cualquier tipo de medicamentos contra la diarrea. ??? No tome medicamentos antinflamatorios nirmal ibuprofeno o naproxeno. ??? Considere los suplementos nutricionales. Particularmente, debe considerarlos si la diarrea es prolongada o si no est?? comiendo o est?? perdiendo peso.?? Si necesita suplementos, hable con flores proveedor de atenci??n m??dica para obtener la mejor recomendaci??n. Trate de no consumir los suplementos de hierbas ya que la Administraci??n de Alimentos y Medicamentos (FDA, por angela siglas en ingl??s) no los eval??a. Debido a esto, no hay forma de tener certeza sobre flores seguridad y pureza. ?? Visitas de control Realice el seguimiento con flores proveedor de atenci??n m??dica, o seg??n lo que se le haya indicado.??Si se le romie?? marcelle muestra de heces o se le realiz?? un cultivo, se le informar?? si flores tratamientodebe cambiar.??Tambi??n puede necesitar an??lisis de wen, procedimientos o estudios de im??genes. Llame seg??n le hayan indicado para pedir los resultados. ?? Apoyo Los grupos de apoyo para personas con la enfermedad de Crohn pueden ser marcelle shae de informaci??n ??til sobre c??mo otras personas sobrellevan esta enfermedad. Ellos est??n disponibles personalmente, por tel??fono, o por Internet. Cont??ctese con los siguientes recursos para obtener m??s informaci? ?n. ??? Crohn???s and Colitis Foundation of [place] , www.ccfa.org ??? [facility] de Informaci??n sobre Enfermedades Digestivas (National Digestive Diseases Information Clearinghouse, NDDIC), digestive.niddk.nih.gov ?? Cu??ndo buscar atenci??n m??dica Llame a flores proveedor de atenci??n m??dica de inmediato ante cualquiera de las siguientes situaciones: ??? Fiebre de 100.4?F (38?C) o m??s cyndee, o nirmal le haya indicado flores proveedor de atenci??nm??dica ??? Dolor abdominal que no responde a las medidas normales ??? Mucosidad, pus o gianna??as cantidades de wen en las heces (oscuras o de color gonzalez vivo) ??? V??mitos persistentes ??? Hinchaz??n y dolor abdominal que no se va luego de algunas horas ?? Cu??ndo llamar al 911 Llame al 911 si ocurre algo de lo siguiente: ??? Dificultad para respirar ??? Confusi??n ??? Somnolencia extrema o dificultad para despertarse ??? Desmayos o p??rdida del conocimiento ??? Frecuencia card??aleksandar acelerada ??? Gran cantidad de wen en las heces (oscura o de color gonzalez vivo) ?? Last Reviewed Date: 2019 ?? [id number] [employer]. Todos los derechos reservados. Esta informaci??n no pretende sustituir la atenci??n m??dica profesional. S??lo flores m??dico puede diagnosticar y tratar un problema de mario. ?? * UmLaura reid MD: PERFORM Event Display: Patient Education Leaflets Authored Date: [id number] Discharge Instructions for Crohn's Disease ?? 18250 Instrucciones de cyndee para la enfermedad de Crohn Usted tiene la enfermedad de Crohn. Flores tubo digestivo se hincha y se inflama. Todas las capas del tubo digestivo pueden verse afectadas. No existe marcelle milton para la enfermedad de Crohn.??Nathan puede recibir tratamiento para los s??ntomas. Para controlar angela s??ntomas, siga las instrucciones de flores proveedor de atenci??n m??dica y tenga cuidado con lo que come. Cuidados en el hogar Estas son algunas recomendaciones para flores cuidado en el hogar: ??? Colabore con flores proveedor de atenci??n m??dica para determinar qu?? tratamientos son los que m??s le convienen. ??? Kinde angela medicamentos exactamente nirmal se le haya indicado. o H??gale saber a flores proveedor de atenci??n m??dica si padece efectos secundarios que le causan malestar. o No deje de moe angela medicamentos sin antes consultar con flores proveedor de atenci??n m??dica. ??? Puede resultar ??til evitar determinados alimentos por un tiempo. De acuerdo con flores afecci??n, pueden incluir cafe??na (caf??, t?? y bebidas cola), comidas picantes, productos l??cteos y frutas y verduras crudas. Para algunas personas, estos alimentos pueden ser dif??ciles de digerir y pueden empeorar los s??ntomas de forma abrupta. Flores proveedor de atenci??n m??dica puede derivarlo con un nutricionista para decidir cu??les son las mejores opcionesde alimentos para usted. ??? Trate de consumir varias comidas gianna??as al d??a en lugar de mehdi comidas abundantes. ??? No fume. Fumar tabaco empeora la enfermedad.? Asista a todas las visitas de control, aun si no presenta s??ntomas. ??? Consulte con flores proveedor de atenci??n m??dica sobre la cirug??a para el tratamiento de la enfermedad de Crohn. La cirug??a no curar?? la enfermedad. Sin embargo, puede ayudar a controlar los s??ntomas. Solamente flores proveedor de atenci??n m??dica y ustedpueden decidir si la cirug??a es la mejor opci??n para usted. ??? Obtenga m??s informaci??n sobre flores afecci??n. Visite el sitio web de la Fundaci??n de Crohn y Colitis Ulcerosa (Crohn???s and ColitisFoundation) en www.crohnscolitisfoundation.org o llame al??[phone]. ?? Control de la nutrici??n Es posible que pueda comer martha cualquier alimento hasta experimentar un episodio. Al igual que cualquier persona, debe elegir alimentos sanos. Sin embargo, algunos de los alimentos m??s sanos puedenempeorarle los s??ntomas. Estar pendiente de angela alimentos problem??ticos podr??a ser ??til. Pregunte al proveedor de atenci??n m??dica cualquier landen que tenga sobre marcelle alimentaci??n saludable. ?? Cu??ndo llamar a flores proveedor de atenci??n m??dica Llame de inmediato al proveedor de atenci??n m??dica si nota alguno de los siguientes s??ntomas: ??? Dolor vincenzo en el abdomen o sensaci??n de hinchaz??n despu??s de comer ??? Lesiones en la boca??? Lesiones en la anne anal (alrededor de flores recto) ??? Fiebre de 100.4? F??( 38?C) o superior, o seg??n se lo indique flores proveedor ??? Escalofr??os ??? Falta de apetito o p??rdida de peso ???Heces con marcelle cantidad gianna??a de wen. ??? N??useas o v??mitos ??? Erupciones en la piel o pielque supura ??? Cambios en la vista ?? Cu??ndo llamar al 911 Llame al 911si tiene algo de lo siguiente: ??? Heces con noni wen ?? Last Reviewed Date: 2021 ?? [id number] [employer]. Todos los derechos reservados. Esta informaci??n no pretende sustituir la atenci??n m??dica profesional. S??lo flores m??dico puede diagnosticar y tratar un problema de mario. ?? Patient Care team information Care Team Personnel Name: Julia Rowell Position: [facility] RN Member Role: Primary Care Nurse Name: Joyce Sifuentes RN Position: [facility] RN Member Role: Primary Care Nurse Name: Not on Staff, PCP Position: [facility] Physician (General Medicine) Member Role: PCP Name: Ivett Garcia RN Position: [facility] RN Member Role: Primary Care Nurse Name: *Emery DE GUZMAN Attending Position: [facility] ED Medicine MD Name: Bethany Mcgrath RN Position: [facility] ED RN W/OE and Tasks Member Role: Patient Care Provider Name: Ольга Hussein Position: [facility] ED TA [facility] Member Role: Windlasser
[2023-03-03 16:56] LABS: UPreg QC Valid YES; Urine Pregnancy NEGATIVE (NEGATIVE)
--- NOTE | 2023-03-03 16:59 | MHC.EDTECH ---
t/w attempted labs x1 when pt brought to room 12. pt known very difficult stick. unsuccessful x1. pct doyle approached pt to draw labs at wanda cardozo request. pt refused. pt request ultrasound iv line place. taiwo colon informed.
[2023-03-03 17:50] LABS: Basophils Percent Auto 0.3 % (0-2); Eosinophils Absolute Auto 0.1 X10*3/uL (0.0-0.4); Eosinophils Percent Auto 0.9 % (0-4); Hemoglobin 11.4 g/dl (12.0-16.0); Imm Gran Abs Auto 0.02 X10*3/uL (0.00-0.03); Imm Gran Pct Auto 0.2 % (0.0-0.4); Lymphocytes Percent Auto 29.8 % (20-40); MANUAL DIFF FLAG SCAN; Red Cell Distribution Width 26.5 % (11.0-16.0); SCAN SMEAR FLAG 1
[2023-03-03 17:52] LABS: Hematocrit 39.5 % (37.0-47.0); Lymphocytes Absolute Auto 2.9 X10*3/uL (1.2-4.9); Mean Corpuscular HGB Conc 28.9 g/dl (31.0-35.0); Mean Corpuscular Hemoglobin 18.6 pg (27.0-33.0); Monocytes Absolute Auto 0.7 X10*3/uL (0.1-1.2); Monocytes Percent Auto 7.5 % (2-11); Neutrophils Absolute Auto 5.9 x10*3/uL (2.0-8.3); Neutrophils Percent Auto 61.3 % (45-73); Platelet Count 454 X10*3/uL (160-400); Red Blood Count 6.14 X10*6/uL (4.20-5.50); White Blood Count 9.6 X10*3/uL (4.8-10.8)
[2023-03-03] MEDS: ondansetron HCL 4 MG/2 ML VIAL IVPUSH (17:58)
[2023-03-03 18:05] LABS: Lactic Acid 0.9 mmol/L (0.5-2.0)
[2023-03-03 18:08] LABS: Alanine Aminotransferase 10 U/L (0-31); Albumin Level 4.4 g/dL (3.5-5.0); Alkaline Phosphatase 77 U/L (39-117); Anion Gap 13 (12-20); Aspartate Amino Transferase 15 U/L (5-31); Bilirubin Total 0.4 mg/dL (0.0-1.0); Blood Urea Nitrogen 6 mg/dL (9-16); C Reactive Protein 1.27 mg/dL (< or = 0.50); Carbon Dioxide 26 mmol/L (22-29); Chloride 106 mmol/L (96-108); Creatinine Clr Calc Pharmacy 77.1; Estimated Glomerular Filt Rate > 60; Glucose Random 83 mg/dL (60-115); Lipase 25 U/L (8-78); Potassium 3.2 mmol/L (3.3-5.1); Sodium 142 mmol/L (135-145); Total Protein 8.8 g/dL (6.5-8.0)
[2023-03-03 18:16] LABS: Mean Corpuscular Volume 64.3 fL (80.0-98.0); PLT ABN DIST 1
[2023-03-03 18:18] LABS: HCG Quantitative < 2 mIU/mL; SLIDE REVIEW VERIFIED
[2023-03-03 18:26] LABS: Erythrocyte Sedimentation Rate 14 MM/HR (0-20)
[2023-03-03] MEDS: HYDROmorphone HCl 1 MG/ML SYRINGE IVPUSH (18:47)
[2023-03-03 19:11] VITALS: BP 120/74; PULSE 85; RESP 16; TEMP 36.6; O2SAT 99
[2023-03-03] MEDS: iohexoL 350 MG/ML 100 ML INFUS..BTL IV (19:33)
[2023-03-03] MEDS: 0.9 % Sodium Chloride 1,000 ML 999 ML IV (20:04)
[2023-03-03] MEDS: Ketorolac Tromethamine 30 MG/ML VIAL IVPUSH (20:20)
--- NOTE | 2023-03-03 20:40 | PC.NURSE ---
multiple attempts to obtain second set of blood cultures; pt difficult stick. Morris Glynn aware; will start abx per approval.
[2023-03-03] MEDS: cefTRIAXone sodium 1 GM in 0.9 % Sodium Chloride 50 ML IV (20:42)
--- NOTE | 2023-03-03 20:50 | PC.NURSE ---
ivf and abx infusing at this time. pt medicated per jun. ileostomy present R. side abd stoma appears beefy red liquid feces present in bag. pt reports pain worse in this area however diffused abd pain. pt reports some nausea reports vomiting in am. call romo in reach.
[2023-03-03] MEDS: HYDROmorphone HCl 0.5 MG/0.5 ML SYRINGE 0.25 MG IVPUSH (22:15)
--- NOTE | 2023-03-03 22:15 | PC.NURSE ---
dilaudid vial tossed by this Rn prior to scanning; waste witnessed by Dorie BRAN.
--- NOTE | 2023-03-03 22:22 | PC.NURSE ---
pt medicated per mar. pt tearful stating that medication doesn't do nothing I need more than 1 mg. pt educated that this is order per Morris GARCIA; pt accepting medication however continues to swear at this RN about medication dosage. Morris GARCIA at bedside.
[2023-03-03 22:24] VITALS: PULSE 82; RESP 18; O2SAT 98
[2023-03-03] MEDS: Morphine Sulfate Immed Release 15 MG TABLET PO (22:49)
--- NOTE | 2023-03-03 22:55 | PC.NURSE ---
pt refused potassium as she states that shits ugly. educated pt it is being given because her potassium was decreased. pt continues to refuse. Morris GARCIA aware.
[2023-03-03 23:06] VITALS: PULSE 75; RESP 17; O2SAT 100
== END 2023-03-03 23:08 | disposition home or self-care (01) ==
PROVIDERS: Physician Assistant; Emergency Provider Internal Medicine; PCP Nurse Practitioner Family
DX: N39.0 Urinary tract infection, site not specified (principal); R10.9 Unspecified abdominal pain; F17.210 Nicotine dependence, cigarettes, uncomplicated; Z71.6 Tobacco abuse counseling; Z79.899 Other long term (current) drug therapy
CPT/HCPCS: 36415; 74177; 80053; 81001; 81025; 83605; 83690; 84702; 85025; 85652; 86140; 87040; 87086; 96361; 96374; 96375; 96376; 99284; J0696; J1170; J1885; J2405; Q9967